=== PATIENT | female | born 1950 | race Two or more races ===

== ENCOUNTER 2024-09-26 09:21 | Inpatient (IN) | payer OTHER, MEDICAID, MEDICARE, SELFPAY ==
[2024-09-26] VITALS (8 sets, daily range): BP systolic 140–211; BP diastolic 60–100; PULSE 63–90; RESP 18–20; TEMP 36.4–36.7; O2SAT 94–97; BMI 47.5
--- NOTE | 2024-09-26 09:58 | XR_ITS ---
Examination: CT chest with intravenous contrast CT abdomen with intravenous contrast CT pelvis with intravenous contrast 2-D coronal and sagittal reconstructions Time of exam: September 26, 2024 1302 hrs. Indications: Right-sided abdominal pain radiating to the back beginning 2 weeks ago, palpable mass right side of the abdomen CTDI: vol (mGy) : 16.9 DLP: (mGycm): 1104 Technique: Multiple axial images of the chest, abdomen and pelvis with intravenous contrast, 3.0 mm slice thickness. Images obtained post intravenous injection Isovue 370 60 cc. 2-D sagittal and coronal reconstructions. Low dose protocols were performed. One or more of the following dose reduction techniques were used; automated exposure control, adjustment of the mA and/or KV according to patient size, use of iterative reconstruction technique. Findings: No thoracic aortic aneurysm dilatation Main pulmonary artery segment 33 mm No paratracheal tracheobronchial or bronchopulmonary adenopathy Pathologic right axillary lymphadenopathy, the largest right axillary mass 5.6 cm Retroareolar right breast mass, axial image 39, measuring 16 mm with possible skin thickening Thickening of the right chest wall, axial image 58, measuring up to 16 mm At least 18 bilateral pulmonary nodules, the largest in the right upper lobe 22 mm and the largest in the left lung 10 mm Liver cysts No gallstones Retrocardiac gastric hernia Solid-appearing splenic lesion 16 mm No pancreatic mass No adrenal mass Peritoneal tumor nodules left upper abdomen, 23 mm, 14 mm, anterior abdomen 20 mm No hydronephrosis Normal appendix 10 mm fat-containing umbilical hernia Colonic diverticulosis Axial image 224 suspicious for 30 x 32 mm sigmoid colon has been Urinary bladder intact Subcutaneous soft tissue metastatic masses left lateral pelvic wall image 239, measuring 34 mm, upper posterior right lateral abdominal wall image 114, measuring 22 mm Prominent osteopenia Osteolytic lesion posterior L5 vertebral body, 14 mm image 263 Osteolytic lesion 12 mm right iliac bone image 291 Impression: Pathologic right axillary lymphadenopathy 16mm retroareolar right breast mass Thickening of the right chest wall measuring up to 16 mm Recommend bilateral breast sonography diagnostic mammography follow-up Numerous metastatic pulmonary nodular masses 16 mm solid splenic lesion Peritoneal soft tissue tumor nodules 30 x 32 mm solid mass in the sigmoid colon, recommend colonoscopy to confirm malignant neoplasm of the sigmoid colon Subcutaneous soft tissue metastatic masses as above Osteolytic lesion L5, right iliac bone Consider whole body PET CT scan follow-up
--- NOTE | 2024-09-26 09:59 | PD.EDRME ---
Rapid Medical Screening Exam RME Arrival date/time: 09/26/24 09:21 74-year-old female presents emergency department complains of right flank pain right-sided back pain and abdominal pain patient also mentioned that she has a ball right flank region Chief Complaint: Back Pain/Injury Time Seen by Provider: 09/26/24 09:37 Vital signs: Vital Signs Temperature 98.0 F 09/26/24 09:46 Pulse Rate 77 09/26/24 09:46 Respiratory Rate 18 09/26/24 09:46 Blood Pressure 189/70 H 09/26/24 09:46 Pulse Oximetry (%) 95 09/26/24 09:46 Oxygen Delivery Method Room Air 09/26/24 09:46
[2024-09-26 10:47] LABS: Collection Type, Urine Clean Catch
[2024-09-26 10:55] LABS: Basophils % (Auto) 0 % (0-2.5); Eosinophils # (Auto) 0.1 Thou/mm3 (0.0-0.5); Eosinophils % (Auto) 2 % (0-10); Hematocrit 41.7 % (36.0-46.0); Hemoglobin 14.3 g/dL (12.0-16.0); Immature Granulocytes % (Auto) 1 % (0-0); Immature Granulocytes Auto 0.04 Thou/mm3 (0.00-0.00); Lymphocytes # (Auto) 1.4 Thou/mm3 (1.0-4.8); Lymphocytes % (Auto) 20 % (10-50); Mean Corpuscular HGB Conc 34.3 g/dl (31.0-37.0); Mean Corpuscular Hemoglobin 29.1 pg (25.0-35.0); Mean Corpuscular Volume 85 fL (80-100); Monocytes # (Auto) 0.7 Thou/mm3 (0.0-0.8); Monocytes % (Auto) 10 % (0-12); Neutrophils # (Auto) 4.7 Thou/mm3 (1.8-7.7); Neutrophils % (Auto) 67 % (37-80); Nucleated Red Blood Cell % 0 /100 WBC (0); Platelet Count 224 Thou/mm3 (140-440); RDW Standard Deviation 39.8 fL (36.4-46.3); Red Blood Count 4.91 Miln/mm3 (4.00-5.20)
[2024-09-26 11:11] LABS: Alanine Aminotransferase 14 U/L (10-49); Albumin, Serum 4.4 gm/dL (3.4-4.8); Albumin/Globulin Ratio 1.6 (1.2-2.2); Alkaline Phosphatase 90 U/L (46-116); Anion Gap 8 (7-16); Aspartate Amino Transferase 12 U/L (0-34); BUN/Creatinine Ratio 23 Ratio (12-20); Bilirubin,Total 0.5 mg/dL (0.3-1.2); Blood Urea Nitrogen 16 mg/dL (9-23); C-Reactive Protein 1.2 mg/dL (0.0-0.9); Calcium 9.2 mg/dL (8.3-10.6); Calcium (Corrected) 9.2 mg/dL (8.5-10.1); Carbon Dioxide 28.1 mMol/L (20.0-31.0); Chloride 105 mMol/L (98-107); Creatinine (Component) 0.7 mg/dL (0.6-1.3); Estimated Creatinine Clearance 76.3 mL/min (>60); Globulin 2.8 gm/dL (2.3-3.5); Glucose 128 mg/dL (74-106); Lipase 31 U/L (12-53); Osmolality,Calculated 284 (275-295); Potassium 4.1 mMol/L (3.4-5.1); Sodium 141 mMol/L (136-145); Total Protein 7.2 gm/dL (5.7-8.2); eGFR > 60 See Note
[2024-09-26 11:13] LABS: Bilirubin,Urine Negative (Negative); Blood,Urine Negative (Negative); Clarity,Urine Clear (Clear/Hazy); Color,Urine Yellow (Lt Yel-Yel); Glucose, Urine Negative (Negative); Ketones,Urine Negative (Negative); Leukocyte Esterase,Urine Positive (Negative); Nitrite,Urine Negative (Negative); Protein,Urine Trace (Neg - Trace); RBC,Urine 4 /hpf (0-3); Specific Gravity,Urine 1.031 (1.001-1.035); Squamous Epithelial Cell,Urine 7 /hpf (0-5); Urobilinogen,Urine Negative mg/dL (0.0-1.0); WBC,Urine 33 /hpf (0-5)
[2024-09-26 11:14] LABS: Culture Indicated,Urine Yes
--- NOTE | 2024-09-26 14:22 | EDNOTE_ITS ---
ED Back Injury Pain RME/HPI General Chief Complaint: Back Pain/Injury Stated Complaint: r side back pain x 2 weeks Time Seen by Provider: 09/26/24 09:37 Arrival date/time: 09/26/24 09:21 74-year-old female presents emergency department complains of right flank pain right-sided back pain and abdominal pain patient also mentioned that she has a ball right flank region Limitations: no limitations RME / HPI RME / HPI Narrative: 09/26/24 09:21 74-year-old female presents emergency department complains of right flank pain right-sided back pain and abdominal pain patient also mentioned that she has a ball right flank region Related Data Allergies Allergy/AdvReac Type Severity Reaction Status Date / Time NKA* Allergy Uncoded 09/26/24 09:21 Review of Systems Review of Systems Systems Reviewed: All systems reviewed, normal except as documented Constitutional Constitutional: Reports system reviewed and no additional complaints, except as documented, Denies fever(s) and Denies headache(s) Eyes Eyes: Reports system reviewed and no additional complaints, except as documented and Denies blurry vision ENT Ears, Nose, Mouth, and Throat: Reports system reviewed and no additional complaints, except as documented, Denies headache(s), Denies nasal congestion and Denies nasal discharge Cardiovascular Cardiovascular: Reports system reviewed and no additional complaints, except as documented, Denies chest pain and Denies dyspnea Respiratory Respiratory: Reports system reviewed and no additional complaints, except as documented, Denies chest congestion, Denies cough and Denies dyspnea Gastrointestinal Gastrointestinal: Reports system reviewed and no additional complaints, except as documented and Reports abdominal pain Musculoskeletal Musculoskeletal: Reports system reviewed and no additional complaints, except as documented and Reports back pain Integumentary/Breasts Skin/Breast: Reports system reviewed and no additional complaints, except as documented and Denies rash Neurologic Neurologic: Reports system reviewed and no additional complaints, except as documented, Reports as per HPI and Denies headache(s) Past Medical History Past Medical History CARDIAC: Negative Cardiac Disorders RESPIRATORY: Negative Asthma GENITOURINARY: Negative Renal Disease ENDOCRINE: Negative Diabetes Mellitus Type 2 HEMATOLOGIC: Negative Sickle Cell Disease Social History SMOKING STATUS: Never smoker ED Exam General Limitations: Present no limitations General appearance: Present alert and in no apparent distress Head Head exam: Present atraumatic, normocephalic and normal inspection Eye Eye exam: Present normal appearance, PERRL and EOMI ENT ENT exam: Present normal exam, normal oropharynx and mucous membranes moist Neck Neck exam: Present normal inspection, full ROM and trachea midline Chest Chest inspection: Present normal inspection and symmetric chest wall rise Respiratory Respiratory exam: Present normal lung sounds bilaterally Cardiovascular Cardiovascular exam: Present regular rate, normal rhythm and normal heart sounds Abdominal Exam Abdominal exam: Present normal bowel sounds and other (Palpable mass right side of abdomen) Extremities Exam Extremities exam: Present normal inspection and full ROM Back Exam Back exam: Present normal inspection and full ROM Neurological Exam Neurological exam: Present alert, oriented X3 and CN II-XII intact Psychiatric Psychiatric exam: Present normal affect and normal mood Skin Skin exam: Present warm, dry, intact and normal color Course Quality Measures none Orders Category Date Time Status COVID-19 Screening Questionnaire NOW Care 09/26/24 14:[address] Screening NOW Care 09/26/24 09:59 Active Decision to Admit X1 Care 09/26/24 14:22 Active Insert IV NOW Care 09/26/24 09:59 Active Consult to Gastroenterology Stat Cons 09/26/24 14:21 Ordered Consult to Oncology Stat Cons 09/26/24 14:[address] chest abdomen pelvis w Stat Exams 09/26/24 09:58 Completed CBC Stat Lab 09/26/24 10:25 Completed CRP [C-Reactive Protein] Stat Lab 09/26/24 10:25 Completed Comprehensive Metabolic Panel Stat Lab 09/26/24 10:25 Completed Lipase Stat Lab 09/26/24 10:25 Completed UA, C/S IF [Urinalysis, C/S if Indicated] Stat Lab 09/26/24 10:38 Completed Urine Culture Stat Lab 09/26/24 10:38 Received Vital Signs Vital signs: Vital Signs Temperature 98.0 F 09/26/24 09:46 Pulse Rate 77 09/26/24 09:46 Respiratory Rate 18 09/26/24 09:46 Blood Pressure 189/70 H 09/26/24 09:46 Pulse Oximetry (%) 95 09/26/24 09:46 Oxygen Delivery Method Room Air 09/26/24 09:46 O2 saturation 95% room air within normal limits Back Pain / Injury MDM Narrative MDM Narrative:: 74-year-old female presents emergency department complains of right flank pain right-sided back pain and abdominal pain patient also mentioned that she has a ball right flank region On exam patient does not appear ill or toxic patient's not appear in acute distress Lab work unremarkable other than patient appears to have leukocytosis no bacteria I reviewed the patient's CAT scan patient has significant findings consistent with metastatic cancer I believe patient will require biopsy and multiple consults for further evaluation Consultation: I spoke with Dr. Tyler who states we should bring the patient to the hospital for colonoscopy and further evaluation Consultation: I spoke with Dr. Meredith who states he will consult At time of admission patient is in no distress Spoke with resident about the patient urinalysis results I did not treat the urine here in the emergency department I gave him the option of treating on an inpatient basis immediately or to wait for culture Patient data External records reviewed:: [facility] previous records Clinical information provided by:: patient Social determinants that could affect healthcare access:: none Patient has the following chronic illnesses:: See history How is presenting disease/condition affected by chronic disease/condition?: uneffected by Evaluation data The following diagnostics were reviewed and interpreted by me:: lab results and radiology exam(s) Lab and/or radiology exams considered but not ordered:: Labs and radiology obtained Interpretation Summary: Reviewed by me Medications / Prescriptions Medications or Prescriptions considered but not ordered:: No meds Medication administrations:: No meds Consultations Consultation(s) initiated? (list below): Yes Consultation #1 (Physician, Specialty, Details): Dr. Tyler GI specialist Consultation #2 (Physician, Specialty, Details): Dr. Meredith oncology Diagnosis Differential diagnosis back pain/injury: lumbar radiculopathy, strain of lumbar region and other (Breast cancer, colon cancer, metastatic cancer) Most likely diagnosis given after review of the tests above:: Metastatic cancer Admission Indicated Admission indicated?: indicated Admission Request Was there a request for admission?: Yes Admission Attestation Admission request attestation: Discussed case with [] from Hospitalist service regarding admission. Discussed patients ED course, exam findings, labs, and radiology results. The Hospitalist [agrees,declines] to accept the patient for admission. Disposition Plan Disposition Plan: Admit Discharge Plan Plan Patient Disposition: Admit Acute Care w/in Hospital Disposition Comment: Stable Prescriptions/Referrals Referrals: Iris Nuno MD [Primary Care Provider] - In 1 week Problem List Clinical Impression: Metastatic cancer, Mass of colon, Osteolytic lesion Patient/Caregiver Discharge Instructions Print Language: Frisian Stand Alone Forms: Jennifer Award Info., Patient Portal Info Letter PA/JOURNEYMAN PIPE FITTER Supervising Physician PA/JOURNEYMAN PIPE FITTER Supervising Physician: Dr Patterson
--- NOTE | 2024-09-26 16:02 | ESHP_ITS ---
<Statement entered by Nathan Conteh MD - 09/26/24 16:13> This patient is a 74-year-old female admitted for sigmoid mass with possible advanced malignancy workup. CT abdomen was significant for multiple findings including sigmoid mass breast mass pulmonary nodules and osteolytic lesions. GI has been consulted as well as oncologist for further evaluation. Initial vitals showed hypertensive urgency. CRP was elevated. UA showed pyuria however patient denied any symptoms. She came to the hospital due to intractable pain in her right flank. Patient denied following up with any PCP as outpatient. Patient has a remote history of using methamphetamine as per patient's own history. Will likely follow-up on colonoscopy as per GI recommendations and started on GoLytely prep. Will consider CT-guided biopsy for breast mass. Ordered tumor markers for further evaluation. All labs and orders were reviewed. I saw and examined the patient, and I agree with current management stated by Dr Razia MD,PGY1. Plan of care was discussed with the attending physician and resident physician. Disclaimer: Despite multiple revisions, due to the dictation software being used, the document bellow may not be free of grammatical errors including phonetic/typographic errors. However, this does not deter from our commitment to providing health care in the patient's best interest in mind. Dr. Puja MD, PGY 2 Documentation for date of: 09/26/24 HPI History of Present Illness History of present illness: CC: abdominal pain Patient is a 74-year-old female with limited past medical history of possible diabetes mellitus (?) denied any medication and has not followed with primary care provider in over 5 years. Patient arrived to the emergency room with a chief complaint of abdominal pain stated that 06/17 and does not radiate. Patient stated the pain has been ongoing for the past 2 week, but decided to come in today to the emergency room because pain was constant. Patient stated diffuse tenderness and has also noted hard distend abdomen near the right lower quadrant. Patient is also stated she has a right sided breast lump ongoing for over 2 weeks. Patient denies any discharge or discoloration from breast lump. Patient denied any recent weight loss. Patient denied any hematemesis or hematochezia. Denied melena. Lumbar pain also present, increased with movement toward same side,does not radiate. Patient denied any sick contacts. Patient denied any dysuria or urinary hesitation. Patient denied history of hypertension. Possible history of diabetes but no medication on board. Admitted on 09/26/2024 for intractable abdominal pain. ER Course: In the emergency room patient blood pressure was elevated 189/70, kidney function within normal limits, within a normal WBC count of 7, glucose within normal limits and C-reactive protein 1.2 (high). AST and ALT numbers within normal limits. UA positive for esterase and WBC count with 33, no bacteria noted. Urine culture obtained. Abdomen chest pelvis CT showed: Pathological right axial lymphadenopathy, a 16mm right atrial alveolar right breast mass, thickening of the right chest wall measuring up to 16 mm, multiple masslike pulmonary nodules, 16mm solid splenic lesion, peritoneal soft tissue tumor nodules, 38 x 32 mm solid mass in the sigmoid colon, subcutaneous soft tissue metastatic masses, osteolytic lesions of 5 right iliac bone. Recommendation to follow-up with whole-body PET CT scan Dr. Tyler and Dr. Meredith oncology were consulted from the emergency room. 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 NO Hoarseness, NO sore throat, NO swollen neck. Cardiac: NO Palpitations, NO dyspnea on exertion, NO orthopnea, NO paroxysmal nocturnal dyspnea, NO edema Respiratory: NO Shortness of Breath, NO Wheezing, NO Cough, NO Sputum, NO hemoptysis GI:NO appetite, Yes nausea, NO vomiting, NO dysphagia, NO changes in bowel frequency, NO stool color, NO diarrhea, NO constipation, NO hemetemesis, NO hemorrhoids, NO melena, NO hematechezia, Yes abdominal pain, NO jaundice Renal: NO frequency, NO hesitancy, NO urgency, NO hematuria, NO nocturia, NO incontinence MSK: NO muscle weakness, NO gout, NO arthritis, NO muscle stiffness, yes Lumbar pain Neuro: NO headaches, NO tremors, NO weakness, NO paralysis, NO seizures, NO loss of consciousness, NO numbness. Hem: NO anemia, NO easy bruising/bleeding, NO petechiae, NO purpura Endo: NO heat/cold intolerance, NO excessive sweating, NO polyuria, NO polydipsia, NO polyphagia, NO thyroid problems, NO diabetes Pysch: NO mood, NO anxiety, NO depression Exam Vital Signs Temp Pulse Resp BP Pulse Ox O2 Del Method 98.0 F 77 18 189/70 H 95 Room Air 09/26/24 09:46 09/26/24 09:46 09/26/24 09:46 09/26/24 09:46 09/26/24 09:46 09/26/24 09:46 Narrative Exam General Appearance: Alert & Oriented X3, well-nourished female who is lying in bed in mild distress, abnormal tissue grwoth noted on right breast exam. HEENT: Skull symmetrical and atraumatic. Conjunctivae pink and moist. Pupils equal, round, reactive to light and accommodation (PERRL). External ear without lesion or discharge. Straight, nares patient, mucosa pink, no discharge. No thyroid nodule appreciated. Cardio: Normal Rate and Rhythm with S1 and S2 heart sounds. No murmurs or extra heart sounds auscultated. No bruits on carotid auscultation. No peripheral edema or cyanosis. Lungs: Symmetric with good expansion. Chest and back non-tender. Breath sounds vesicular without crackles, wheezing or rhonchi Abdomen: diffuse tender, Non-distended, Normal Reactive Bowel Sounds, increased hard abnormal tissue growth subqutaneous noted on physical exam Neuro: Alert, cooperative, oriented to person, place, and time. Speech clear. CN grossly intact. Upper motor strength 5/5 and Lower motor strength 5/5. Sensation intact. Results: Labs 09/26/24 10:25 09/26/24 10:25 Labs: Short CBC 09/26/24 Range/Units 10:25 WBC 7.0 (3.6-11.0) Thou/mm3 Hgb 14.3 (12.0-16.0) g/dL Hct 41.7 (36.0-46.0) % Plt Count 224 (140-440) Thou/mm3 BMP 09/26/24 10:25 Sodium 141 Potassium 4.1 Chloride 105 Carbon Dioxide 28.1 BUN 16 Creatinine 0.7 Glucose 128 H Calcium 9.2 Liver Function 09/26/24 Range/Units 10:25 Total Bilirubin 0.5 (0.3-1.2) mg/dL AST 12 (0-34) U/L ALT 14 (10-49) U/L Alkaline Phosphatase 90 (46-116) U/L Albumin 4.4 (3.4-4.8) gm/dL Urine 09/26/24 Range/Units 10:38 Urine Color Yellow (Lt Yel-Yel) Urine Clarity Clear (Clear/Hazy) Urine pH 6.0 (5.0-7.0) Ur Specific [place] 1.031 (1.001-1.035) Urine Protein Trace (Neg - Trace) Urine Glucose (UA) Negative (Negative) Quality Measures Quality Measures none Advance care planning discussed with:: other Medications Home Medications and Allergies Allergies Allergy/AdvReac Type Severity Reaction Status Date / Time No Known Allergies Allergy Unverified 09/26/24 15:54 Visit Medications Acetaminophen (Acetaminophen 325 Mg Tablet) 650 mg PO Q6H PRN PRN Reason: Mild Pain 1-3 or Fever >100.4 Stop: 10/26/24 15:34 Hydrocodone Bitart/Acetaminophen (Hydrocodone/Apap 5/325 Tablet) 1 tab PO Q4HR PRN PRN Reason: PAIN SCALE 4-10(Mod-Sev Stop: 10/01/24 15:34 Heparin Sodium (Porcine) (Heparin Sod Inj 5000 Unit/Ml Vial) 5,000 unit SC Q12HR ZACARIAS Stop: 10/10/24 20:59 Lisinopril (Lisinopril 2.5 Mg Tablet) 5 mg PO QDAY ZACARIAS Stop: 10/26/24 15:44 Morphine Sulfate (Morphine Sulf Inj 10 Mg/Ml Vial) 1 mg IVP Q4HR PRN PRN Reason: Pain 7-10 Stop: 10/01/24 15:51 Ondansetron HCl (Ondansetron Inj 2 Mg/Ml Inj 2 Ml) 4 mg IV Q6H PRN; Protocol PRN Reason: NAUSEA OR VOMITING Stop: 10/26/24 15:34 Pantoprazole Sodium (Pantoprazole Inj 40 Mg Vial) 40 mg IV QDAY ZACARIAS Stop: 10/26/24 15:59 Discontinued Medications Pantoprazole Sodium (Pantoprazole 40 Mg Tablet) 40 mg PO QDAY ZACARIAS Stop: 10/27/24 08:59 Polyethylene Glycol/Electrolytes (Na Venegas/Nahco3/Laith/Peg (Golytely) 4,000 Ml Btl) 4,000 ml PO X1 ONE Stop: 09/26/24 15:42 Assessment & Plan Plan Patient is a 74-year-old female with limited past medical history of possible diabetes mellitus (?) denied any medication who was admitted on 09/26/2024 for intractable abdominal pain. #Intractable abdominal pain On to have increased abdominal pain with diffuse tenderness and on physical exam noted to have a abnormal tissue growth subcutaneous, not soft not mobile. Noted about 2 weeks ago as well as a breast abnormal subcutaneous tissue growth. On CT chest abdomen several masses were noted. Included but not limited to a 38 x 32 solid mass in the sigmoid colon, metastasis to soft tissue of against abdominal wall, osteolytic llesions of the bone, right axial lymphadenopathy, right alveolar right breast mass, splenic lesions, and masslike pulmonary nodules. Given findings on CT malignancy cannot be ruled out. DDx: Pancreatitis less likely given Lipase 36 vs less likely gastroporesis from diabetes Mellitus as patient has not follow up with a pcp. Plan -CEA, CA 19, AFP -Colonoscopy scheduled for tomorrow -FOBT -Clear liquid diet -GoLytely -Protonix 40 IV daily -Drug screen -Pain Management (Acetaminophe, Noroc, and Morphine) -CBC CMP -Gastroenterology consulted, Dr. Tyler, appreciate recommendations -Radiation oncology consulted, Dr. Meredith, appreciate recommendations #Hypertension urgency #Hypertension Possible history of hypertension, but patient denied any medication on board for that. May be secondary to pain. Plan -Lisinopril 10 mg daily -A1c -Lipid panel -TSH -A1c -Drug screen Health Maintenance: Disp: Pt is currently admitted to floors for further management of abdominal pain , awaiting colonoscopy FEN: Clear Liquid Diet DVT: on subQ heparin GI: protonix 40 mg IV Code: Full Code - The patient's plan was discussed with attending Dr. Sorensen and senior residents Dr. Puja Randle MD PGY1 Internal Medicine Attending Provider Attestation/Addendum I attest that I was physically present for the evaluation, physical examination, lab and imaging review of the patient with the residents. I discussed the case with the residents and agree with the findings and plans of care as documented above. Patient is a 74 years old female without known past medical history presented to the ED with complaint of abdominal pain.? Patient has been having the pain for the last 2 weeks but recently started becoming severe, 10 out of 10 and decided to visit the ED.? In the ED, she was found to be hypertensive with blood pressure of 189/70.? Abdomen/chest/pelvis CT was done which showed multiple masses right breast, chest wall, lungs, spleen, peritoneum, colon and osteolytic bone lesion.? Discussed with GI, recommended inpatient admission, colonoscopy with biopsy.? Oncology has also been consulted by ED.? We will admit the patient for intractable pain needing IV analgesics.? We will start her on antihypertensives as well.? Plan to discuss with oncology and decide on obtaining biopsies. Mina Sorensen MD
[2024-09-26 16:16] LABS: Magnesium 2.1 mg/dL (1.6-2.6); Phosphorous 3.7 mg/dL (2.4-5.1)
[2024-09-26 16:52] LABS: Amphetamine/Methamp Scrn,U Negative (Negative); Barbiturate Screen,Urine Negative (Negative); Benzodiazepines Screen,Urine Negative (Negative); Benzoylecgonine Screen, Ur Negative (Negative); Fentanyl Screen,Urine Negative (Negative); Opiate Screen,Urine Negative (Negative); THC Screen,Urine Negative (Negative)
[2024-09-26] MEDS: Lisinopril 2.5 MG TABLET 10 MG PO (17:00)
[2024-09-26] MEDS: PANTOPRAZOLE INJ 40 MG VIAL IV (17:02)
[2024-09-26] MEDS: hydrALAZINE INJ 20 MG/ML VIAL 10 MG IV (17:55)
--- NOTE | 2024-09-26 18:16 | PC.CC ---
Pt Giuliana Jesus is a 74 yr old female admitted to hospitalist services for intractable abd pain, hypertension urgency. ASW met with pt and her daughter Sierra Jesus [phone] at bedside to complete initial assessment. Pt expressed verbal consent for her daughter to remain at bedside for assessment. At time of encounter pt is noted to be alert and oriented to person, place and situation. Pt expressed understanding admission orders. Pt able to confirm demographic information. Pt is from home [address] [place] [address] [address] Per pt her daughter lives with her in the home. Pt identifies her daughter Sierra as surrogate DM. At baseline pt reports being independent with ambulation and with completing her own ADLs. Per pt she was taking oral diabetic medication, but states she is uncertain if she is diabetic. Pt is not on dialysis. Pt does not require supplemental O2. Pt has a new primary provider Dr. Iris Nuno, whom pt will meet with for the first time on09/30/24 to establish care. [facility] pt [facility] At time of D/c pt will return home with family providing transport. At this time pt expresses no further concerns.
[2024-09-26] MEDS: HYDROcodone/APAP 5/325 TABLET 1 TAB PO ×2 (18:47→22:50)
--- NOTE | 2024-09-26 19:36 | ESCONSULT_ITS ---
HPI Data of Consult Requesting Physician: Mina Sorensen MD Primary Care Provider: Iris Nuno MD Consult Narrative Reason for consult: Pain right flank abnormal CT chest abdomen and pelvis with contrast History of present illness: 74 years old female presented to the hospital with right flank pain I got a call from physician stating Ray Berumen Case discussed CT scan of the abdomen pelvis and chest showed the following findings Pathological right axillary lymphadenopathy 16mm right subareolar breast mass Thickening of the right chest wall Multiple metastatic pulmonary nodules Peritoneal nodules multiple 30 x 32 mm mass sigmoid colon Subcutaneous soft tissue masses Osteolytic L5 lesion I advised admission for further evaluation management and possible oncology consultation Case also discussed with the internal medicine team GoLytely started Tumor markers ordered cc:: cc: Mina Sorensen MD Review of Systems Review of Systems Systems Reviewed: All systems reviewed, normal except as documented Past Medical History Surgical History OTHER SURGICAL HX: Diabetes mellitus type 2 BTL Essential hypertension Meds Home Medications and Allergies Home Medications ?Medication ?Instructions ?Recorded ?Confirmed ?Type No Known Home Medications 09/26/24 09/26/24 History Allergies Allergy/AdvReac Type Severity Reaction Status Date / Time No Known Allergies Allergy Unverified 09/26/24 15:54 Exam Vital Signs Temp Pulse Resp BP Pulse Ox O2 Del Method 97.7 F 76 19 202/92 H 96 Room Air 09/26/24 16:12 09/26/24 17:55 09/26/24 16:12 09/26/24 17:55 09/26/24 16:12 09/26/24 16:12 Constitutional Comments: Chronically ill-appearing Routine Respiratory Exam Comments: Normal to auscultation Routine Abdominal Exam Comments: Positive bowel sounds Results Labs 09/26/24 10:25 09/26/24 10:25 Labs: Short CBC 09/26/24 Range/Units 10:25 WBC 7.0 (3.6-11.0) Thou/mm3 Hgb 14.3 (12.0-16.0) g/dL Hct 41.7 (36.0-46.0) % Plt Count 224 (140-440) Thou/mm3 BMP 09/26/24 10:25 Sodium 141 Potassium 4.1 Chloride 105 Carbon Dioxide 28.1 BUN 16 Creatinine 0.7 Glucose 128 H Calcium 9.2 Liver Function 09/26/24 Range/Units 10:25 Total Bilirubin 0.5 (0.3-1.2) mg/dL AST 12 (0-34) U/L ALT 14 (10-49) U/L Alkaline Phosphatase 90 (46-116) U/L Albumin 4.4 (3.4-4.8) gm/dL Urine 09/26/24 Range/Units 10:38 Urine Color Yellow (Lt Yel-Yel) Urine Clarity Clear (Clear/Hazy) Urine pH 6.0 (5.0-7.0) Ur Specific [place] 1.031 (1.001-1.035) Urine Protein Trace (Neg - Trace) Urine Glucose (UA) Negative (Negative) Assessment and Plan Additional Assessment & Plan Additional Plan: # 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
[2024-09-26] MEDS: NA SU/NAHCO3/KC/PEG (Golytely) 4,000 ML BTL 4000 ML PO (20:31)
[2024-09-26] MEDS: HEPARIN SOD INJ 5000 UNIT/ML VIAL SC (20:33)
[2024-09-27] VITALS (28 sets, daily range): BP systolic 103–206; BP diastolic 40–84; PULSE 70–94; RESP 12–21; TEMP 35.9–36.7; O2SAT 93–99
[2024-09-27 03:12] LABS: AFP Non-Pregnant < 1.30 ng/mL (<8.10); Carcinoembryonic Antigen 1.1 ng/mL (0.0-5.0)
[2024-09-27 05:56] LABS: Basophils % (Auto) 0 % (0-2.5); Eosinophils # (Auto) 0.2 Thou/mm3 (0.0-0.5); Eosinophils % (Auto) 3 % (0-10); Hemoglobin 14.1 g/dL (12.0-16.0); Immature Granulocytes % (Auto) 0 % (0-0); Immature Granulocytes Auto 0.03 Thou/mm3 (0.00-0.00); Lymphocytes # (Auto) 1.5 Thou/mm3 (1.0-4.8); Lymphocytes % (Auto) 22 % (10-50); Mean Corpuscular HGB Conc 33.6 g/dl (31.0-37.0); Mean Corpuscular Volume 86 fL (80-100); Monocytes # (Auto) 0.9 Thou/mm3 (0.0-0.8); Monocytes % (Auto) 12 % (0-12); Neutrophils # (Auto) 4.3 Thou/mm3 (1.8-7.7); Neutrophils % (Auto) 62 % (37-80); Nucleated Red Blood Cell % 0 /100 WBC (0); Platelet Count 222 Thou/mm3 (140-440); RDW Standard Deviation 40.2 fL (36.4-46.3); Red Blood Count 4.86 Miln/mm3 (4.00-5.20)
[2024-09-27 06:24] LABS: Alanine Aminotransferase 13 U/L (10-49); Albumin, Serum 4.4 gm/dL (3.4-4.8); Albumin/Globulin Ratio 1.6 (1.2-2.2); Alkaline Phosphatase 87 U/L (46-116); Anion Gap 10 (7-16); Aspartate Amino Transferase 11 U/L (0-34); BUN/Creatinine Ratio 21 Ratio (12-20); Bilirubin,Total 0.6 mg/dL (0.3-1.2); Blood Urea Nitrogen 15 mg/dL (9-23); Carbon Dioxide 29.2 mMol/L (20.0-31.0); Chloride 101 mMol/L (98-107); Cholesterol 170 mg/dL (132-200); Creatinine (Component) 0.7 mg/dL (0.6-1.3); Estimated Creatinine Clearance 76.3 mL/min (>60); Globulin 2.8 gm/dL (2.3-3.5); Glucose 138 mg/dL (74-106); HDL Cholesterol 42 mg/dL (40-60); LDL Cholesterol,Calculated 105 mg/dL (0-130); Magnesium 2.1 mg/dL (1.6-2.6); Osmolality,Calculated 282 (275-295); Phosphorous 3.3 mg/dL (2.4-5.1); Potassium 4.2 mMol/L (3.4-5.1); Sodium 140 mMol/L (136-145); Thyroid Stimulating Hormone 3.38 uIU/mL (0.55-4.78); Total Protein 7.2 gm/dL (5.7-8.2); Triglycerides 114 mg/dL (30-150); eGFR > 60 See Note
--- NOTE | 2024-09-27 06:28 | ESCONSULT_ITS ---
HPI Data of Consult Consult date: 09/27/24 Requesting Physician: Mina Sorensen MD Primary Care Provider: Iris Nuno MD Consult Narrative Reason for consult: Suspected widespread malignancy History of present illness: 74-year-old lady who rarely saw physicians over the years admitted yesterday with symptoms of pain in her right flank. CT scan chest abdomen pelvis 09/26/2024 revealed pathological right ax lymphadenopathy 16 mm retroareolar right breast mass thickening of the right chest wall measuring up to 16 mm numerous metastatic pulmonary nodules peritoneal soft tissue tumor nodules 30 x 32 mm solid mass in sigmoid colon and numerous soft tissue metastatic masses. Also noted was osteolytic lesion L5 right iliac bone. Dr. Tyler senior java web developer is planning colonoscopy with possible biopsy today. CBC CMP unremarkable except mildly elevated glucose AFP CEA low. CA 15-3 CA 19?9 pending. Patient now referred for oncological consultation. cc:: cc: Mina Sorensen MD Past Medical History Family History OTHER FAMILY HX: Mother of esophageal CA. Social History SOCIAL: Limited mets and cannabis over 30 years ago non-smoker nondrinker retired from working as a care provider Past Medical History Comments PMH COMMENT: Hypertension diabetes mellitus tubal ligation Meds Home Medications and Allergies Home Medications ?Medication ?Instructions ?Recorded ?Confirmed ?Type No Known Home Medications 09/26/24 09/26/24 History Allergies Allergy/AdvReac Type Severity Reaction Status Date / Time No Known Allergies Allergy Unverified 09/26/24 15:54 Exam Vital Signs Temp Pulse Resp BP Pulse Ox O2 Del Method 97.7 F 74 18 175/75 H 95 Room Air 09/27/24 04:00 09/27/24 04:00 09/27/24 04:00 09/27/24 04:00 09/27/24 04:00 09/27/24 04:00 Narrative Exam Right axillary adenopathy and right breast mass palpated. Results Labs 09/27/24 04:42 09/27/24 04:42 Labs: Short CBC 09/26/24 09/27/24 Range/Units 10:25 04:42 WBC 7.0 7.0 (3.6-11.0) Thou/mm3 Hgb 14.3 14.1 (12.0-16.0) g/dL Hct 41.7 42.0 (36.0-46.0) % Plt Count 224 222 (140-440) Thou/mm3 BMP 09/26/24 09/27/24 10:25 04:42 Sodium 141 140 Potassium 4.1 4.2 Chloride 105 101 Carbon Dioxide 28.1 29.2 BUN 16 15 Creatinine 0.7 0.7 Glucose 128 H 138 H Calcium 9.2 9.0 Liver Function 09/26/24 09/27/24 Range/Units 10:25 04:42 Total Bilirubin 0.5 0.6 (0.3-1.2) mg/dL AST 12 11 (0-34) U/L ALT 14 13 (10-49) U/L Alkaline Phosphatase 90 87 (46-116) U/L Albumin 4.4 4.4 (3.4-4.8) gm/dL Urine 09/26/24 Range/Units 10:38 Urine Color Yellow (Lt Yel-Yel) Urine Clarity Clear (Clear/Hazy) Urine pH 6.0 (5.0-7.0) Ur Specific [place] 1.031 (1.001-1.035) Urine Protein Trace (Neg - Trace) Urine Glucose (UA) Negative (Negative) Assessment and Plan Additional Assessment & Plan Additional Plan: 1. Widespread malignancy involving right breast axilla lung bone, someone who rarely saw doctors over the years. 2. Solid mass in sigmoid colon awaiting colonoscopy and possible biopsy with Dr. Tyler. 3. Took the liberty of ordering a biopsy of right axillary node, due to high suspicion of adjacent breast cancer primary. Will follow.
[2024-09-27 06:38] LABS: CA 15-3 7.7 U/mL (<32.4)
[2024-09-27 06:51] LABS: Glucose Estimated Average 134 mg/dL (80-131); Hemoglobin A1C 6.3 % Hgb (4.8-6.0)
[2024-09-27] MEDS: Lisinopril 20 MG TABLET PO ×2 (08:36→15:50)
[2024-09-27] MEDS: PANTOPRAZOLE INJ 40 MG VIAL IV (08:36)
--- NOTE | 2024-09-27 10:36 | PC.SS ---
SS follow up note; Patient is pending Colonoscopy and pending Biopsy. GI is on board.
--- NOTE | 2024-09-27 10:57 | ESPR_ITS ---
<Statement entered by Nathan Conteh MD - 09/27/24 13:45> Patient was seen and examined at the bedside this morning. Patient reports that she is aware that she might have malignancy and oncologist Dr. Meredith spoke to her this morning about biopsy for axilla lymph node. Patient is currently drinking GoLytely prep for pending colonoscopy. Her blood pressure was elevated this morning 175/75. A1c was 6.3. We started her on lisinopril and increase the dose to 20 mg. Urine cultures are pending. Will follow-up with ultrasound- guided biopsy of axilla lymph node and colonoscopy as GI is also following the case. Patient was updated and all her concerns were addressed. Patient denied any bowel movement with blood. Hemoglobin remained stable.All labs and orders were reviewed. I saw and examined the patient, and I agree with current management stated by Dr Razia MD,PGY1. Plan of care was discussed with the attending physician and resident physician. Disclaimer: Despite multiple revisions, due to the dictation software being used, the document bellow may not be free of grammatical errors including phonetic/typographic errors. However, this does not deter from our commitment to providing health care in the patient's best interest in mind. Dr. Yady MD, PGY 2 Documentation for date of: 09/27/24 Subjective Subjective Interval history: No overnight events reported for patient. Patient pending colonoscopy, likely tonight as patient is almost complete with GoLytely and appears clear. Patient shared that 1969 there is possible diagnosis of uterine cancer but could also been cervical?patient is unsure. Patient followed up with a Pap smear which returned to normal. 3 years ago did experience ovarian pain but resolved on its own, no acute intervention taken. Patient has family support with her grandchildren and daughter who visits her. This morning patient shared that she had small bloody stool appearing bright red. SubQ heparin stopped and Compression device added. Dr. Meredith ordered axilllary biopsy. PT/INR ordered. Overall, patient is understanding of possible malignancy but still pending tumor markers and colonoscopy/biopsy. Lisinopril increased to 40 mg Qday given systolic bp of 174 and hydralazine still PRN. Exam Vital Signs Temp Pulse Resp BP Pulse Ox O2 Del Method 96.7 F L 77 20 157/58 H 99 Room Air 09/27/24 08:00 09/27/24 08:36 09/27/24 08:00 09/27/24 08:36 09/27/24 08:00 09/27/24 08:00 Narrative Exam General Appearance: Alert & Oriented X3, well-nourished female who is lying in bed in mild distress, abnormal tissue grwoth noted on right breast exam. HEENT: Skull symmetrical and atraumatic. Conjunctivae pink and moist. Pupils equal, round, reactive to light and accommodation (PERRL). External ear without lesion or discharge. Straight, nares patient, mucosa pink, no discharge. No thyroid nodule appreciated. Cardio: Normal Rate and Rhythm with S1 and S2 heart sounds. No murmurs or extra heart sounds auscultated. No bruits on carotid auscultation. No peripheral edema or cyanosis. Lungs: Symmetric with good expansion. Chest and back non-tender. Breath sounds vesicular without crackles, wheezing or rhonchi Abdomen: diffuse tender, Non-distended, Normal Reactive Bowel Sounds, increased hard abnormal tissue growth subqutaneous noted on physical exam Neuro: Alert, cooperative, oriented to person, place, and time. Speech clear. CN grossly intact. Upper motor strength 5/5 and Lower motor strength 5/5. Sensation intact. Objective Labs 09/27/24 04:42 09/27/24 04:42 Labs: Laboratory Results - last 24 hr 09/26/24 09/26/24 09/26/24 10:25 10:38 16:13 WBC 7.0 RBC 4.91 Hgb 14.3 Hct 41.7 MCV 85 MCH 29.1 MCHC 34.3 RDW Std Deviation 39.8 Plt Count 224 Neut % (Auto) 67 Lymph % (Auto) 20 [place] % (Auto) 10 Eos % (Auto) 2 Baso % (Auto) 0 Neut # (Auto) 4.7 Lymph # (Auto) 1.4 [place] # (Auto) 0.7 Eos # (Auto) 0.1 Baso # (Auto) 0.0 Immature Gran # (Auto) 0.04 H Absolute Nucleated RBC 0.00 Immature Gran % 1 H Nucleated RBC % 0 Sodium 141 Potassium 4.1 Chloride 105 Carbon Dioxide 28.1 Anion Gap 8 BUN 16 Creatinine 0.7 Estim Creat Clear Calc 76.3 eGFR > 60 BUN/Creatinine Ratio 23 H Glucose [address] Glu mg/dL Hemoglobin A1c Calculated Osmolality 284 Calcium 9.2 Corrected Calcium 9.2 Phosphorus 3.7 Magnesium 2.1 Total Bilirubin 0.5 AST 12 ALT 14 Alkaline Phosphatase 90 C-Reactive Prot, Quant 1.2 H Total Protein 7.2 Albumin 4.4 Globulin 2.8 Albumin/Globulin Ratio 1.6 Triglycerides Cholesterol LDL Cholesterol, Calc HDL Cholesterol Cholesterol/HDL Ratio Lipase 31 Tumor Marker AFP < 1.30 Carcinoembryonic Ag 1.1 CA 15-3 Antigen TSH Ur Collection Type Clean Catch Urine Color Yellow Urine Clarity Clear Urine pH 6.0 Ur Specific [place] 1.031 Urine Protein Trace Urine Glucose (UA) Negative Urine Ketones Negative Urine Blood Negative Urine Nitrite Negative Urine Bilirubin Negative Urine Urobilinogen (Auto) Negative Ur Leukocyte Esterase Positive Urine RBC 4 H Urine WBC 33 H Ur Squamous Epith Cells 7 H Urine Bacteria None Ur Culture Indicated? Yes Urine Opiates Screen Negative Urine Fentanyl Screen Negative Ur Barbiturates Screen Negative U Amphetamin/Meth Scrn Negative U Benzodiazepines Scrn Negative U Cocaine Metab Screen Negative U Marijuana (THC) Screen Negative 09/27/24 04:42 WBC 7.0 RBC 4.86 Hgb 14.1 Hct 42.0 MCV 86 MCH 29.0 MCHC 33.6 RDW Std Deviation 40.2 Plt Count 222 Neut % (Auto) 62 Lymph % (Auto) 22 [place] % (Auto) 12 Eos % (Auto) 3 Baso % (Auto) 0 Neut # (Auto) 4.3 Lymph # (Auto) 1.5 [place] # (Auto) 0.9 H Eos # (Auto) 0.2 Baso # (Auto) 0.0 Immature Gran # (Auto) 0.03 H Absolute Nucleated RBC 0.00 Immature Gran % 0 Nucleated RBC % 0 Sodium 140 Potassium 4.2 Chloride 101 Carbon Dioxide 29.2 Anion Gap 10 BUN 15 Creatinine 0.7 Estim Creat Clear Calc 76.3 eGFR > 60 BUN/Creatinine Ratio 21 H Glucose [address] Glu mg/dL 134 H Hemoglobin A1c 6.3 H Calculated Osmolality 282 Calcium 9.0 Corrected Calcium 9.0 Phosphorus 3.3 Magnesium 2.1 Total Bilirubin 0.6 AST 11 ALT 13 Alkaline Phosphatase 87 C-Reactive Prot, Quant Total Protein 7.2 Albumin 4.4 Globulin 2.8 Albumin/Globulin Ratio 1.6 Triglycerides 114 Cholesterol 170 LDL Cholesterol, Calc 105 HDL Cholesterol 42 Cholesterol/HDL Ratio 4.0 Lipase Tumor Marker AFP Carcinoembryonic Ag CA 15-3 Antigen 7.7 TSH 3.38 Ur Collection Type Urine Color Urine Clarity Urine pH Ur Specific [place] Urine Protein Urine Glucose (UA) Urine Ketones Urine Blood Urine Nitrite Urine Bilirubin Urine Urobilinogen (Auto) Ur Leukocyte Esterase Urine RBC Urine WBC Ur Squamous Epith Cells Urine Bacteria Ur Culture Indicated? Urine Opiates Screen Urine Fentanyl Screen Ur Barbiturates Screen U Amphetamin/Meth Scrn U Benzodiazepines Scrn U Cocaine Metab Screen U Marijuana (THC) Screen Quality Measures Quality Measures none Advance care planning discussed with:: other Assessment & Plan Assessment Current Active Medications: Generic Name Dose Route Start Last Admin Trade Name Freq PRN Reason Stop Dose Admin Acetaminophen 650 mg 09/26/24 15:35 Acetaminophen 325 Mg Tablet PO 10/26/24 15:34 Q6H PRN Mild Pain 1-3 or Fever >100.4 Hydrocodone Bitart/Acetaminophen 1 tab 09/26/24 15:35 09/26/24 22:50 Hydrocodone/Apap 5/325 Tablet PO 10/01/24 15:34 1 tab Q4HR PRN Administration PAIN SCALE 4-10(Mod-Sev Heparin Sodium (Porcine) 5,000 unit 09/26/24 21:00 09/27/24 08:28 Heparin Sod Inj 5000 Unit/Ml Vial SC 10/10/24 20:59 Not Given Q12HR ZACARIAS Hydralazine HCl 10 mg 09/26/24 17:28 09/26/24 17:55 Hydralazine Inj 20 Mg/Ml Vial IV 10/26/24 17:27 10 mg Q4HR PRN Administration hypertension Hydroxyzine HCl 10 mg 09/26/24 17:17 Hydroxyzine Hcl 10 Mg Tablet PO 10/26/24 17:16 Q6HR PRN ANXIETY Lisinopril 20 mg 09/27/24 09:00 09/27/24 08:36 Lisinopril 20 Mg Tablet PO 10/27/24 08:59 20 mg QDAY ZACARIAS Administration Melatonin 3 mg 09/26/24 21:00 09/27/24 02:19 Melatonin 3 Mg Tablet PO 10/26/24 20:59 Not Given HS ZACARIAS Morphine Sulfate 1 mg 09/26/24 15:52 Morphine Sulf Inj 10 Mg/Ml Vial IVP 10/01/24 15:51 Q4HR PRN Pain 7-10 Ondansetron HCl 4 mg 09/26/24 15:35 Ondansetron Inj 2 Mg/Ml Inj 2 Ml IV 10/26/24 15:34 Q6H PRN NAUSEA OR VOMITING Protocol Pantoprazole Sodium 40 mg 09/26/24 16:00 09/27/24 08:36 Pantoprazole Inj 40 Mg Vial IV 10/26/24 15:59 40 mg QDAY ZACARIAS Administration Plan Patient is a 74-year-old female with limited past medical history of possible diabetes mellitus (?) denied any medication who was admitted on 09/26/2024 for intractable abdominal pain. #Intractable abdominal pain #Hematochezia On to have increased abdominal pain with diffuse tenderness and on physical exam noted to have a abnormal tissue growth subcutaneous, not soft not mobile. Noted about 2 weeks ago as well as a breast abnormal subcutaneous tissue growth. On CT chest abdomen several masses were noted. Included but not limited to a 38 x 32 solid mass in the sigmoid colon, metastasis to soft tissue of against abdominal wall, osteolytic llesions of the bone, right axial lymphadenopathy, right alveolar right breast mass, splenic lesions, and masslike pulmonary nodules. Given findings on CT malignancy cannot be ruled out. DDx: Pancreatitis less likely given Lipase 36 vs less likely gastroporesis from diabetes Mellitus as patient has not follow up with a pcp. Diagnostics: CA 15, AFP, and CEA within limits. Plan -Colonoscopy scheduled for tomorrow -Axillary Biopsy -PT/PTT/INR for today and 09/28/2024 as well -Pending CA-19 -FOBT-Penidng -Clear liquid diet -GoLytely -Protonix 40 IV daily -Pain Management (Acetaminophe, Noroc, and Morphine) -CBC CMP -Gastroenterology consulted, Dr. Tyler, appreciate recommendations -Radiation oncology consulted, Dr. Meredith, appreciate recommendations #Hypertension #Hypertension urgency, improved. #Hyperlipidemia Possible history of hypertension, but patient denied any medication on board for that. Utox negative. A1c 6.3. ASCVD Risk Scole 32.1% Risk of Cardiovascular event (specially given elevated systolic blood pressure). Moderate to high intensitity statins. Start patient at moderate with 20 mg HS. Plan -Lisinopril 40 mg daily -Atorvastatin 20 mg HS Health Maintenance: Disp: Pt is currently admitted to floors for further management of abdominal pain , awaiting colonoscopy and axillary biopsy. FEN: Clear Liquid Diet, Colonoscopy scheduled for this evening 09/27/2024 DVT: compression device given single episode of hematochezia. GI: protonix 40 mg IV Code: Full Code - The patient's plan was discussed with attending Dr. Sorensen and senior residents Dr. Yady Randle MD PGY1 Internal Medicine Attending Provider Attestation/Addendum I attest that I was physically present for the evaluation, physical examination, lab and imaging review of the patient with the residents. I discussed the case with the residents and agree with the findings and plans of care as documented above. At bedside today, patient appears comfortable. Her pain is controlled with analgesics. She is planned for colonoscopy with GI today. Oncology on board, ordered axillary node biopsy. Mina Sorensen MD
--- NOTE | 2024-09-27 11:21 | PC.NURSE ---
Spoke with MD Eliana MD said that he will do the Biopsy In ultra sound, not in CT. Called Swapnil FOSTER to let him know to change the Modality to ultrasound instead of CT.
--- NOTE | 2024-09-27 11:31 | XR_ITS ---
Examinations: Ultrasound-guided percutaneous right axillary biopsy Right axillary sonography limited Exam date and time: September 27, 2024 1508 hours INDICATIONS: CT chest September 26, 2024 pathologic right axillary lymphadenopathy. Informed consent provided. Technique: A timeout was completed verifying correct patient, procedure, site, positioning, and special equipment if applicable Informed consent provided. The patient was placed in a supine position for the axillary biopsy Sonographic images of the breast were performed for localization of the enlarged axillary lymph node The patient's axilla was prepped and draped in sterile fashion. Maximum sterile barrier technique, hand hygiene, ultrasound sterile technique 1% lidocaine utilized for local anesthesia. Utilizing ultrasonographic guidance, 8 core biopsies were obtained of the suspicious axillary lymph node utilizing an 18-gauge BioPince needle. The specimens appears satisfactory. US guided axillary biopsy marker placement. Estimated blood loss 3 cc. The patient tolerated the procedure well and there were no complications. Impression: Successful ultrasound-guided percutaneous biopsy enlarged right axillary lymph node Ultrasound guided axillary biopsy marker placement.
[2024-09-27 13:22] LABS: Partial Thromboplastin Time 27.6 Seconds (22.0-36.0); Prothrombin Time 11.1 Seconds (9.0-12.2)
--- NOTE | 2024-09-27 16:08 | PC.NURSE ---
this nurse notified by HANDBAG OPERATOR of pt blood pressure 206/76 and heart rate 86, Wasiq notified, this nurse was instructed by MD to give PRN hydralazine, no new orders at this time.
[2024-09-27] MEDS: hydrALAZINE INJ 20 MG/ML VIAL 10 MG IV ×2 (16:12→16:54)
--- NOTE | 2024-09-27 16:45 | PC.NURSE ---
Harinder RN at bedside to take pt for colonoscopy, pt blood pressure is now 189/84 and heart rate 90, Dr. Conteh notified, MD placed new order for X1 hydralazine prior to sending pt to Endo.
--- NOTE | 2024-09-27 18:00 | SUR.PHASEI ---
pt drowsy but arouses to verbal commands, breathing unlabored, report from Deneen FOSTER
--- NOTE | 2024-09-27 19:02 | SUR.PHASEI ---
pt drowsy but arouses to verbal commands, breathing unlabored, report called to Swapnil FOSTER, pt meets discharge criteria for PACU, pt transferred to room at this time.
[2024-09-27] MEDS: ATORVASTATIN CALCIUM 20 MG TABLET PO (20:52)
[2024-09-27] MEDS: amLODIPine BESYLATE 5 MG TABLET PO (20:55)
[2024-09-27] MEDS: HYDROcodone/APAP 5/325 TABLET 1 TAB PO (23:40)
[2024-09-28] VITALS (7 sets, daily range): BP systolic 117–157; BP diastolic 63–85; PULSE 86–97; RESP 16–20; TEMP 36.3–36.7; O2SAT 91–96
[2024-09-28 06:08] LABS: Basophils % (Auto) 0 % (0-2.5); Eosinophils # (Auto) 0.1 Thou/mm3 (0.0-0.5); Eosinophils % (Auto) 1 % (0-10); Hematocrit 37.5 % (36.0-46.0); Hemoglobin 12.7 g/dL (12.0-16.0); Immature Granulocytes % (Auto) 0 % (0-0); Immature Granulocytes Auto 0.03 Thou/mm3 (0.00-0.00); Lymphocytes % (Auto) 14 % (10-50); Mean Corpuscular HGB Conc 33.9 g/dl (31.0-37.0); Mean Corpuscular Hemoglobin 29.3 pg (25.0-35.0); Mean Corpuscular Volume 87 fL (80-100); Monocytes # (Auto) 0.7 Thou/mm3 (0.0-0.8); Monocytes % (Auto) 9 % (0-12); Neutrophils # (Auto) 5.8 Thou/mm3 (1.8-7.7); Neutrophils % (Auto) 76 % (37-80); Nucleated Red Blood Cell % 0 /100 WBC (0); Platelet Count 191 Thou/mm3 (140-440); RDW Standard Deviation 41.5 fL (36.4-46.3); Red Blood Count 4.33 Miln/mm3 (4.00-5.20); White Blood Count 7.7 Thou/mm3 (3.6-11.0)
[2024-09-28 06:28] LABS: Partial Thromboplastin Time 26.1 Seconds (22.0-36.0)
[2024-09-28 06:57] LABS: Sodium 142 mMol/L (136-145)
[2024-09-28 06:58] LABS: Alanine Aminotransferase 11 U/L (10-49); Albumin, Serum 3.8 gm/dL (3.4-4.8); Albumin/Globulin Ratio 1.5 (1.2-2.2); Alkaline Phosphatase 75 U/L (46-116); Anion Gap 10 (7-16); Aspartate Amino Transferase 14 U/L (0-34); BUN/Creatinine Ratio 16 Ratio (12-20); Bilirubin,Total 0.7 mg/dL (0.3-1.2); Blood Urea Nitrogen 11 mg/dL (9-23); Calcium 8.6 mg/dL (8.3-10.6); Calcium (Corrected) 8.8 mg/dL (8.5-10.1); Carbon Dioxide 26.5 mMol/L (20.0-31.0); Chloride 106 mMol/L (98-107); Creatinine (Component) 0.7 mg/dL (0.6-1.3); Estimated Creatinine Clearance 76.3 mL/min (>60); Globulin 2.5 gm/dL (2.3-3.5); Glucose 125 mg/dL (74-106); Osmolality,Calculated 283 (275-295); Phosphorous 3.6 mg/dL (2.4-5.1); Potassium 3.8 mMol/L (3.4-5.1); Total Protein 6.3 gm/dL (5.7-8.2); eGFR > 60 See Note
[2024-09-28] MEDS: amLODIPine BESYLATE 5 MG TABLET PO (08:07)
[2024-09-28] MEDS: Lisinopril 20 MG TABLET 40 MG PO (08:07)
[2024-09-28] MEDS: PANTOPRAZOLE INJ 40 MG VIAL IV (08:07)
--- NOTE | 2024-09-28 10:16 | PC.SS ---
SS update: pending surgery consult.
[2024-09-28] MEDS: POTASSIUM CHLORIDE 20 mEq TABCR PO (10:27)
--- NOTE | 2024-09-28 12:43 | ESPR_ITS ---
<Statement entered by Nathan Conteh MD - 09/28/24 15:17> Patient was seen and examined at the bedside this morning. Patient's colonoscopy showed multiple polyps and large mass in the sigmoid colon for which GI specialist recommended consulting surgery, Dr Cole. He recommended to continue clear liquid diet for now. Although patient's UA showed pyuria and urine culture showed E. coli growth however patient denied any symptoms therefore no antibiotic coverage was given. Patient's daughter was updated regarding the colonoscopy results. Will likely continue with current management and await on ultrasound-guided biopsy results for a great lymph node ordered by oncologist Dr. Meredith. Patient's blood pressure improved with antihypertensives. Labs are unremarkable. All labs and orders were reviewed. I saw and examined the patient, and I agree with current management stated by Dr Razia MD,PGY1. Plan of care was discussed with the attending physician and resident physician. Disclaimer: Despite multiple revisions, due to the dictation software being used, the document bellow may not be free of grammatical errors including phonetic/typographic errors. However, this does not deter from our commitment to providing health care in the patient's best interest in mind. Dr. Yady MD, PGY 2 Documentation for date of: 09/28/24 Subjective Subjective Interval history: No overnight events reported for patient . Colonoscopy overnight with Dr. Tyler reported hemorrhoids, diverticulosis, polyps, and partially obstructing tumor in the sigmoid colon. Consult made for Dr. Cole. Patient updated by doctor Cole and Internal medicine team. Plan for resection for . NPO at midnight Friday for surgery on . Exam Vital Signs Temp Pulse Resp BP Pulse Ox O2 Del Method O2 Flow Rate 97.3 F 86 16 150/74 H 96 Room Air 3 09/28/24 11:43 09/28/24 11:43 09/28/24 11:43 09/28/24 11:43 09/28/24 11:43 09/28/24 11:43 09/27/24 17:50 Narrative Exam General Appearance: Alert & Oriented X3, well-nourished female who is lying in bed in mild distress, abnormal tissue grwoth noted on right breast exam. HEENT: Skull symmetrical and atraumatic. Conjunctivae pink and moist. Pupils equal, round, reactive to light and accommodation (PERRL). External ear without lesion or discharge. Straight, nares patient, mucosa pink, no discharge. No thyroid nodule appreciated. Cardio: Normal Rate and Rhythm with S1 and S2 heart sounds. No murmurs or extra heart sounds auscultated. No bruits on carotid auscultation. No peripheral edema or cyanosis. Lungs: Symmetric with good expansion. Chest and back non-tender. Breath sounds vesicular without crackles, wheezing or rhonchi Abdomen: diffuse tender, Non-distended, Normal Reactive Bowel Sounds, increased hard abnormal tissue growth subqutaneous noted on physical exam Neuro: Alert, cooperative, oriented to person, place, and time. Speech clear. CN grossly intact. Upper motor strength 5/5 and Lower motor strength 5/5. Sensation intact. Objective Labs 09/29/24 04:30 09/29/24 04:30 Labs: Laboratory Results - last 24 hr 09/27/24 09/28/24 04:42 04:55 WBC 7.7 RBC 4.33 Hgb 12.7 Hct 37.5 MCV 87 MCH 29.3 MCHC 33.9 RDW Std Deviation 41.5 Plt Count 191 D Neut % (Auto) 76 Lymph % (Auto) 14 [place] % (Auto) 9 Eos % (Auto) 1 Baso % (Auto) 0 Neut # (Auto) 5.8 Lymph # (Auto) 1.0 [place] # (Auto) 0.7 Eos # (Auto) 0.1 Baso # (Auto) 0.0 Immature Gran # (Auto) 0.03 H Absolute Nucleated RBC 0.00 Immature Gran % 0 Nucleated RBC % 0 PT 11.1 11.0 INR 1.0 1.0 APTT 27.6 26.1 Sodium 142 Potassium 3.8 Chloride 106 Carbon Dioxide 26.5 Anion Gap 10 BUN 11 Creatinine 0.7 Estim Creat Clear Calc 76.3 eGFR > 60 BUN/Creatinine Ratio 16 Glucose 125 H Calculated Osmolality 283 Calcium 8.6 Corrected Calcium 8.8 Phosphorus 3.6 Magnesium 2.0 Total Bilirubin 0.7 AST 14 ALT 11 Alkaline Phosphatase 75 Total Protein 6.3 Albumin 3.8 D Globulin 2.5 Albumin/Globulin Ratio 1.5 Quality Measures Quality Measures none Advance care planning discussed with:: other Assessment & Plan Assessment Current Active Medications: Generic Name Dose Route Start Last Admin Trade Name Freq PRN Reason Stop Dose Admin Acetaminophen 650 mg 09/26/24 15:35 Acetaminophen 325 Mg Tablet PO 10/26/24 15:34 Q6H PRN Mild Pain 1-3 or Fever >100.4 Hydrocodone Bitart/Acetaminophen 1 tab 09/26/24 15:35 09/27/24 23:40 Hydrocodone/Apap 5/325 Tablet PO 10/01/24 15:34 1 tab Q4HR PRN Administration PAIN SCALE 4-10(Mod-Sev Amlodipine Besylate 5 mg 09/27/24 21:00 09/28/24 08:07 Amlodipine Besylate 5 Mg Tablet PO 10/27/24 20:59 5 mg QDAY ZACARIAS Administration Atorvastatin Calcium 20 mg 09/27/24 21:00 09/27/24 20:52 Atorvastatin Calcium 20 Mg Tablet PO 10/27/24 20:59 20 mg HS ZACARIAS Administration Heparin Sodium (Porcine) 5,000 unit 09/26/24 21:00 09/27/24 08:28 Heparin Sod Inj 5000 Unit/Ml Vial SC 10/10/24 20:59 Not Given Q12HR ZACARIAS Hydralazine HCl 10 mg 09/26/24 17:28 09/27/24 16:12 Hydralazine Inj 20 Mg/Ml Vial IV 10/26/24 17:27 10 mg Q4HR PRN Administration hypertension Hydroxyzine HCl 10 mg 09/26/24 17:17 Hydroxyzine Hcl 10 Mg Tablet PO 10/26/24 17:16 Q6HR PRN ANXIETY Lisinopril 40 mg 09/28/24 09:00 09/28/24 08:07 Lisinopril 20 Mg Tablet PO 10/28/24 08:59 40 mg QDAY ZACARIAS Administration Melatonin 3 mg 09/27/24 21:00 Melatonin 3 Mg Tablet PO 10/26/24 20:59 HS PRN Sleep Morphine Sulfate 1 mg 09/26/24 15:52 Morphine Sulf Inj 10 Mg/Ml Vial IVP 10/01/24 15:51 Q4HR PRN Pain 7-10 Ondansetron HCl 4 mg 09/26/24 15:35 Ondansetron Inj 2 Mg/Ml Inj 2 Ml IV 10/26/24 15:34 Q6H PRN NAUSEA OR VOMITING Protocol Pantoprazole Sodium 40 mg 09/26/24 16:00 09/28/24 08:07 Pantoprazole Inj 40 Mg Vial IV 10/26/24 15:59 40 mg QDAY ZACARIAS Administration Plan Patient is a 74-year-old female with limited past medical history new diagnosis of hypertension who was admitted on 09/26/2024 for intractable abdominal pain and found to have pathologic right axillary lymphadenopathy, abdominal wall, numerous mets to pulmonary nodular masses, splenic lesions and obstructing sigmoid colon. #Sigmoid Mass colonoscopy #Post US guided Biopsy of Axillary lymph node biopsy #S/P Polypectomy due to multiple polyps in colon,colonoscopy #?Advanced Malignancy On to have increased abdominal pain with diffuse tenderness and on physical exam noted to have a abnormal tissue growth subcutaneous, not soft not mobile. Noted about 2 weeks ago as well as a breast abnormal subcutaneous tissue growth. On CT chest abdomen several masses were noted. Included but not limited to a 38 x 32 solid mass in the sigmoid colon, metastasis to soft tissue of against abdominal wall, osteolytic llesions of the bone, right axial lymphadenopathy, right alveolar right breast mass, splenic lesions, and mass like pulmonary nodules. Given findings on CT malignancy cannot be ruled out. Possible history of cervical cancer per history from patient. Surgery with Dr. Cole on . DDx: Pancreatitis less likely given Lipase 36 vs less likely gastroporesis from diabetes Mellitus as patient has not follow up with a pcp. Diagnostics: CA 15, AFP, and CEA within limits. CT: Pathologic right axillary lymphadenopathy; 16mm retroareolar right breast mass; Thickening of the right chest wall measuring up to 16 mm; Recommend bilateral breast sonography diagnostic mammography follow-up; Numerous metastatic pulmonary nodular masses; 16 mm solid splenic lesion; Peritoneal soft tissue tumor nodules; 30 x 32 mm solid mass in the sigmoid colon, recommend colonoscopy to confirm malignant neoplasm of the sigmoid colon; Subcutaneous soft tissue metastatic masses as above; Osteolytic lesion L5, right iliac bone; Consider whole body PET CT scan follow-up Plan -Colonoscopy scheduled for tomorrow -Axillary Biopsy -Pending CA-19 -Protonix 40 IV daily -Pain Management (Acetaminophe, Noroc, and Morphine) -CBC CMP -Gastroenterology consulted, Dr. Tyler, appreciate recommendations -Radiation oncology consulted, Dr. Meredith, appreciate recommendations -General Surgery Consulted, Dr. Cole, appreciate recommendations #Hypertension #Hypertension urgency, improved. #Hyperlipidemia Possible history of hypertension, but patient denied any medication on board for that. Utox negative. A1c 6.3. ASCVD Risk Scole 32.1% Risk of Cardiovascular event (specially given elevated systolic blood pressure). Moderate to high intensitity statins. Start patient at moderate with 20 mg HS. Plan -Lisinopril 40 mg daily -Amlodipine 10 mg Qday -Atorvastatin 20 mg HS #Asymptomatic Cystitis No treatment as patient is asymtomatic Plan -Monitor Health Maintenance: Disp: Pt is currently admitted to floors for further management of abdominal pain , awaiting colonoscopy and axillary biopsy. FEN: Clear Liquid Diet, advance to cardiac diet, plan for surgery for . DVT: compression device given single episode of hematochezia. GI: protonix 40 mg IV Code: Full Code - The patient's plan was discussed with attending Dr. Sorensen and senior residents Dr. Yady Randle MD PGY1 Internal Medicine Attending Provider Attestation/Addendum I attest that I was physically present for the evaluation, physical examination, lab and imaging review of the patient with the residents. I discussed the case with the residents and agree with the findings and plans of care as documented above. Mina Sorensen MD
--- NOTE | 2024-09-28 14:49 | ESCONSULT_ITS ---
HPI Consult details Consult date: 09/28/24 Reason for consultation narrative: Obstructing sigmoid mass History of present illness: 74-year-old obese female was admitted with abdominal pain. She was found to have multiple nodules including multiple pulmonary nodule, adrenal nodule, left hip subcutaneous nodule in the sigmoid mass. She denies having colonoscopy in the past. She denies history of blood per rectum, weight loss, changes in bowel habits or family history of colorectal cancer. She underwent colonoscopy that revealed a sigmoid mass suspicious for malignancy, pathology is pending. Review of Systems Constitutional Constitutional: Denies chills, Denies fever(s), Denies headache(s) and Denies weight loss ENT Ears, Nose, Mouth, and Throat: Denies headache(s) Cardiovascular Cardiovascular: Denies chest pain Respiratory Respiratory: Denies cough Gastrointestinal Gastrointestinal: Reports abdominal pain, Denies hematochezia and Denies vom iting Genitourinary Genitourinary: Denies difficulty voiding Neurologic Neurologic: Reports system reviewed and no additional complaints, except as documented, Reports as per HPI and Denies headache(s) Hematologic/Lymphatic Hematologic/Lymphatic: Denies easy bleeding and Denies easy bruising Past Medical History Surgical History OTHER SURGICAL HX: Tubal ligation Social History SMOKING STATUS: Never smoker SUBSTANCE USE: former substance user ALCOHOL: Current (Occasional) Meds Home Medications and Allergies Home Medications ?Medication ?Instructions ?Recorded ?Confirmed ?Type No Known Home Medications 09/26/24 09/26/24 History Allergies Allergy/AdvReac Type Severity Reaction Status Date / Time No Known Allergies Allergy Unverified 09/26/24 15:54 Exam Vital Signs Temp Pulse Resp BP Pulse Ox O2 Del Method O2 Flow Rate 97.3 F 86 16 150/74 H 96 Room Air 3 09/28/24 11:43 09/28/24 11:43 09/28/24 11:43 09/28/24 11:43 09/28/24 11:43 09/28/24 11:43 09/27/24 17:50 Constitutional Constitutional: no acute distress Routine Abdominal Exam Abdominal: Present soft and normoactive bowel sounds; Absent tenderness or distended Results Results: Laboratory Laboratory results: results reviewed Results: Imaging Imaging narrative: CT scan of chest, abdomen pelvis images reviewed, radiologist interpretation noted Assessment & Plan Problem List (1) Malignant neoplasm of sigmoid colon: Status: Acute Plan Had a lengthy discussion with the patient and her family. She likely has 2 distinct primary malignancies with metastasis (she likely has breast cancer with mets and she has colon cancer). Regarding sigmoid tumor, I will schedule her for exploratory laparotomy, possible sigmoid resection, possible colostomy on , if pathology is adenocarcinoma. Patient and family understand the risks benefits and alternatives to procedure and all their questions were answered. They voiced understanding and agreed to proceed.
[2024-09-28] MEDS: HYDROcodone/APAP 5/325 TABLET 1 TAB PO (19:32)
[2024-09-28] MEDS: ATORVASTATIN CALCIUM 20 MG TABLET PO (20:32)
--- NOTE | 2024-09-28 20:39 | PD.IMPROG ---
Documentation for date of: 09/28/24 Subjective Subjective Interval history: Patient is surgical consultation The mass/broad-based polyp in the sigmoid colon the distal end of which was tattooed may just be a large polyp with a broad base or may into be a carcinoma for which the biopsies are pending at the moment Endoscopically it appears to be a carcinoma surgical intervention Exam Vital Signs Temp Pulse Resp BP Pulse Ox O2 Del Method O2 Flow Rate 97.3 F 90 20 135/70 H 95 Room Air 3 09/28/24 20:00 09/28/24 20:00 09/28/24 20:00 09/28/24 20:00 09/28/24 20:00 09/28/24 20:00 09/28/24 16:00 Objective Labs 09/28/24 04:55 09/28/24 04:55 Labs: Laboratory Results - last 24 hr 09/28/24 04:55 WBC 7.7 RBC 4.33 Hgb 12.7 Hct 37.5 MCV 87 MCH 29.3 MCHC 33.9 RDW Std Deviation 41.5 Plt Count 191 D Neut % (Auto) 76 Lymph % (Auto) 14 [place] % (Auto) 9 Eos % (Auto) 1 Baso % (Auto) 0 Neut # (Auto) 5.8 Lymph # (Auto) 1.0 [place] # (Auto) 0.7 Eos # (Auto) 0.1 Baso # (Auto) 0.0 Immature Gran # (Auto) 0.03 H Absolute Nucleated RBC 0.00 Immature Gran % 0 Nucleated RBC % 0 PT 11.0 INR 1.0 APTT 26.1 Sodium 142 Potassium 3.8 Chloride 106 Carbon Dioxide 26.5 Anion Gap 10 BUN 11 Creatinine 0.7 Estim Creat Clear Calc 76.3 eGFR > 60 BUN/Creatinine Ratio 16 Glucose 125 H Calculated Osmolality 283 Calcium 8.6 Corrected Calcium 8.8 Phosphorus 3.6 Magnesium 2.0 Total Bilirubin 0.7 AST 14 ALT 11 Alkaline Phosphatase 75 Total Protein 6.3 Albumin 3.8 D Globulin 2.5 Albumin/Globulin Ratio 1.5 Impressions Impression: # Partially obstructing sigmoid colon mass Surgical intervention Appreciate surgical consultation Assessment & Plan A&P Narrative 1. Widespread malignancy involving right breast axilla lung bone, someone who rarely saw doctors over the years. 2. Solid mass in sigmoid colon awaiting colonoscopy and possible biopsy with Dr. Tyler. 3. Took the liberty of ordering a biopsy of right axillary node, due to high suspicion of adjacent breast cancer primary. Will follow. Time Spent With Patient Time: Total time spent is greater than 50% in coordination of care (as documented) at patient's floor/unit and/or counseling patient:
[2024-09-29] VITALS (8 sets, daily range): BP systolic 126–164; BP diastolic 54–74; PULSE 67–82; RESP 16–18; TEMP 36.1–36.4; O2SAT 95–96
[2024-09-29 06:10] LABS: Basophils % (Auto) 1 % (0-2.5); Eosinophils # (Auto) 0.2 Thou/mm3 (0.0-0.5); Eosinophils % (Auto) 3 % (0-10); Hematocrit 36.9 % (36.0-46.0); Hemoglobin 12.2 g/dL (12.0-16.0); Immature Granulocytes % (Auto) 0 % (0-0); Immature Granulocytes Auto 0.01 Thou/mm3 (0.00-0.00); Lymphocytes # (Auto) 1.5 Thou/mm3 (1.0-4.8); Lymphocytes % (Auto) 26 % (10-50); Mean Corpuscular HGB Conc 33.1 g/dl (31.0-37.0); Mean Corpuscular Hemoglobin 28.9 pg (25.0-35.0); Mean Corpuscular Volume 87 fL (80-100); Monocytes # (Auto) 0.7 Thou/mm3 (0.0-0.8); Monocytes % (Auto) 13 % (0-12); Neutrophils # (Auto) 3.2 Thou/mm3 (1.8-7.7); Neutrophils % (Auto) 57 % (37-80); Nucleated Red Blood Cell % 0 /100 WBC (0); Platelet Count 185 Thou/mm3 (140-440); RDW Standard Deviation 42.4 fL (36.4-46.3); Red Blood Count 4.22 Miln/mm3 (4.00-5.20); White Blood Count 5.6 Thou/mm3 (3.6-11.0)
[2024-09-29 06:51] LABS: Alanine Aminotransferase 13 U/L (10-49); Albumin, Serum 3.9 gm/dL (3.4-4.8); Albumin/Globulin Ratio 1.6 (1.2-2.2); Alkaline Phosphatase 72 U/L (46-116); Anion Gap 9 (7-16); Aspartate Amino Transferase 13 U/L (0-34); BUN/Creatinine Ratio 16 Ratio (12-20); Bilirubin,Total 0.7 mg/dL (0.3-1.2); Blood Urea Nitrogen 11 mg/dL (9-23); Calcium (Corrected) 9.1 mg/dL (8.5-10.1); Carbon Dioxide 25.4 mMol/L (20.0-31.0); Chloride 106 mMol/L (98-107); Creatinine (Component) 0.7 mg/dL (0.6-1.3); Estimated Creatinine Clearance 76.3 mL/min (>60); Globulin 2.5 gm/dL (2.3-3.5); Glucose 107 mg/dL (74-106); Magnesium 2.1 mg/dL (1.6-2.6); Osmolality,Calculated 278 (275-295); Potassium 3.6 mMol/L (3.4-5.1); Sodium 140 mMol/L (136-145); Total Protein 6.4 gm/dL (5.7-8.2); eGFR > 60 See Note
[2024-09-29] MEDS: amLODIPine BESYLATE 5 MG TABLET PO (09:05)
[2024-09-29] MEDS: Lisinopril 20 MG TABLET 40 MG PO (09:06)
[2024-09-29] MEDS: PANTOPRAZOLE INJ 40 MG VIAL IV (09:07)
--- NOTE | 2024-09-29 09:24 | PC.NURSE ---
Pt tearful and expressing fear over upcoming surgery. Allowed to express self, emotional support provided.
--- NOTE | 2024-09-29 10:13 | ESPR_ITS ---
Documentation for date of: 09/29/24 Subjective Subjective Interval history: Spoke with Dr. 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 Exam Vital Signs Temp Pulse Resp BP Pulse Ox O2 Del Method O2 Flow Rate 97 F 72 18 147/63 H 95 Room Air 3 09/29/24 07:55 09/29/24 09:06 09/29/24 07:55 09/29/24 09:06 09/29/24 07:55 09/29/24 07:55 09/28/24 16:00 Objective Labs 09/29/24 04:30 09/29/24 04:30 Labs: Laboratory Results - last 24 hr 09/29/24 04:30 WBC 5.6 RBC 4.22 Hgb 12.2 Hct 36.9 MCV 87 MCH 28.9 MCHC 33.1 RDW Std Deviation 42.4 Plt Count 185 Neut % (Auto) 57 Lymph % (Auto) 26 [place] % (Auto) 13 H Eos % (Auto) 3 Baso % (Auto) 1 Neut # (Auto) 3.2 Lymph # (Auto) 1.5 [place] # (Auto) 0.7 Eos # (Auto) 0.2 Baso # (Auto) 0.0 Immature Gran # (Auto) 0.01 H Absolute Nucleated RBC 0.00 Immature Gran % 0 Nucleated RBC % 0 Sodium 140 Potassium 3.6 Chloride 106 Carbon Dioxide 25.4 Anion Gap 9 BUN 11 Creatinine 0.7 Estim Creat Clear Calc 76.3 eGFR > 60 BUN/Creatinine Ratio 16 Glucose 107 H Calculated Osmolality 278 Calcium 9.0 Corrected Calcium 9.1 Phosphorus 4.0 Magnesium 2.1 Total Bilirubin 0.7 AST 13 ALT 13 Alkaline Phosphatase 72 Total Protein 6.4 Albumin 3.9 Globulin 2.5 Albumin/Globulin Ratio 1.6 Assessment & Plan A&P Narrative 1. Widespread malignancy involving right breast axilla lung bone, colon someone who rarely saw doctors over the years. 2. 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 3. Inform other physicians involved. Port placement for anticipated chemo will be needed. Time Spent With Patient Time: Total time spent is greater than 50% in coordination of care (as documented) at patient's floor/unit and/or counseling patient:
--- NOTE | 2024-09-29 11:22 | PC.NURSE ---
Dr. Cole in to see patient. Plan of care discussed.
--- NOTE | 2024-09-29 12:55 | PD.SURPROG ---
Documentation for date of: 09/29/24 Subjective Subjective Narrative: Patient is seen and examined. She is resting comfortably. Exam Vital Signs Temp Pulse Resp BP Pulse Ox O2 Del Method O2 Flow Rate 97 F 72 18 147/63 H 95 Room Air 3 09/29/24 07:55 09/29/24 09:06 09/29/24 07:55 09/29/24 09:06 09/29/24 07:55 09/29/24 07:55 09/28/24 16:00 Constitutional Constitutional: no acute distress Routine Abdominal Exam Abdominal: Present soft and normoactive bowel sounds; Absent tenderness or distended Assessment & Plan Assessment Additional comments: Biopsy results revealed B-cell lymphoma Plan Based on pathologic findings patient will not require sigmoid colectomy. Will schedule her for placement of a Port-A-Cath for administration of systemic chemotherapy. Risks include but not limited to infection, bleeding, pneumothorax, malfunctioning of the catheter discussed with the patient. Benefits alternatives explained to her, all her questions answered, she agreed and consented to proceed with the operation.
--- NOTE | 2024-09-29 14:18 | PC.SS ---
Rounding note: patient is pending placement of a Port-A-Cath for administration of chemotherapy. Dr. Viri petersen.
--- NOTE | 2024-09-29 14:48 | ESPR_ITS ---
<Statement entered by Nathan Conteh MD - 09/29/24 14:55> I saw and examined the patient, and I agree with current management stated by Dr Razia MD,PGY1. Plan of care was discussed with the attending physician and resident physician. Disclaimer: Despite multiple revisions, due to the dictation software being used, the document bellow may not be free of grammatical errors including phonetic/typographic errors. However, this does not deter from our commitment to providing health care in the patient's best interest in mind. Dr. Yady MD, PGY 2 Documentation for date of: 09/29/24 Subjective Subjective Interval history: No overnight events reported for patient. Patient was updated by IM team about right breast biopsy showing diffuse large B-cell lymphoma as noted by Dr. Meredith. Patient is scheduled for port a cath placement for systemic chemotherapy. N.p.o. tonight and INR/PT/PTT to be obtained. Patient has had family support at bedside. Exam Vital Signs Temp Pulse Resp BP Pulse Ox O2 Del Method O2 Flow Rate 97.0 F 76 17 143/64 H 95 Room Air 3 09/29/24 12:00 09/29/24 12:00 09/29/24 12:00 09/29/24 12:00 09/29/24 12:09/29/24 12:09/29/24 12:00 Narrative Exam General Appearance: Alert & Oriented X3, well-nourished female who is lying in bed in mild distress, abnormal tissue grwoth noted on right breast exam. HEENT: Skull symmetrical and atraumatic. Conjunctivae pink and moist. Pupils equal, round, reactive to light and accommodation (PERRL). External ear without lesion or discharge. Straight, nares patient, mucosa pink, no discharge. No thyroid nodule appreciated. Cardio: Normal Rate and Rhythm with S1 and S2 heart sounds. No murmurs or extra heart sounds auscultated. No bruits on carotid auscultation. No peripheral edema or cyanosis. Lungs: Symmetric with good expansion. Chest and back non-tender. Breath sounds vesicular without crackles, wheezing or rhonchi Abdomen: diffuse tender, Non-distended, Normal Reactive Bowel Sounds, increased hard abnormal tissue growth subqutaneous noted on physical exam Neuro: Alert, cooperative, oriented to person, place, and time. Speech clear. CN grossly intact. Upper motor strength 5/5 and Lower motor strength 5/5. Sensation intact. Objective Labs 09/30/24 04:34 09/30/24 04:34 Labs: Laboratory Results - last 24 hr 09/29/24 04:30 WBC 5.6 RBC 4.22 Hgb 12.2 Hct 36.9 MCV 87 MCH 28.9 MCHC 33.1 RDW Std Deviation 42.4 Plt Count 185 Neut % (Auto) 57 Lymph % (Auto) 26 [place] % (Auto) 13 H Eos % (Auto) 3 Baso % (Auto) 1 Neut # (Auto) 3.2 Lymph # (Auto) 1.5 [place] # (Auto) 0.7 Eos # (Auto) 0.2 Baso # (Auto) 0.0 Immature Gran # (Auto) 0.01 H Absolute Nucleated RBC 0.00 Immature Gran % 0 Nucleated RBC % 0 Sodium 140 Potassium 3.6 Chloride 106 Carbon Dioxide 25.4 Anion Gap 9 BUN 11 Creatinine 0.7 Estim Creat Clear Calc 76.3 eGFR > 60 BUN/Creatinine Ratio 16 Glucose 107 H Calculated Osmolality 278 Calcium 9.0 Corrected Calcium 9.1 Phosphorus 4.0 Magnesium 2.1 Total Bilirubin 0.7 AST 13 ALT 13 Alkaline Phosphatase 72 Total Protein 6.4 Albumin 3.9 Globulin 2.5 Albumin/Globulin Ratio 1.6 Quality Measures Quality Measures none Advance care planning discussed with:: other Assessment & Plan Assessment Current Active Medications: Generic Name Dose Route Start Last Admin Trade Name Freq PRN Reason Stop Dose Admin Acetaminophen 650 mg 09/26/24 15:35 Acetaminophen 325 Mg Tablet PO 10/26/24 15:34 Q6H PRN Mild Pain 1-3 or Fever >100.4 Hydrocodone Bitart/Acetaminophen 1 tab 09/26/24 15:35 09/28/24 19:32 Hydrocodone/Apap 5/325 Tablet PO 10/01/24 15:34 1 tab Q4HR PRN Administration PAIN SCALE 4-10(Mod-Sev Amlodipine Besylate 5 mg 09/27/24 21:00 09/29/24 09:05 Amlodipine Besylate 5 Mg Tablet PO 10/27/24 20:59 5 mg QDAY ZACARIAS Administration Atorvastatin Calcium 20 mg 09/27/24 21:00 09/28/24 20:32 Atorvastatin Calcium 20 Mg Tablet PO 10/27/24 20:59 20 mg HS ZACARIAS Administration Heparin Sodium (Porcine) 5,000 unit 09/26/24 21:00 09/27/24 08:28 Heparin Sod Inj 5000 Unit/Ml Vial SC 10/10/24 20:59 Not Given Q12HR ZACARIAS Hydralazine HCl 10 mg 09/26/24 17:28 09/27/24 16:12 Hydralazine Inj 20 Mg/Ml Vial IV 10/26/24 17:27 10 mg Q4HR PRN Administration hypertension Hydroxyzine HCl 10 mg 09/26/24 17:17 Hydroxyzine Hcl 10 Mg Tablet PO 10/26/24 17:16 Q6HR PRN ANXIETY Lisinopril 40 mg 09/28/24 09:00 09/29/24 09:06 Lisinopril 20 Mg Tablet PO 10/28/24 08:59 40 mg QDAY ZACARIAS Administration Melatonin 3 mg 09/27/24 21:00 Melatonin 3 Mg Tablet PO 10/26/24 20:59 HS PRN Sleep Morphine Sulfate 1 mg 09/26/24 15:52 Morphine Sulf Inj 10 Mg/Ml Vial IVP 10/01/24 15:51 Q4HR PRN Pain 7-10 Ondansetron HCl 4 mg 09/26/24 15:35 Ondansetron Inj 2 Mg/Ml Inj 2 Ml IV 10/26/24 15:34 Q6H PRN NAUSEA OR VOMITING Protocol Pantoprazole Sodium 40 mg 09/26/24 16:00 09/29/24 09:07 Pantoprazole Inj 40 Mg Vial IV 10/26/24 15:59 40 mg QDAY ZACARIAS Administration Plan Patient is a 74-year-old female with limited past medical history new diagnosis of hypertension who was admitted on 09/26/2024 for intractable abdominal pain and found to have pathologic right axillary lymphadenopathy, abdominal wall, numerous mets to pulmonary nodular masses, splenic lesions and obstructing sigmoid colon. #Diffuse Large B-Cell Lymphoma #Widespread Malignancy with Mets to R. Breast, Lung, Bones, and colon #Sigmoid Mass colonoscopy #Post US guided Biopsy of Axillary lymph node biopsy #S/P Polypectomy due to multiple polyps in colon,colonoscopy On to have increased abdominal pain with diffuse tenderness and on physical exam noted to have a abnormal tissue growth subcutaneous, not soft not mobile. Noted about 2 weeks ago as well as a breast abnormal subcutaneous tissue growth. On CT chest abdomen several masses were noted. Included but not limited to a 38 x 32 solid mass in the sigmoid colon, metastasis to soft tissue of against abdominal wall, osteolytic llesions of the bone, right axial lymphadenopathy, right alveolar right breast mass, splenic lesions, and mass like pulmonary nodules. Given findings on CT malignancy cannot be ruled out. Possible history of cervical cancer per history from patient. Port Cath insertion for systemic chem. Colon and right breast biopsy noted for B-Cell Lymphoma DDx: Pancreatitis less likely given Lipase 36 vs less likely gastroporesis from diabetes Mellitus as patient has not follow up with a pcp. Diagnostics: CA 15, AFP, and CEA within limits. CT: Pathologic right axillary lymphadenopathy; 16mm retroareolar right breast mass; Thickening of the right chest wall measuring up to 16 mm; Recommend bilateral breast sonography diagnostic mammography follow-up; Numerous metastatic pulmonary nodular masses; 16 mm solid splenic lesion; Peritoneal soft tissue tumor nodules; 30 x 32 mm solid mass in the sigmoid colon, recommend colonoscopy to confirm malignant neoplasm of the sigmoid colon; Subcutaneous soft tissue metastatic masses as above; Osteolytic lesion L5, right iliac bone; Consider whole body PET CT scan follow-up Plan -Port-A-Cath insertion for tomorrow -NPO after midnight -Pending CA-19 -Urine Acid, INR, PTT, LDH, CMP CBC -Protonix 40 IV daily -Pain Management (Acetaminophe, Noroc, and Morphine) -Gastroenterology consulted, Dr. Tyler, appreciate recommendations -Radiation oncology consulted, Dr. Meredith, appreciate recommendations -General Surgery Consulted, Dr. Cole, appreciate recommendations #Hypertension #Hypertension urgency, improved. #Hyperlipidemia Possible history of hypertension, but patient denied any medication on board for that. Utox negative. A1c 6.3. ASCVD Risk Scole 32.1% Risk of Cardiovascular event (specially given elevated systolic blood pressure). Moderate to high intensitity statins. Start patient at moderate with 20 mg HS. Plan -Lisinopril 40 mg daily -Amlodipine 10 mg Qday -Atorvastatin 20 mg HS -Hydralazine PRN #Asymptomatic Cystitis No treatment as patient is asymtomatic Plan -Monitor Health Maintenance: Disp: Pt is currently admitted to floors for further management of abdominal pain , awaiting Port-Cath FEN: NPO after midnight DVT: compression device & Port-A-Cath w/ Dr. Cole GI: protonix 40 mg IV Code: Full Code - The patient's plan was discussed with attending Dr. Stearns and senior residents Dr. Yady Randle MD PGY1 Internal Medicine Attending Provider Attestation/Addendum I have examined the patient, reviewed labs and imaging findings, discussed the case with the resident(s), and reviewed entered orders. I agree with the plan of care as outlined in this note, with these additional summaries/recommendations: Patient seen at bedside. No acute overnight events. Discussed biopsy findings with patient and family. Biopsy revealed diffuse B-cell lymphoma. General surgery following and patient will go for Port-A-Cath tomorrow morning and likely discharge in the next [address] Stearns
[2024-09-29] MEDS: HYDROcodone/APAP 5/325 TABLET 1 TAB PO (14:49)
--- NOTE | 2024-09-29 21:02 | ESPR_ITS ---
Documentation for date of: 09/29/24 Subjective Subjective Interval history: Biopsy from the left colonic mass is a lymphoma which is a large cell lymphoma Call Dr. Cole in the surgery for tomorrow canceled Recommend oncology consultation Exam Vital Signs Temp Pulse Resp BP Pulse Ox O2 Del Method O2 Flow Rate 97.5 F 72 17 161/72 H 95 Room Air 3 09/29/24 16:00 09/29/24 16:00 09/29/24 16:00 09/29/24 16:00 09/29/24 16:00 09/29/24 16:00 09/29/24 12:00 Objective Labs 09/29/24 04:30 09/29/24 04:30 Labs: Laboratory Results - last 24 hr 09/29/24 04:30 WBC 5.6 RBC 4.22 Hgb 12.2 Hct 36.9 MCV 87 MCH 28.9 MCHC 33.1 RDW Std Deviation 42.4 Plt Count 185 Neut % (Auto) 57 Lymph % (Auto) 26 [place] % (Auto) 13 H Eos % (Auto) 3 Baso % (Auto) 1 Neut # (Auto) 3.2 Lymph # (Auto) 1.5 [place] # (Auto) 0.7 Eos # (Auto) 0.2 Baso # (Auto) 0.0 Immature Gran # (Auto) 0.01 H Absolute Nucleated RBC 0.00 Immature Gran % 0 Nucleated RBC % 0 Sodium 140 Potassium 3.6 Chloride 106 Carbon Dioxide 25.4 Anion Gap 9 BUN 11 Creatinine 0.7 Estim Creat Clear Calc 76.3 eGFR > 60 BUN/Creatinine Ratio 16 Glucose 107 H Calculated Osmolality 278 Calcium 9.0 Corrected Calcium 9.1 Phosphorus 4.0 Magnesium 2.1 Total Bilirubin 0.7 AST 13 ALT 13 Alkaline Phosphatase 72 Total Protein 6.4 Albumin 3.9 Globulin 2.5 Albumin/Globulin Ratio 1.6 Impressions Impression: # Lymphoma large cell left colon Cancer surgical intervention Oncology consultation Assessment & Plan A&P Narrative 1. Widespread malignancy involving right breast axilla lung bone, colon someone who rarely saw doctors over the years. 2. 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 3. Inform other physicians involved. Port placement for anticipated chemo will be needed. Time Spent With Patient Time: Total time spent is greater than 50% in coordination of care (as documented) at patient's floor/unit and/or counseling patient:
[2024-09-29] MEDS: ATORVASTATIN CALCIUM 20 MG TABLET PO (21:28)
--- NOTE | 2024-09-29 23:53 | PC.NURSE ---
called Dr. Yates regarding patient's BP of 160/69, HR 72. last two sets of vitals has the SBP in the 160s. Patient is asymptomatic, no c/o pain at this time, patient has PRN hydralazine but current BP does not meet parameters. No new orders received at this time.
[2024-09-30] VITALS (14 sets, daily range): BP systolic 117–160; BP diastolic 61–86; PULSE 63–85; RESP 16–20; TEMP 35.6–37; O2SAT 93–96
[2024-09-30 06:20] LABS: Basophils % (Auto) 0 % (0-2.5); Eosinophils # (Auto) 0.3 Thou/mm3 (0.0-0.5); Eosinophils % (Auto) 4 % (0-10); Hematocrit 36.8 % (36.0-46.0); Hemoglobin 12.1 g/dL (12.0-16.0); Immature Granulocytes % (Auto) 0 % (0-0); Immature Granulocytes Auto 0.03 Thou/mm3 (0.00-0.00); Lymphocytes # (Auto) 1.2 Thou/mm3 (1.0-4.8); Lymphocytes % (Auto) 17 % (10-50); Mean Corpuscular HGB Conc 32.9 g/dl (31.0-37.0); Mean Corpuscular Hemoglobin 28.9 pg (25.0-35.0); Mean Corpuscular Volume 88 fL (80-100); Monocytes # (Auto) 0.9 Thou/mm3 (0.0-0.8); Monocytes % (Auto) 13 % (0-12); Neutrophils # (Auto) 4.4 Thou/mm3 (1.8-7.7); Neutrophils % (Auto) 65 % (37-80); Nucleated Red Blood Cell % 0 /100 WBC (0); Platelet Count 210 Thou/mm3 (140-440); RDW Standard Deviation 41.9 fL (36.4-46.3); Red Blood Count 4.18 Miln/mm3 (4.00-5.20); White Blood Count 6.7 Thou/mm3 (3.6-11.0)
[2024-09-30 06:26] LABS: Partial Thromboplastin Time 26.3 Seconds (22.0-36.0); Prothrombin Time 10.5 Seconds (9.0-12.2)
[2024-09-30 06:38] LABS: Alanine Aminotransferase 17 U/L (10-49); Albumin/Globulin Ratio 1.7 (1.2-2.2); Alkaline Phosphatase 79 U/L (46-116); Anion Gap 10 (7-16); Aspartate Amino Transferase 18 U/L (0-34); BUN/Creatinine Ratio 26 Ratio (12-20); Bilirubin,Total 0.4 mg/dL (0.3-1.2); Blood Urea Nitrogen 18 mg/dL (9-23); Calcium 8.9 mg/dL (8.3-10.6); Calcium (Corrected) 8.9 mg/dL (8.5-10.1); Carbon Dioxide 26.5 mMol/L (20.0-31.0); Chloride 104 mMol/L (98-107); Creatinine (Component) 0.7 mg/dL (0.6-1.3); Estimated Creatinine Clearance 76.3 mL/min (>60); Globulin 2.3 gm/dL (2.3-3.5); Glucose 133 mg/dL (74-106); LDH (Lactate Dehydrogenase) 280 U/L (120-246); Magnesium 2.1 mg/dL (1.6-2.6); Osmolality,Calculated 283 (275-295); Phosphorous 3.4 mg/dL (2.4-5.1); Potassium 4.1 mMol/L (3.4-5.1); Sodium 140 mMol/L (136-145); Total Protein 6.3 gm/dL (5.7-8.2); Uric Acid 6.2 mg/dL (3.1-7.8); eGFR > 60 See Note
[2024-09-30 06:44] LABS: CA 19-9 Antigen* 3 U/mL (<34)
--- NOTE | 2024-09-30 07:59 | ESPR_ITS ---
Documentation for date of: 09/30/24 Subjective Subjective Interval history: Patient with diffuse large B-cell lymphoma with high Ki-67 of 70 to 80%. Involving right breast sigmoid colon by biopsy and involving chest and bony sites. Port scheduled for chemotherapy. Labs shows elevated LDH but uric acid normal along with potassium and phosphorus. Exam Vital Signs Temp Pulse Resp BP Pulse Ox O2 Del Method O2 Flow Rate 98.6 F 79 17 149/61 H 95 Room Air 3 09/30/24 04:00 09/30/24 04:00 09/30/24 04:00 09/30/24 04:00 09/30/24 04:00 09/30/24 04:00 09/29/24 12:00 Narrative Exam Patient appears well and comfortable this a.m. Objective Labs 09/30/24 04:34 09/30/24 04:34 Labs: Laboratory Results - last 24 hr 09/26/24 09/30/24 10:25 04:34 WBC 6.7 RBC 4.18 Hgb 12.1 Hct 36.8 MCV 88 MCH 28.9 MCHC 32.9 RDW Std Deviation 41.9 Plt Count 210 Neut % (Auto) 65 Lymph % (Auto) 17 [place] % (Auto) 13 H Eos % (Auto) 4 Baso % (Auto) 0 Neut # (Auto) 4.4 Lymph # (Auto) 1.2 [place] # (Auto) 0.9 H Eos # (Auto) 0.3 Baso # (Auto) 0.0 Immature Gran # (Auto) 0.03 H Absolute Nucleated RBC 0.00 Immature Gran % 0 Nucleated RBC % 0 PT 10.5 INR 1.0 APTT 26.3 Sodium 140 Potassium 4.1 D Chloride 104 Carbon Dioxide 26.5 Anion Gap 10 BUN 18 Creatinine 0.7 Estim Creat Clear Calc 76.3 eGFR > 60 BUN/Creatinine Ratio 26 H Glucose 133 H Calculated Osmolality 283 Uric Acid 6.2 Calcium 8.9 Corrected Calcium 8.9 Phosphorus 3.4 Magnesium 2.1 Total Bilirubin 0.4 AST 18 ALT 17 Alkaline Phosphatase 79 Lactate Dehydrogenase 280 H Total Protein 6.3 Albumin 4.0 Globulin 2.3 Albumin/Globulin Ratio 1.7 CA 19-9 Antigen 3 Assessment & Plan A&P Narrative 1. Widespread malignancy involving right breast axilla lung bone, colon this appears aggressive with Ki-67 moderately high with biopsy from right breast and colon site revealing diffuse large B-cell lymphoma. 2. This appears aggressive with Ki-67 moderately high, and FISH panel for high- grade lymphoma pending. 3. Patient's renal function potassium phosphorus and uric acid are unremarkable so uric acid lowering agents to prevent tumor lysis syndrome can be delayed until chemo started. 4. Shall see patient upon discharge, order PET for staging, introduce patient to Dr. Mclean medical oncologist for chemotherapy. Time Spent With Patient Time: Total time spent is greater than 50% in coordination of care (as documented) at patient's floor/unit and/or counseling patient:
[2024-09-30] MEDS: Lisinopril 20 MG TABLET 40 MG PO (08:36)
[2024-09-30] MEDS: amLODIPine BESYLATE 5 MG TABLET PO (08:37)
[2024-09-30] MEDS: PANTOPRAZOLE INJ 40 MG VIAL IV (08:38)
--- NOTE | 2024-09-30 12:00 | XR_ITS ---
Examination: AP chest 4 views Technique and dates AP portable supine chest single view, September 30, 2024 1214 hours AP chest portable supine single view, September 30, 2024 1226 hours AP chest portable supine September 30, 2024 12:27 PM AP portable chest supine September 30, 2024 12:26 PM INDICATIONS: Port-A-Cath insertion today FINDINGS: Initial Port-A-Cath line projects in the right ventricle Final Port-A-Cath film shows satisfactory position Port-A-Cath tip superior vena cava No pneumothorax IMPRESSION: Satisfactory position Port-A-Cath line
--- NOTE | 2024-09-30 12:52 | SUR.PHASEI ---
1252 Patient arrived to recovery resting comfortably in [facility], on oxygen 10L via oxy mask with an oral airway in place, breathing unlabored, vital signs stable, dressing intact to upper right chest x2; dermabond, gauze, tegaderm, no bleeding noted, lung sounds clear upon auscultation, bilateral radial pulses present when palpated, report received from Viridiana FOSTER and Dr. Ackerman
--- NOTE | 2024-09-30 13:04 | PD.SUROPNT ---
Date of Procedure 09/30/24 Pre Op Diagnosis Compression of vein B-cell lymphoma Post Op Diagnosis Compression of vein B-cell lymphoma Procedure Port-A-Cath placement in the right internal jugular vein Findings No evidence of pneumothorax, and tip of the catheter in superior vena cava Procedure Description The patient was brought into the operating room in supine position. After administration of general endotracheal anesthesia care, the right upper chest and neck prepped and draped in standard surgical manner. The infraclavicular region and right neck anesthetized with 0.5% Marcaine. Right internal jugular vein was cannulated in first attempt and guidewire was placed. The needle was removed. The placement of guidewire was confirmed on an x-ray. Inferior to the right clavicle, an approximate 3 cm incision was made. Over the inferior aspects of incision, a pocket was created to accommodate the port aspects of the Port-A-Cath. Once this was done, dilator and introducer sheath placed over the guidewire. The guidewire and dilator were removed. Using a tunneling device the catheter was tunneled between the right neck insertion site of the guidewire and right upper chest incision. The catheter was placed through the introducer sheath and introducer sheath was then removed. The catheter was cut to an appropriate length and was connected to the port. Connector was tightened. Blood was being aspirated through the port easily, was flushed with heparinized saline. Once again the appropriate placement of the catheter was confirmed with an x-ray. Hemostasis was adequate and satisfactory. Subcutaneous tissue was closed with interrupted suture using 3-0 Vicryl. The skin was closed with 4-0 Monocryl in subcuticular fashion. The port was then accessed through the skin. Blood was being aspirated through the port easily, was flushed with heparinized saline. The patient tolerated the procedure well.she was extubated, was breathing spontaneously and without difficulty, was transferred to the postanesthesia care in stable condition. Anesthesia GETA and local Pathology / specimen None Estimated Blood Loss 5 Condition Stable Disposition PACU Surgeon Marin Cole MD Surgical Staff Operation Date: 09/30/24 14:15 Case Staff Anesthesiologist: Branden Ackerman
--- NOTE | 2024-09-30 13:40 | SUR.PHASEI ---
1336 Report given to Moriah FOSTER, patient meets discharge criteria from recovery, awake and alert, breathing unlabored, on oxygen 2L via nasal cannula, breathing unlabored, vital signs stable, denies pain to incision site, dressing intact; no bleeding noted, patient eating ice chips, tolerating well 1340 Patient transported via gurney to room 367 without incident.
[2024-09-30] MEDS: ACETAMINOPHEN IVPB 1,000 MG/100 ML VIAL 250 MG IV ×2 (13:58→17:24)
--- NOTE | 2024-09-30 15:28 | ESPR_ITS ---
Documentation for date of: 09/30/24 Subjective Subjective Interval history: Patient is a 74-year-old female with a limited past medical history of hypertension nonadherent to medication and diagnosed with diffuse large B-cell lymphoma as confirmed by breast biopsy and colon biopsy taken from a polyp on the sigmoid region. No overnight events reported for patient. Patient was n.p.o. for Port-A-Cath procedure with Dr Cole. After procedure patient continued to have pain and was unable to fill prescription medication at the pharmacy in time. Patient will be staying 1 more night for pain management. Pain 10 out of 10 prior to IV Tylenol. Patient understands she needs to follow out patient with Dr. Meredith, [facility] oncologist[facility] for [facility] treatment. Exam Vital Signs Temp Pulse Resp BP Pulse Ox O2 Del Method O2 Flow Rate 96.0 F L 74 18 151/69 H 95 Room Air 2 09/30/24 14:00 09/30/24 14:00 09/30/24 14:00 09/30/24 14:00 09/30/24 14:00 09/30/24 14:00 09/30/24 13:22 Narrative Exam General Appearance: Alert & Oriented X3, well-nourished female who is lying in bed in mild discomfort after Port-A-Cath procedure. HEENT: Skull symmetrical and atraumatic. Conjunctivae pink and moist. Pupils equal, round, reactive to light and accommodation (PERRL). External ear without lesion or discharge. Straight, nares patient, mucosa pink, no discharge. Cardio: Normal Rate and Rhythm with S1 and S2 heart sounds. No murmurs or extra heart sounds auscultated. No bruits on carotid auscultation. No peripheral edema or cyanosis. Lungs: Symmetric with good expansion. Chest and back non-tender. Breath sounds vesicular without crackles, wheezing or rhonchi Abdomen: Non-tender, Non-distended, Normal Reactive Bowel Sounds Neuro: Alert, cooperative, oriented to person, place, and time. Speech clear. CN grossly intact. Upper motor strength 5/5 and Lower motor strength 5/5. Sensation intact. Objective Labs 10/01/24 05:14 10/01/24 05:14 Labs: Laboratory Results - last 24 hr 09/26/24 09/30/24 10:25 04:34 WBC 6.7 RBC 4.18 Hgb 12.1 Hct 36.8 MCV 88 MCH 28.9 MCHC 32.9 RDW Std Deviation 41.9 Plt Count 210 Neut % (Auto) 65 Lymph % (Auto) 17 [place] % (Auto) 13 H Eos % (Auto) 4 Baso % (Auto) 0 Neut # (Auto) 4.4 Lymph # (Auto) 1.2 [place] # (Auto) 0.9 H Eos # (Auto) 0.3 Baso # (Auto) 0.0 Immature Gran # (Auto) 0.03 H Absolute Nucleated RBC 0.00 Immature Gran % 0 Nucleated RBC % 0 PT 10.5 INR 1.0 APTT 26.3 Sodium 140 Potassium 4.1 D Chloride 104 Carbon Dioxide 26.5 Anion Gap 10 BUN 18 Creatinine 0.7 Estim Creat Clear Calc 76.3 eGFR > 60 BUN/Creatinine Ratio 26 H Glucose 133 H Calculated Osmolality 283 Uric Acid 6.2 Calcium 8.9 Corrected Calcium 8.9 Phosphorus 3.4 Magnesium 2.1 Total Bilirubin 0.4 AST 18 ALT 17 Alkaline Phosphatase 79 Lactate Dehydrogenase 280 H Total Protein 6.3 Albumin 4.0 Globulin 2.3 Albumin/Globulin Ratio 1.7 CA 19-9 Antigen 3 Quality Measures Quality Measures none Advance care planning discussed with:: patient Assessment & Plan Assessment Current Active Medications: Generic Name Dose Route Start Last Admin Trade Name Freq PRN Reason Stop Dose Admin Acetaminophen 650 mg 09/26/24 15:35 Acetaminophen 325 Mg Tablet PO 10/26/24 15:34 Q6H PRN Mild Pain 1-3 or Fever >100.4 Hydrocodone Bitart/Acetaminophen 1 tab 09/26/24 15:35 09/29/24 14:49 Hydrocodone/Apap 5/325 Tablet PO 10/01/24 15:34 1 tab Q4HR PRN Administration PAIN SCALE 4-10(Mod-Sev Amlodipine Besylate 5 mg 09/27/24 21:00 09/30/24 08:37 Amlodipine Besylate 5 Mg Tablet PO 10/27/24 20:59 5 mg QDAY ZACARIAS Administration Atorvastatin Calcium 20 mg 09/27/24 21:00 09/29/24 21:28 Atorvastatin Calcium 20 Mg Tablet PO 10/27/24 20:59 20 mg HS ZACARIAS Administration Hydralazine HCl 10 mg 09/26/24 17:28 09/27/24 16:12 Hydralazine Inj 20 Mg/Ml Vial IV 10/26/24 17:27 10 mg Q4HR PRN Administration hypertension Hydroxyzine HCl 10 mg 09/26/24 17:17 Hydroxyzine Hcl 10 Mg Tablet PO 10/26/24 17:16 Q6HR PRN ANXIETY Acetaminophen 1,000 mg in 100 mls @ 250 mls/hr 09/30/24 12:22 09/30/24 13:58 Ofirmev Inj IV 10/01/24 06:23 250 mls/hr Q6HR ZACARIAS Administration Lisinopril 40 mg 09/28/24 09:00 09/30/24 08:36 Lisinopril 20 Mg Tablet PO 10/28/24 08:59 40 mg QDAY ZACARIAS Administration Melatonin 3 mg 09/27/24 21:00 Melatonin 3 Mg Tablet PO 10/26/24 20:59 HS PRN Sleep Morphine Sulfate 1 mg 09/26/24 15:52 Morphine Sulf Inj 10 Mg/Ml Vial IVP 10/01/24 15:51 Q4HR PRN Pain 7-10 Ondansetron HCl 4 mg 09/26/24 15:35 Ondansetron Inj 2 Mg/Ml Inj 2 Ml IV 10/26/24 15:34 Q6H PRN NAUSEA OR VOMITING Protocol Pantoprazole Sodium 40 mg 09/26/24 16:00 09/30/24 08:38 Pantoprazole Inj 40 Mg Vial IV 10/26/24 15:59 40 mg QDAY ZACARIAS Administration Plan Patient is a 74-year-old female with limited past medical history new diagnosis of hypertension who was admitted on 09/26/2024 for intractable abdominal pain and found to have pathologic right axillary lymphadenopathy, abdominal wall, numerous mets to pulmonary nodular masses, splenic lesions and obstructing sigmoid colon. #Diffuse Large B-Cell Lymphoma #Widespread Malignancy with Mets to R. Breast, Lung, Bones, and colon #S/P [id number] #Sigmoid Mass colonoscopy #Post US guided Biopsy of Axillary lymph node biopsy #S/P Polypectomy due to multiple polyps in colon,colonoscopy Given colonoscopy biopsy (09/27/2024) and breast tissue biopsy both showing Diffuse B Cell lymphoma, patient will be treated with chemotherapy as outpatient. S/p Port-A-Cath for chemotherapy as outpatient at the cancer center, procedure done by Dr. Cole. Patient will follow up with Dr. Meredith. See pathology report. Likely D/C tomorrow, will stay one more night for pain management. Diagnostics: CA 15, AFP, and CEA within limits. Lactate Dehydrogenase 280 (H) CA 19-9 (winthin normal range as well) CT: Pathologic right axillary lymphadenopathy; 16mm retroareolar right breast mass; Thickening of the right chest wall measuring up to 16 mm; Recommend bilateral breast sonography diagnostic mammography follow-up; Numerous metastatic pulmonary nodular masses; 16 mm solid splenic lesion; Peritoneal soft tissue tumor nodules; 30 x 32 mm solid mass in the sigmoid colon, recommend colonoscopy to confirm malignant neoplasm of the sigmoid colon; Subcutaneous soft tissue metastatic masses as above; Osteolytic lesion L5, right iliac bone; Consider whole body PET CT scan follow-up Plan -Pain Management (Acetaminophe, Noroc, and Morphine) -Protonix 40 IV daily -Gastroenterology consulted, Dr. Tyler, appreciate recommendations -Radiation oncology consulted, Dr. Meredith, appreciate recommendations -General Surgery Consulted, Dr. Cole, appreciate recommendations #Hypertension #Hypertension urgency, resolved. #Hyperlipidemia Possible history of hypertension, but patient denied any medication on board for that. Utox negative. A1c 6.3. ASCVD Risk Scole 32.1% Risk of Cardiovascular event (specially given elevated systolic blood pressure). Moderate to high intensitity statins. Start patient at moderate with 20 mg HS. Plan -Lisinopril 40 mg daily -Amlodipine 10 mg Qday -Atorvastatin 20 mg HS -Hydralazine PRN #Asymptomatic Cystitis No treatment as patient is asymtomatic Plan -Monitor Health Maintenance: Disp: Pt is currently admitted to floors for further management of abdominal pain , likely DC tomorrow for further management. FEN: cardiac diet DVT: compression device GI: protonix 40 mg IV Code: Full Code - The patient's plan was discussed with attending Dr. Stearns and senior residents Dr. Zuleyma Randle MD PGY1 Internal Medicine Senior Resident Attestation: I discussed with and supervised the business development intern physician involved in the care of this patient. I personally saw and examined the patient and discussed the assessment and plan with the entire medicine team, including my attending. I agree with the assessment and plan as documented above. - Patient's care was discussed with my attending physician. Evan Amor MD Internal Medicine PGY-3 Attending Provider Attestation/Addendum I have examined the patient, reviewed labs and imaging findings, discussed the case with the resident(s), and reviewed entered orders. I agree with the plan of care as outlined in this note. Dr. Stearns
--- NOTE | 2024-09-30 16:29 | PC.SS ---
SS update: Patient will be staying 1 more night for pain management.
--- NOTE | 2024-09-30 20:46 | PD.IMPROG ---
Documentation for date of: 09/30/24 Subjective Subjective Interval history: Patient status post placement of a Port-A-Cath patient is very much aware of her diagnosis Exam Vital Signs Temp Pulse Resp BP Pulse Ox O2 Del Method O2 Flow Rate 97.9 F 85 17 139/66 H 95 Room Air 2 09/30/24 16:00 09/30/24 16:00 09/30/24 16:00 09/30/24 16:00 09/30/24 16:00 09/30/24 16:00 09/30/24 13:22 Objective Labs 09/30/24 04:34 09/30/24 04:34 Labs: Laboratory Results - last 24 hr 09/26/24 09/30/24 10:25 04:34 WBC 6.7 RBC 4.18 Hgb 12.1 Hct 36.8 MCV 88 MCH 28.9 MCHC 32.9 RDW Std Deviation 41.9 Plt Count 210 Neut % (Auto) 65 Lymph % (Auto) 17 [place] % (Auto) 13 H Eos % (Auto) 4 Baso % (Auto) 0 Neut # (Auto) 4.4 Lymph # (Auto) 1.2 [place] # (Auto) 0.9 H Eos # (Auto) 0.3 Baso # (Auto) 0.0 Immature Gran # (Auto) 0.03 H Absolute Nucleated RBC 0.00 Immature Gran % 0 Nucleated RBC % 0 PT 10.5 INR 1.0 APTT 26.3 Sodium 140 Potassium 4.1 D Chloride 104 Carbon Dioxide 26.5 Anion Gap 10 BUN 18 Creatinine 0.7 Estim Creat Clear Calc 76.3 eGFR > 60 BUN/Creatinine Ratio 26 H Glucose 133 H Calculated Osmolality 283 Uric Acid 6.2 Calcium 8.9 Corrected Calcium 8.9 Phosphorus 3.4 Magnesium 2.1 Total Bilirubin 0.4 AST 18 ALT 17 Alkaline Phosphatase 79 Lactate Dehydrogenase 280 H Total Protein 6.3 Albumin 4.0 Globulin 2.3 Albumin/Globulin Ratio 1.7 CA 19-9 Antigen 3 Impressions Impression: # Large cell lymphoma status postplacement of Oncology follow-up Assessment & Plan A&P Narrative 1. Widespread malignancy involving right breast axilla lung bone, colon this appears aggressive with Ki-67 moderately high with biopsy from right breast and colon site revealing diffuse large B-cell lymphoma. 2. This appears aggressive with Ki-67 moderately high, and FISH panel for high-grade lymphoma pending. 3. Patient's renal function potassium phosphorus and uric acid are unremarkable so uric acid lowering agents to prevent tumor lysis syndrome can be delayed until chemo started. 4. Shall see patient upon discharge, order PET for staging, introduce patient to Dr. Mclean medical oncologist for chemotherapy. Time Spent With Patient Time: Total time spent is greater than 50% in coordination of care (as documented) at patient's floor/unit and/or counseling patient:
[2024-09-30] MEDS: ATORVASTATIN CALCIUM 20 MG TABLET PO (21:30)
[2024-10-01] VITALS: BP 136/61; PULSE 79; RESP 18; TEMP 36.4; O2SAT 95
[2024-10-01] MEDS: ACETAMINOPHEN IVPB 1,000 MG/100 ML VIAL 250 MG IV ×2 (00:19→06:23)
[2024-10-01 04:00] VITALS: BP 147/70; PULSE 73; RESP 18; TEMP 36.3; O2SAT 94
[2024-10-01 05:58] LABS: Basophils % (Auto) 0 % (0-2.5); Eosinophils % (Auto) 0 % (0-10); Hematocrit 36.2 % (36.0-46.0); Hemoglobin 12.2 g/dL (12.0-16.0); Immature Granulocytes % (Auto) 1 % (0-0); Immature Granulocytes Auto 0.06 Thou/mm3 (0.00-0.00); Lymphocytes % (Auto) 12 % (10-50); Mean Corpuscular HGB Conc 33.7 g/dl (31.0-37.0); Mean Corpuscular Volume 86 fL (80-100); Monocytes # (Auto) 0.8 Thou/mm3 (0.0-0.8); Monocytes % (Auto) 10 % (0-12); Neutrophils # (Auto) 6.1 Thou/mm3 (1.8-7.7); Neutrophils % (Auto) 77 % (37-80); Nucleated Red Blood Cell % 0 /100 WBC (0); Platelet Count 217 Thou/mm3 (140-440); RDW Standard Deviation 39.8 fL (36.4-46.3); Red Blood Count 4.21 Miln/mm3 (4.00-5.20); White Blood Count 7.9 Thou/mm3 (3.6-11.0)
[2024-10-01 06:35] LABS: Alanine Aminotransferase 15 U/L (10-49); Albumin, Serum 4.2 gm/dL (3.4-4.8); Albumin/Globulin Ratio 1.8 (1.2-2.2); Alkaline Phosphatase 72 U/L (46-116); Anion Gap 8 (7-16); Aspartate Amino Transferase 15 U/L (0-34); BUN/Creatinine Ratio 24 Ratio (12-20); Bilirubin,Total 0.4 mg/dL (0.3-1.2); Blood Urea Nitrogen 22 mg/dL (9-23); Calcium 8.9 mg/dL (8.3-10.6); Calcium (Corrected) 8.9 mg/dL (8.5-10.1); Carbon Dioxide 27.2 mMol/L (20.0-31.0); Chloride 104 mMol/L (98-107); Creatinine (Component) 0.9 mg/dL (0.6-1.3); Estimated Creatinine Clearance 59.4 mL/min (>60); Globulin 2.4 gm/dL (2.3-3.5); Glucose 174 mg/dL (74-106); Osmolality,Calculated 284 (275-295); Potassium 4.4 mMol/L (3.4-5.1); Sodium 139 mMol/L (136-145); Total Protein 6.6 gm/dL (5.7-8.2); eGFR > 60 See Note
[2024-10-01 08:00] VITALS: BP 161/73; PULSE 79; RESP 18; TEMP 36.5; O2SAT 94
[2024-10-01 09:19] VITALS: BP 161/73; PULSE 79
[2024-10-01] MEDS: amLODIPine BESYLATE 5 MG TABLET PO (09:19)
[2024-10-01 09:20] VITALS: BP 161/73; PULSE 79
[2024-10-01] MEDS: PANTOPRAZOLE INJ 40 MG VIAL IV (09:20)
[2024-10-01] MEDS: Lisinopril 20 MG TABLET 40 MG PO (09:20)
[2024-10-01 09:51] LABS: Magnesium 2.3 mg/dL (1.6-2.6)
--- NOTE | 2024-10-01 11:36 | PC.SS ---
Addendum entered by JOSE LUIS Carr 10/01/24 11:50: Faxed referral to [facility] as patient was interested in referral. Copy to be placed in patient's chart. Original Note: SS follow up: met with patient and family at bed side. Patient is requesting home health for nursing. Patient has no preferred HH agency. Notified Dr. Conteh of need for HH referral. Patient to d/c home today. Family at bed side to assist with transportation home.
--- NOTE | 2024-10-01 13:04 | PD.RESDS ---
Planned Discharge Date 09/30/24 DS: Providers Provider Date of admission: 09/26/24 15:35 Primary care physician: Iris Nuno MD Admitting Provider: Mina Sorensen MD Attending Provider on Admission: Yakov Stearns MD Consults: 09/26/24 14:21 Consult to Gastroenterology Stat Comment: Consulting Provider: Nancy Tyler Consult to Oncology Stat Comment: Consulting Provider: Jose Antonio Meredith 09/27/24 21:33 Consult to General Surgery Routine Comment: Consulting Provider: Marin Cole Attending Provider on DC: Gila Randle MD Discharging Provider: Gila Randle MD DS: Diagnosis Problem List Completed Was Problem List Reviewed/Reconciled?: Yes Hospital Course Hospital Course Hospital course: Summary: Patient is a 74-year-old female with limited past medical history new diagnosis of hypertension who was admitted on 09/26/2024 for intractable abdominal pain and found to have pathologic right axillary lymphadenopathy, abdominal wall, numerous mets to pulmonary nodular masses, splenic lesions and obstructing sigmoid colon found to have Diffuse Large B-cell lymphoma after biopsy from sigmoid colon and from right breast mass. ER Course: In the emergency room patient blood pressure was elevated 189/70, kidney function within normal limits, within a normal WBC count of 7, glucose within normal limits and C-reactive protein 1.2 (high). AST and ALT numbers within normal limits. UA positive for esterase and WBC count with 33, no bacteria noted. Abdomen chest pelvis CT showed: Pathological right axial lymphadenopathy, a 16mm right atrial alveolar right breast mass, thickening of the right chest wall measuring up to 16 mm, multiple mass like pulmonary nodules, 16mm solid splenic lesion, peritoneal soft tissue tumor nodules, 38 x 32 mm solid mass in the sigmoid colon, subcutaneous soft tissue metastatic masses, osteolytic lesions of 5 right iliac bone. Recommendation to follow-up with whole-body PET CT scan Dr. Tyler and Dr. Meredith oncology were consulted from the emergency room. Hospital: In the hospital, patient was prepped for colonoscopy with Go[facility] and procedure performed by Dr. Tyler on 09/27/2024 and found to have hemorrhoids, moderate diverticulosis in the sigmoid colon and descending colon, and a polypoid partially obstructing large mass found in the sigmoid colon. Biopsies obtained from site. Patient subsequently had biopsy of the enlarged right axillary lymph node. Both samples sent to pathology and showed diffuse large B-cell lymphoma. Dr. Meredith updated patient's family and will follow-up outpatient at the cancer center. Dr Cole, general surgery placed a Port-A-Cath to start chemotherapy as outpatient bases. Patient was started on antihypertensive medication, as in the hospital, patient continued to present with hypertension and started on Lisinopril 40 mg Q Day and Amlodipine 5 mg oral at night. Patient was started on Atorvastatin 20 mg at night ASCVD risk score of 32.1%. Positive UA but asymptomatic as patient denied any dysuria, hesitancy or increase urge. Instructions: -Please continue amlodipine 5 mg once a day for high blood pressure -Please continue Lisinopril 40 mg once a day for high blood pressure -Please continue Atorvastatin 20 mg once day once a day for high cholesterol -Please take hydrocodone-acetaminophen 5-325 mg twice a day as needed for pain -Please follow up with your primary care provider within one week of discharge -Please follow up with Dr. Meredith and the cancer center for new diagnosis for B Cell lymphoma -If your symptoms worsen,please seek immediate medical attention and return to your nearest emergency room -Port-A-Cath instructions: you may start taking a shower again 48 hours after your procedure, avoid lifting and physical activity for 2 days after your procedure, no tub bath or swimming for 7-10 days or until your site heals. -If you do not have a primary care provider, you may follow up at the [facility] at [address] [place] [address] [address], [place] [address], Disposition: Home #Diffuse Large B-Cell Lymphoma #Widespread Malignancy with Mets to R. Breast, Lung, Bones, and colon #Sigmoid Mass colonoscopy #Post US guided Biopsy of Axillary lymph node biopsy #S/P Polypectomy due to multiple polyps in colon,colonoscopy #Hypertension #Hypertension urgency, improved. #Hyperlipidemia #Asymptomatic Cystitis - The patient's plan was discussed with attending Dr. Stearns and senior residents Dr. Nandini Randle MD PGY1 Internal Medicine Time Spent with Patient Time attestation: Total time spent providing and/or coordinating discharge services: at least 35 minutes of care and coordination Exam Vital Signs Temp Pulse Resp BP Pulse Ox O2 Del Method O2 Flow Rate 96.0 F L 74 18 151/69 H 95 Room Air 2 09/30/24 14:00 09/30/24 14:00 09/30/24 14:00 09/30/24 14:00 09/30/24 14:00 09/30/24 14:00 09/30/24 13:22 Narrative Exam General Appearance: Alert & Oriented X3, well-nourished female who is lying in bed in no acute distress HEENT: Skull symmetrical and atraumatic. Conjunctivae pin and moist. Pupils equal, round, reactive to light and accommodation (PERRL). External ear without lesion or discharge. Straight, nares patient, mucosa pink, no discharge. Cardio: Normal Rate and Rhythm with S1 and S2 heart sounds. No murmurs or extra heart sounds auscultated. No bruits on carotid auscultation. No peripheral edema or cyanosis. Lungs: Symmetric with good expansion. Chest and back non-tender. Breath sounds vesicular without crackles, wheezing or rhonchi Abdomen: Non-tender, Non-distended, Normal Reactive Bowel Sounds Neuro: Alert, cooperative, oriented to person, place, and time. Speech clear. CN grossly intact. Upper motor strength 5/5 and Lower motor strength 5/5. Sensation intact. Discharge Plan Plan Patient Disposition: HOME (Self Care) Disposition Comment: Stable Care Plan Goals: Instructions: -Please continue amlodipine 5 mg once a day for high blood pressure -Please continue Lisinopril 40 mg once a day for high blood pressure -Please continue Atorvastatin 20 mg once day once a day for high cholesterol -Please take hydrocodone-acetaminophen 5-325 mg twice a day as needed for pain -Please follow up with your primary care provider within one week of discharge -Please follow up with Dr. Meredith and the cancer center for new diagnosis for B Cell lymphoma -Port-A-Cath instructions: you may start taking a shower again 48 hours after your procedure, avoid lifting and physical activity for 2 days after your procedure, no tub bath or swimming for 7-10 days or until your site heals. -If your symptoms worsen,please seek immediate medical attention and return to your nearest emergency room -If you do not have a primary care provider, you may follow up at the [facility] at [address], [place] [address], Disposition: Home with home health Prescriptions/Referrals Prescriptions/Med Rec: New atorvastatin 20 mg Tablet 20 mg PO HS Qty: 30 0RF amlodipine 5 mg Tablet 5 mg PO QDAY Qty: 30 0RF lisinopril 40 mg tablet 40 mg PO QDAY Qty: 30 0RF melatonin 3 mg Tablet 3 mg PO HS PRN (Reason: Sleep) Qty: 30 0RF pantoprazole [Protonix] 40 mg tablet,delayed release (DR/EC) 40 mg PO QDAY Qty: 14 0RF (DME) blood pressure monitor [Blood Pressure Kit] Kit See Rx Instructions .Route Qty: 1 0RF Rx Instructions: As directed Referrals: Iris Nuno MD [Primary Care Provider] - Marin Cole MD [Physician] - Jose Antonio Meredith MD [Physician] - Nancy Tyler MD [Physician] - Patient/Caregiver Discharge Instructions Education Materials: Vascular Access Port Implantation, Needle Breast Biopsy, Blood Pressure Check Steps Print Language: Persian Activity Restrictions/Additional Instructions: Keep dressing intact for 3 days, them may remove and shower. May use portacath. Follow up with Dr. Cole in 2 weeks, Please call [phone] for an appointment. Stand Alone Forms: Jennifer Award Info., Patient Portal Info Letter Discharge Order Discharge Orders: Discharge (Routine); Ordered 10/01/24 Ordered By: Nathan Conteh Quality Discharge Quality Measures VTE prophylaxis MD Attestestation MD Attestation I have examined the patient, reviewed labs and imaging findings, discussed the case with the resident(s), and reviewed entered orders. I agree with the plan of care as outlined in this note. Dr. Stearns
== END 2024-10-01 12:13 | disposition home or self-care (01) | DRG 824 ==
LOC: SERX 14:27 → SERHOLD 16:28 → S3SX 09-27 06:29
PROVIDERS: Nurse Practitioner Primary Care; Specialist; Student in an Organized Health Care Education/Training Program; Surgery; Admitting Provider Student in an Organized Health Care Education/Training Program; Emergency Provider Emergency Medicine; PCP Internal Medicine; Visit Provider Student in an Organized Health Care Education/Training Program
PROC: 0DJD8ZZ Inspection of Lower Intestinal Tract, Via Natural or Artificial Opening Endoscopic (ICD-10-PCS; CPT 45378; principal; 2024-09-27 14:00)
PROC: 0JH63WZ Insertion of Totally Implantable Vascular Access Device into Chest Subcutaneous Tissue and Fascia, Percutaneous Approach (ICD-10-PCS; principal; 2024-09-30 14:00)
DX: C83.34 Diffuse large B-cell lymphoma, lymph nodes of axilla and upper limb (principal); C18.7 Malignant neoplasm of sigmoid colon; I87.1 Compression of vein; I16.0 Hypertensive urgency; R59.0 Localized enlarged lymph nodes; D73.89 Other diseases of spleen; M89.9 Disorder of bone, unspecified; I10 Essential (primary) hypertension; E11.65 Type 2 diabetes mellitus with hyperglycemia; E78.5 Hyperlipidemia, unspecified; K64.9 Unspecified hemorrhoids; K57.30 Diverticulosis of large intestine without perforation or abscess without bleeding; B96.20 Unspecified Escherichia coli [E. coli] as the cause of diseases classified elsewhere; N30.90 Cystitis, unspecified without hematuria
CPT/HCPCS: 36415; 71046; 71260; 74177; 80053; 80061; 80307; 81001; 82105; 82378; 83036; 83615; 83690; 83735; 84100; 84443; 84550; 85025; 85610; 85730; 86140; 86300; 86301; 87077; 87086; 87186; 96374; 99285; A4217; A4648; A4649; C1788; J0131; J0360; J0690; J1100; J1200; J1643; J1644; J2250; J2405; J2470; J2704; J3010; J3490; J7050; Q9967; A9270

== ENCOUNTER 2024-11-02 13:14 | Outpatient (RCR) | payer OTHER, MEDICAID, SELFPAY ==
[2024-10-21 10:44] LABS: Basophils % (Auto) 0 % (0-2.5); Eosinophils # (Auto) 0.1 Thou/mm3 (0.0-0.5); Eosinophils % (Auto) 1 % (0-10); Hematocrit 34.6 % (36.0-46.0); Hemoglobin 12.1 g/dL (12.0-16.0); Immature Granulocytes % (Auto) 0 % (0-0); Immature Granulocytes Auto 0.04 Thou/mm3 (0.00-0.00); Lymphocytes # (Auto) 0.4 Thou/mm3 (1.0-4.8); Lymphocytes % (Auto) 4 % (10-50); Mean Corpuscular Hemoglobin 29.1 pg (25.0-35.0); Mean Corpuscular Volume 83 fL (80-100); Monocytes % (Auto) 0 % (0-12); Neutrophils # (Auto) 9.2 Thou/mm3 (1.8-7.7); Neutrophils % (Auto) 95 % (37-80); Nucleated Red Blood Cell % 0 /100 WBC (0); Platelet Count 182 Thou/mm3 (140-440); RDW Standard Deviation 38.5 fL (36.4-46.3); Red Blood Count 4.16 Miln/mm3 (4.00-5.20); White Blood Count 9.8 Thou/mm3 (3.6-11.0)
[2024-10-21 10:55] LABS: Uric Acid 2.6 mg/dL (3.1-7.8)
[2024-10-21 10:58] LABS: Alanine Aminotransferase 19 U/L (10-49); Albumin, Serum 3.6 gm/dL (3.4-4.8); Alkaline Phosphatase 59 U/L (46-116); Anion Gap 6 (7-16); Aspartate Amino Transferase 14 U/L (0-34); BUN/Creatinine Ratio 25 Ratio (12-20); Bilirubin,Total 0.5 mg/dL (0.3-1.2); Blood Urea Nitrogen 15 mg/dL (9-23); Calcium 8.2 mg/dL (8.3-10.6); Calcium (Corrected) 8.5 mg/dL (8.5-10.1); Chloride 107 mMol/L (98-107); Creatinine (Component) 0.6 mg/dL (0.6-1.3); Globulin 1.8 gm/dL (2.3-3.5); Glucose 137 mg/dL (74-106); LDH (Lactate Dehydrogenase) 208 U/L (120-246); Osmolality,Calculated 284 (275-295); Sodium 141 mMol/L (136-145); Total Protein 5.4 gm/dL (5.7-8.2); eGFR > 60 See Note
[2024-10-22 10:25] LABS: Basophils % (Auto) 0 % (0-2.5); Eosinophils # (Auto) 0.2 Thou/mm3 (0.0-0.5); Eosinophils % (Auto) 1 % (0-10); Hematocrit 35.5 % (36.0-46.0); Hemoglobin 13.1 g/dL (12.0-16.0); Immature Granulocytes % (Auto) 10 % (0-0); Immature Granulocytes Auto 1.88 Thou/mm3 (0.00-0.00); Lymphocytes # (Auto) 0.6 Thou/mm3 (1.0-4.8); Lymphocytes % (Auto) 4 % (10-50); Mean Corpuscular HGB Conc 36.9 g/dl (31.0-37.0); Mean Corpuscular Volume 84 fL (80-100); Monocytes % (Auto) 0 % (0-12); Neutrophils # (Auto) 15.3 Thou/mm3 (1.8-7.7); Neutrophils % (Auto) 85 % (37-80); Nucleated Red Blood Cell % 0 /100 WBC (0); Platelet Count 180 Thou/mm3 (140-440); RDW Standard Deviation 39.8 fL (36.4-46.3); Red Blood Count 4.22 Miln/mm3 (4.00-5.20); White Blood Count 18.1 Thou/mm3 (3.6-11.0)
[2024-10-22 10:41] LABS: Alanine Aminotransferase 20 U/L (10-49); Albumin, Serum 3.6 gm/dL (3.4-4.8); Albumin/Globulin Ratio 1.9 (1.2-2.2); Alkaline Phosphatase 71 U/L (46-116); Anion Gap 6 (7-16); Aspartate Amino Transferase 16 U/L (0-34); BUN/Creatinine Ratio 14 Ratio (12-20); Bilirubin,Total 0.6 mg/dL (0.3-1.2); Blood Urea Nitrogen 10 mg/dL (9-23); Calcium 8.4 mg/dL (8.3-10.6); Calcium (Corrected) 8.7 mg/dL (8.5-10.1); Carbon Dioxide 27.9 mMol/L (20.0-31.0); Chloride 107 mMol/L (98-107); Creatinine (Component) 0.7 mg/dL (0.6-1.3); Globulin 1.9 gm/dL (2.3-3.5); Glucose 153 mg/dL (74-106); Osmolality,Calculated 283 (275-295); Potassium 3.4 mMol/L (3.4-5.1); Sodium 141 mMol/L (136-145); Total Protein 5.5 gm/dL (5.7-8.2); eGFR > 60 See Note
--- NOTE | 2024-10-26 00:05 | CTCCONSULT_ITS ---
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 etoposide (Vepesid) 100 mg, vinCRlStine (Oncovin) 0.8 mg in sodium chloride 0.9 A 500 mL chemo infusion. . Intravenous. Once. Last Rate: 23 mUhr at 10/16/24 0727sodium chloride 0.9 ?.?o. , Last Rate: 75 mL/hr at 10/16/24 0128. New Bag at 10/16/24 0128 DOXOrubicin (Adriamycin) 20.2 mg. etoposide (Vepesid) 100 mg. vinCRlStine (Oncovin) 0.8 mg in sodium chloride 0.9 % 500 mL chemo infusion. . Care?Plan Start?Date Cycle Day Intent HISTORY OF PRESENT ILLNESS: 74-year-old female with medical history of hypertension, hyperlipidemia and morbid obesity, was diagnosed when they completed imaging found to have a breast mass and an axillary mass, biopsy confirmed diffuse large B-cell lymphoma. - presented initially with right sided upper abdominal/ rib pain - CT C/A/P from outside facility showed right axillary lymphadenopathy, 16 mm retro-areolar breast mass with thickening of the right chest wall, numerous pulmonary nodules, 16 mm splenic leSIon, - Unden/vent colonoscopy which showed large, partially obstructing mass in sigmoid colon .biopsy or right breast mass/ axilla. 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 MYC-IGH, BCLZ. BCL6 rearrangements present by FISH. Ki-67 moderately h gh, 70-80%. 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 acyclovir - 200 mg As directed 2. allopurinol - 300 mg Daily 3. Claritin - 10 mg Daily 4. fluconazole - 200 mg Daily 5. hydralazine - 500 mg Daily 6. hydrocodone-acetaminophen - 5-325 mg 1 tab Daily 7. levofloxacin - 50 mg Three times a day 8. sulfamethoxazole - 160 mg As directed Medications Last Reconciled by Diane Sebastian LVN on 10/21/2024 ALLERGIES: REVIEW OF SYSTEMS: A complete 14-point review of systems was performed and is negative except as noted in interval history. PHYSICAL EXAMINATION: VITAL SIGNS: Temperature?99.9, B/P?175/70, Height?59.5?inches Weight?236?lbs PAIN: 8 - Very severe pain ECOG Performance Status: 1 - Symptomatic; ambulatory; restricted in strenuous activity GENERAL APPEARANCE: Appears well, in no apparent distress, appropriately interactive. HEENT: Normocephalic, no temporal wasting, normal conjunctiva, no scleral icterus, normal hearing, lips without lesions, neck normal range of motion. CARDIOVASCULAR: Not assessed. PULMONARY: Normal respiratory effort, no respiratory distress or use of accessory muscles, speaking in full sentences, no tachypnea. EXTREMITIES: No pedal edema or cyanosis. SKIN: Normal skin appearance. NEUROLOGIC: Alert and oriented x4. PSHYCHIATRIC: Appropriate affect, mood normal, behavior normal, intact thought and speech. 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 Bass will like us to RETURN TO CLINIC: BILLING AND COMPLIANCE: I reviewed external records from providers outside my specialty as summarized above. I spent a total of 50 minutes on this patient?s care on the day of their visit excluding time spent related to any billed procedures. This time includes time spent with the patient as well as time spent documenting in the medical record, reviewing patients records and tests, obtaining history, placing orders, communicating with other healthcare professionals, counseling the patient, family or caregiver, and/or care coordination for the diagnoses above. Electronically Signed by: Yvon Mclean MD T: 12:03 AM CC: PCP: Gunjan Cooper Referring: Gunjan Cooper This document was completed utilizing speech recognition software. Grammatical errors, random word insertions, pronoun errors, and incomplete sentences are an occasional consequence of this system due to software limitations, ambient noise, and hardware issues. Any formal questions or concerns about the content, text or information contained within the body of this dictation should be directly addressed to the provider for clarification.
[2024-10-26 09:20] LABS: Basophils % (Auto) 1 % (0-2.5); Eosinophils # (Auto) 0.1 Thou/mm3 (0.0-0.5); Eosinophils % (Auto) 8 % (0-10); Hematocrit 39.7 % (36.0-46.0); Hemoglobin 13.4 g/dL (12.0-16.0); Immature Granulocytes % (Auto) 0 % (0-0); Lymphocytes # (Auto) 0.8 Thou/mm3 (1.0-4.8); Lymphocytes % (Auto) 62 % (10-50); Mean Corpuscular HGB Conc 33.8 g/dl (31.0-37.0); Mean Corpuscular Hemoglobin 28.8 pg (25.0-35.0); Mean Corpuscular Volume 85 fL (80-100); Monocytes # (Auto) 0.3 Thou/mm3 (0.0-0.8); Monocytes % (Auto) 20 % (0-12); Neutrophils # (Auto) 0.1 Thou/mm3 (1.8-7.7); Neutrophils % (Auto) 10 % (37-80); Nucleated Red Blood Cell % 0 /100 WBC (0); Platelet Count 109 Thou/mm3 (140-440); RDW Standard Deviation 41.2 fL (36.4-46.3); Red Blood Count 4.65 Miln/mm3 (4.00-5.20)
[2024-10-26 09:29] LABS: Alanine Aminotransferase 26 U/L (10-49); Albumin, Serum 4.4 gm/dL (3.4-4.8); Albumin/Globulin Ratio 1.8 (1.2-2.2); Alkaline Phosphatase 83 U/L (46-116); Anion Gap 10 (7-16); Aspartate Amino Transferase 11 U/L (0-34); BUN/Creatinine Ratio 16 Ratio (12-20); Bilirubin,Total 0.7 mg/dL (0.3-1.2); Blood Urea Nitrogen 14 mg/dL (9-23); Carbon Dioxide 24.2 mMol/L (20.0-31.0); Chloride 105 mMol/L (98-107); Creatinine (Component) 0.9 mg/dL (0.6-1.3); Globulin 2.5 gm/dL (2.3-3.5); Glucose 181 mg/dL (74-106); Osmolality,Calculated 283 (275-295); Potassium 3.9 mMol/L (3.4-5.1); Sodium 139 mMol/L (136-145); Total Protein 6.9 gm/dL (5.7-8.2); eGFR > 60 See Note
[2024-10-26 10:46] LABS: White Blood Count 1.3 Thou/mm3 (3.6-11.0)
[2024-10-28 09:43] LABS: Basophils % (Auto) 0 % (0-2.5); Eosinophils # (Auto) 0.1 Thou/mm3 (0.0-0.5); Eosinophils % (Auto) 1 % (0-10); Hematocrit 35.6 % (36.0-46.0); Hemoglobin 11.8 g/dL (12.0-16.0); Immature Granulocytes % (Auto) 24 % (0-0); Immature Granulocytes Auto 3.78 Thou/mm3 (0.00-0.00); Lymphocytes % (Auto) 7 % (10-50); Mean Corpuscular HGB Conc 33.1 g/dl (31.0-37.0); Mean Corpuscular Hemoglobin 28.6 pg (25.0-35.0); Mean Corpuscular Volume 86 fL (80-100); Monocytes % (Auto) 19 % (0-12); Neutrophils # (Auto) 7.9 Thou/mm3 (1.8-7.7); Neutrophils % (Auto) 50 % (37-80); Nucleated Red Blood Cell # 0.04 Thou/mm3 (0.00-0.00); Nucleated Red Blood Cell % 0 /100 WBC (0); Platelet Count 97 Thou/mm3 (140-440); RDW Standard Deviation 41.7 fL (36.4-46.3); Red Blood Count 4.13 Miln/mm3 (4.00-5.20); White Blood Count 15.8 Thou/mm3 (3.6-11.0)
[2024-10-28 18:10] LABS: Path Review Blood Smear Sent to Pathologist
[2024-11-02 13:59] LABS: Basophils # (Auto) 0.1 Thou/mm3 (0.0-0.2); Basophils % (Auto) 1 % (0-2.5); Eosinophils % (Auto) 0 % (0-10); Hematocrit 36.4 % (36.0-46.0); Immature Granulocytes % (Auto) 16 % (0-0); Immature Granulocytes Auto 2.14 Thou/mm3 (0.00-0.00); Lymphocytes # (Auto) 1.4 Thou/mm3 (1.0-4.8); Lymphocytes % (Auto) 10 % (10-50); Mean Corpuscular Hemoglobin 29.1 pg (25.0-35.0); Mean Corpuscular Volume 88 fL (80-100); Monocytes # (Auto) 1.8 Thou/mm3 (0.0-0.8); Monocytes % (Auto) 14 % (0-12); Neutrophils # (Auto) 7.8 Thou/mm3 (1.8-7.7); Neutrophils % (Auto) 59 % (37-80); Nucleated Red Blood Cell % 0 /100 WBC (0); Platelet Count 205 Thou/mm3 (140-440); Red Blood Count 4.12 Miln/mm3 (4.00-5.20); White Blood Count 13.2 Thou/mm3 (3.6-11.0)
[2024-11-02 14:18] LABS: Alanine Aminotransferase 16 U/L (10-49); Albumin, Serum 4.1 gm/dL (3.4-4.8); Albumin/Globulin Ratio 1.9 (1.2-2.2); Anion Gap 9 (7-16); Aspartate Amino Transferase 10 U/L (0-34); BUN/Creatinine Ratio 19 Ratio (12-20); Bilirubin,Total 0.3 mg/dL (0.3-1.2); Blood Urea Nitrogen 15 mg/dL (9-23); Calcium 8.9 mg/dL (8.3-10.6); Calcium (Corrected) 8.9 mg/dL (8.5-10.1); Carbon Dioxide 25.7 mMol/L (20.0-31.0); Chloride 105 mMol/L (98-107); Creatinine (Component) 0.8 mg/dL (0.6-1.3); Globulin 2.2 gm/dL (2.3-3.5); Glucose 120 mg/dL (74-106); Osmolality,Calculated 281 (275-295); Potassium 3.4 mMol/L (3.4-5.1); Sodium 140 mMol/L (136-145); Total Protein 6.3 gm/dL (5.7-8.2); eGFR > 60 See Note
[2024-11-02 14:54] LABS: Alkaline Phosphatase 112 U/L (46-116)
[2024-11-02 15:07] LABS: Band Neutrophils (Manual) 8 % (0-6); Eosinophils (Manual) 1 % (0-4); Lymphocytes (Manual) 7 % (20-44); Metamyelocytes (Manual) 1 % (0-0); Monocytes (Manual) 13 % (2-9); Myelocytes (Manual) 2 % (0-0); Neutrophils (Manual) 68 % (50-70)
== END 2024-11-05 23:59 | disposition home or self-care (01) ==
LOC: SCTC 13:14
PROVIDERS: PCP Physician Assistant; Referring Provider Physician Assistant; Visit Provider Internal Medicine Hematology & Oncology
DX: C83.398 Diffuse large B-cell lymphoma of other extranodal and solid organ sites (principal)
CPT/HCPCS: 36591; 80053; 83615; 84550; 85025; 96360; 99213; A4216; J1642; J7030; G0463

== ENCOUNTER 2024-12-06 14:38 | Outpatient (RCR) | payer OTHER, MEDICAID, SELFPAY ==
[2024-11-15 13:52] LABS: Basophils % (Auto) 1 % (0-2.5); Eosinophils # (Auto) 0.4 Thou/mm3 (0.0-0.5); Eosinophils % (Auto) 15 % (0-10); Hematocrit 31.5 % (36.0-46.0); Hemoglobin 10.4 g/dL (12.0-16.0); Immature Granulocytes % (Auto) 1 % (0-0); Immature Granulocytes Auto 0.02 Thou/mm3 (0.00-0.00); Lymphocytes # (Auto) 0.6 Thou/mm3 (1.0-4.8); Lymphocytes % (Auto) 21 % (10-50); Mean Corpuscular Hemoglobin 28.7 pg (25.0-35.0); Mean Corpuscular Volume 87 fL (80-100); Monocytes # (Auto) 0.3 Thou/mm3 (0.0-0.8); Monocytes % (Auto) 11 % (0-12); Neutrophils # (Auto) 1.4 Thou/mm3 (1.8-7.7); Neutrophils % (Auto) 51 % (37-80); Nucleated Red Blood Cell % 0 /100 WBC (0); Platelet Count 214 Thou/mm3 (140-440); RDW Standard Deviation 45.9 fL (36.4-46.3); Red Blood Count 3.63 Miln/mm3 (4.00-5.20)
[2024-11-15 14:03] LABS: White Blood Count 2.7 Thou/mm3 (3.6-11.0)
[2024-11-15 14:18] LABS: Alanine Aminotransferase 16 U/L (10-49); Albumin, Serum 3.9 gm/dL (3.4-4.8); Alkaline Phosphatase 98 U/L (46-116); Anion Gap 8 (7-16); Aspartate Amino Transferase 11 U/L (0-34); BUN/Creatinine Ratio 16 Ratio (12-20); Bilirubin,Total 0.4 mg/dL (0.3-1.2); Blood Urea Nitrogen 11 mg/dL (9-23); Calcium 9.1 mg/dL (8.3-10.6); Calcium (Corrected) 9.2 mg/dL (8.5-10.1); Carbon Dioxide 29.5 mMol/L (20.0-31.0); Chloride 103 mMol/L (98-107); Creatinine (Component) 0.7 mg/dL (0.6-1.3); Glucose 117 mg/dL (74-106); Osmolality,Calculated 279 (275-295); Potassium 3.6 mMol/L (3.4-5.1); Sodium 140 mMol/L (136-145); Total Protein 5.9 gm/dL (5.7-8.2); eGFR > 60 See Note
[2024-11-15 15:07] LABS: Band Neutrophils (Manual) 7 % (0-6); Eosinophils (Manual) 11 % (0-4); Lymphocytes (Manual) 16 % (20-44); Metamyelocytes (Manual) 1 % (0-0); Monocytes (Manual) 10 % (2-9); Myelocytes (Manual) 2 % (0-0); Neutrophils (Manual) 53 % (50-70)
[2024-11-15 15:09] LABS: Dohle Bodies 2+
[2024-11-23 14:19] LABS: Basophils # (Auto) 0.1 Thou/mm3 (0.0-0.2); Basophils % (Auto) 1 % (0-2.5); Eosinophils % (Auto) 0 % (0-10); Hematocrit 31.4 % (36.0-46.0); Hemoglobin 10.1 g/dL (12.0-16.0); Immature Granulocytes % (Auto) 13 % (0-0); Immature Granulocytes Auto 2.95 Thou/mm3 (0.00-0.00); Lymphocytes # (Auto) 1.1 Thou/mm3 (1.0-4.8); Lymphocytes % (Auto) 5 % (10-50); Mean Corpuscular HGB Conc 32.2 g/dl (31.0-37.0); Mean Corpuscular Volume 90 fL (80-100); Monocytes # (Auto) 2.1 Thou/mm3 (0.0-0.8); Monocytes % (Auto) 9 % (0-12); Neutrophils # (Auto) 15.7 Thou/mm3 (1.8-7.7); Neutrophils % (Auto) 72 % (37-80); Nucleated Red Blood Cell % 0 /100 WBC (0); Platelet Count 103 Thou/mm3 (140-440); RDW Standard Deviation 54.4 fL (36.4-46.3); Red Blood Count 3.48 Miln/mm3 (4.00-5.20); White Blood Count 21.9 Thou/mm3 (3.6-11.0)
[2024-11-23 14:20] LABS: Immature Reticulocyte Fraction 22.2 % (3.0-15.9); Reticulocyte % (Auto) 4.8 % (0.5-1.5); Reticulocyte Absolute Auto 166.5 Biln/L (25.0-75.0); Reticulocyte Hgb Content 34.2 pg (28.0-35.0)
[2024-11-23 14:41] LABS: Folate 16.36 ng/mL (>5.38); Vitamin B12 > 2000 pg/mL (211-911)
[2024-11-23 14:42] LABS: Alanine Aminotransferase 14 U/L (10-49); Alkaline Phosphatase 114 U/L (46-116); Anion Gap 10 (7-16); Aspartate Amino Transferase < 8 U/L (0-34); BUN/Creatinine Ratio 16 Ratio (12-20); Bilirubin,Total 0.5 mg/dL (0.3-1.2); Blood Urea Nitrogen 19 mg/dL (9-23); Calcium 8.5 mg/dL (8.3-10.6); Calcium (Corrected) 8.5 mg/dL (8.5-10.1); Carbon Dioxide 24.2 mMol/L (20.0-31.0); Chloride 104 mMol/L (98-107); Creatinine (Component) 1.2 mg/dL (0.6-1.3); Ferritin 475 ng/mL (7.3-270.7); Glucose 143 mg/dL (74-106); Iron 31 mcg/dL (50-170); LDH (Lactate Dehydrogenase) 243 U/L (120-246); Osmolality,Calculated 279 (275-295); Percent Iron Saturation 13 % (20-55); Sodium 138 mMol/L (136-145); Total Iron Binding Capacity 231 mcg/dL (250-425); Unsaturated Iron Binding 200 (225-295); eGFR 48 See Note
[2024-11-30 07:45] LABS: Haptoglobin* 331 mg/dL (43-212)
[2024-12-06 15:28] LABS: Basophils % (Auto) 0 % (0-2.5); Eosinophils # (Auto) 0.1 Thou/mm3 (0.0-0.5); Eosinophils % (Auto) 11 % (0-10); Hematocrit 28.6 % (36.0-46.0); Hemoglobin 9.4 g/dL (12.0-16.0); Immature Granulocytes % (Auto) 2 % (0-0); Immature Granulocytes Auto 0.01 Thou/mm3 (0.00-0.00); Lymphocytes # (Auto) 0.3 Thou/mm3 (1.0-4.8); Lymphocytes % (Auto) 62 % (10-50); Mean Corpuscular HGB Conc 32.9 g/dl (31.0-37.0); Mean Corpuscular Hemoglobin 28.9 pg (25.0-35.0); Mean Corpuscular Volume 88 fL (80-100); Monocytes % (Auto) 4 % (0-12); Neutrophils # (Auto) 0.1 Thou/mm3 (1.8-7.7); Neutrophils % (Auto) 22 % (37-80); Nucleated Red Blood Cell % 0 /100 WBC (0); Platelet Count 100 Thou/mm3 (140-440); RDW Standard Deviation 51.2 fL (36.4-46.3); Red Blood Count 3.25 Miln/mm3 (4.00-5.20)
[2024-12-06 15:44] LABS: White Blood Count 0.6 Thou/mm3 (3.6-11.0)
[2024-12-06 15:58] LABS: Alanine Aminotransferase 8 U/L (10-49); Albumin, Serum 3.5 gm/dL (3.4-4.8); Albumin/Globulin Ratio 2.1 (1.2-2.2); Alkaline Phosphatase 69 U/L (46-116); Anion Gap 10 (7-16); Aspartate Amino Transferase < 8 U/L (0-34); BUN/Creatinine Ratio 25 Ratio (12-20); Bilirubin,Total 0.6 mg/dL (0.3-1.2); Blood Urea Nitrogen 15 mg/dL (9-23); Calcium (Corrected) 8.4 mg/dL (8.5-10.1); Carbon Dioxide 25.4 mMol/L (20.0-31.0); Chloride 107 mMol/L (98-107); Creatinine (Component) 0.6 mg/dL (0.6-1.3); Globulin 1.7 gm/dL (2.3-3.5); Glucose 122 mg/dL (74-106); Osmolality,Calculated 284 (275-295); Potassium 3.5 mMol/L (3.4-5.1); Sodium 142 mMol/L (136-145); Total Protein 5.2 gm/dL (5.7-8.2); eGFR > 60 See Note
--- NOTE | 2024-12-12 19:08 | CTCFLWUP_ITS ---
Patient: BASHIR RDZ : 1950 Page 2 of 4 FOLLOW UP NOTE DATE OF SERVICE: 11/18/2024 NAME: BASHIR RDZ ACCOUNT: [id number] : 1950 AGE: 74 INTERVAL HISTORY: Patient is here to follow up. Getting chemo at [facility] . 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 - presented initially with right sided upper abdominal/ rib pain - CT C/A/P from outside facility showed right axillary lymphadenopathy, 16 mm retro-areolar breast mass with thickening of the right chest wall, numerous pulmonary nodules, 16 mm splenic leSIon, - Unden/vent colonoscopy which showed large, partially obstructing mass in sigmoid colon .biopsy or right breast mass/ axilla. 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 MYC-IGH, BCLZ. BCL6 rearrangements present by FISH. Ki-67 moderately h gh, 70-80%. 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 acyclovir - 200 mg As directed 2. allopurinol - 300 mg Daily 3. Claritin - 10 mg Daily 4. fluconazole - 200 mg Daily 5. hydralazine - 500 mg Daily 6. hydrocodone-acetaminophen - 5-325 mg 1 tab Daily 7. levofloxacin - 50 mg Three times a day 8. potassium chloride - 20 mEq 60 meq Daily 9. Protonix - 40 mg 1 tab Daily 10. sulfamethoxazole - 160 mg As directed Medications Last Reconciled by Ana Clement MA on 11/18/2024 ALLERGIES: REVIEW OF SYSTEMS: A complete 14-point review of systems was performed and is negative except as noted in interval history. PHYSICAL EXAMINATION: VITAL SIGNS: Temperature?97.6, B/P?120/66, Oxygen?Saturation?95% Weight?215?lbs (Change?since?11/17/24:?-1.4?lbs) PAIN: 0 - No pain ECOG Performance Status: 2 - Symptomatic; ambulatory; capable of self-care; >50% of waking hrs. not in bed GENERAL APPEARANCE: Appears well, in no apparent distress, appropriately interactive. HEENT: Normocephalic, no temporal wasting, normal conjunctiva, no scleral icterus, normal hearing, lips without lesions, neck normal range of motion. CARDIOVASCULAR: Not assessed. PULMONARY: Normal respiratory effort, no respiratory distress or use of accessory muscles, speaking in full sentences, no tachypnea. EXTREMITIES: No pedal edema or cyanosis. SKIN: Normal skin appearance. NEUROLOGIC: Alert and oriented x4. PSHYCHIATRIC: Appropriate affect, mood normal, behavior normal, intact thought and speech. LABORATORY DATA: I have personally reviewed and interpreted each of the patient?s relevant lab tests, abnormal findings are below: Date 11/23/24 12/06/24 12/10/24 ??WHITE?BLOOD?COUNT?(Thou/mm3) 21.9?H 0.6?LL 15.6?H ??RED?BLOOD?COUNT?(Miln/mm3) 3.48?L 3.25?L 3.09?L ??HEMOGLOBIN?(gm/dl) 10.1?L 9.4?L 8.9?L ??HEMATOCRIT?(%) 31.4?L 28.6?L 27.4?L ??PLATELET?COUNT?(Thou/mm3) 103?L 100?L 132?L ??NEUTROPHILS?%,?AUTO?(%) 72 22?L 52 ??LYMPH?%,?AUTO?(%) 5?L 62?H 5?L ??NEUTROPHILS,?AUTO?(Thou/mm3) 15.7?H 0.1?L 8.0?H ??GLUCOSE,RANDOM?(mg/dL) ? 122?H ? ??BLOOD?UREA?NITROGEN?(mg/dL) ? 15 ? ??CREATININE?(mg/dL) ? 0.60 ? ??SODIUM?(mmol/L) ? 142 ? ??POTASSIUM?(mmol/L) ? 3.5 ? ??CHLORIDE?(mmol/L) ? 107 ? ??CrCl?(CandG)?(ml/min) ? 125.11 ? ??AST/SGOT?(Unit/L) ? <?8 ? ??ALT/SGPT?(Unit/L) ? 8?L ? ??ALKALINE?PHOSPHATASE?(Unit/L) ? 69 ? ??BILIRUBIN,?TOTAL?(mg/dL) ? 0.6 ? ??PROTEIN?TOTAL?(gm/dl) ? 5.2?L ? ??ALBUMIN,?SERUM?(gm/dl) ? 3.5 ? ??GLOBULIN?(gm/dl) ? 1.7?L ? ??ALBUMIN/GLOBULIN?RATIO ? 2.1 ? ??CALCIUM,?SERUM?(mg/dL) ? 8.0?L ? ??CALCIUM?SERUM?(CORRECTED)?(mg/dL) ? 8.4?L ? ASSESSMENT/PLAN: Diffuse large B-cell lymphoma triple hit Patient is on treatment with dosages adjusted R-EPOCH and intrathecal chemotherapy for BAND SINGER prophylaxis Completed cycle 2 Patient needs as on cardiotoxc chemotherapy Will also do studies to evaluate anemia ORDERS: Order # Description [id number] Comprehensive Metabolic Panel - 12 + CBC with Auto Diff [id number] Ferritin + Iron Panel + Vitamin B-12 + Folic Acid; Serum + Reticulocyte Count + Assay Of Haptoglobin Quant + Lactate Dehydrogenase (LDH) RETURN TO CLINIC: 2 weeks BILLING AND COMPLIANCE: I reviewed external records from providers outside my specialty as summarized above. I spent a total of 50 minutes on this patient?s care on the day of their visit excluding time spent related to any billed procedures. This time includes time spent with the patient as well as time spent documenting in the medical record, reviewing patients records and tests, obtaining history, placing orders, communicating with other healthcare professionals, counseling the patient, family or caregiver, and/or care coordination for the diagnoses above. Electronically Signed by: Yvon Mclean MD T: 7:06 PM CC: PCP: Yvon Mclean Referring: Preston Ny This document was completed utilizing speech recognition software. Grammatical errors, random word insertions, pronoun errors, and incomplete sentences are an occasional consequence of this system due to software limitations, ambient noise, and hardware issues. Any formal questions or concerns about the content, text or information contained within the body of this dictation should be directly addressed to the provider for clarification.
== END 2024-12-06 23:59 | disposition home or self-care (01) ==
LOC: SCTC 14:38
PROVIDERS: PCP Physician Assistant; Referring Provider Physician Assistant; Visit Provider Internal Medicine Hematology & Oncology
DX: C83.38 Diffuse large B-cell lymphoma, lymph nodes of multiple sites (principal); R53.0 Neoplastic (malignant) related fatigue
CPT/HCPCS: 36591; 80053; 82607; 82728; 82746; 83010; 83540; 83550; 83615; 85025; 85046; 96360; 99212; A4216; J1642; J7030; G0463

== ENCOUNTER 2025-01-05 08:34 | Outpatient (RCR) | payer OTHER, MEDICAID, SELFPAY ==
[2024-12-10 09:20] LABS: Basophils # (Auto) 0.1 Thou/mm3 (0.0-0.2); Basophils % (Auto) 1 % (0-2.5); Eosinophils # (Auto) 0.1 Thou/mm3 (0.0-0.5); Eosinophils % (Auto) 0 % (0-10); Hematocrit 27.4 % (36.0-46.0); Hemoglobin 8.9 g/dL (12.0-16.0); Immature Granulocytes % (Auto) 27 % (0-0); Immature Granulocytes Auto 4.24 Thou/mm3 (0.00-0.00); Lymphocytes # (Auto) 0.8 Thou/mm3 (1.0-4.8); Lymphocytes % (Auto) 5 % (10-50); Mean Corpuscular HGB Conc 32.5 g/dl (31.0-37.0); Mean Corpuscular Hemoglobin 28.8 pg (25.0-35.0); Mean Corpuscular Volume 89 fL (80-100); Monocytes # (Auto) 2.3 Thou/mm3 (0.0-0.8); Monocytes % (Auto) 15 % (0-12); Neutrophils % (Auto) 52 % (37-80); Nucleated Red Blood Cell # 0.06 Thou/mm3 (0.00-0.00); Nucleated Red Blood Cell % 0 /100 WBC (0); Platelet Count 132 Thou/mm3 (140-440); RDW Standard Deviation 53.5 fL (36.4-46.3); Red Blood Count 3.09 Miln/mm3 (4.00-5.20); White Blood Count 15.6 Thou/mm3 (3.6-11.0)
[2024-12-10 15:23] LABS: Band Neutrophils (Manual) 9 % (0-6); Basophils (Manual) 2 % (0-2); Lymphocytes (Manual) 3 % (20-44); Metamyelocytes (Manual) 4 % (0-0); Monocytes (Manual) 2 % (2-9); Myelocytes (Manual) 6 % (0-0); Neutrophils (Manual) 74 % (50-70)
[2024-12-15 12:00] LABS: Basophils # (Auto) 0.1 Thou/mm3 (0.0-0.2); Basophils % (Auto) 1 % (0-2.5); Eosinophils % (Auto) 0 % (0-10); Hematocrit 28.5 % (36.0-46.0); Hemoglobin 9.1 g/dL (12.0-16.0); Immature Granulocytes % (Auto) 10 % (0-0); Immature Granulocytes Auto 1.06 Thou/mm3 (0.00-0.00); Lymphocytes # (Auto) 0.7 Thou/mm3 (1.0-4.8); Lymphocytes % (Auto) 7 % (10-50); Mean Corpuscular HGB Conc 31.9 g/dl (31.0-37.0); Mean Corpuscular Hemoglobin 28.7 pg (25.0-35.0); Mean Corpuscular Volume 90 fL (80-100); Monocytes # (Auto) 1.2 Thou/mm3 (0.0-0.8); Monocytes % (Auto) 11 % (0-12); Neutrophils # (Auto) 7.5 Thou/mm3 (1.8-7.7); Neutrophils % (Auto) 71 % (37-80); Nucleated Red Blood Cell % 0 /100 WBC (0); Platelet Count 236 Thou/mm3 (140-440); RDW Standard Deviation 57.1 fL (36.4-46.3); Red Blood Count 3.17 Miln/mm3 (4.00-5.20); White Blood Count 10.6 Thou/mm3 (3.6-11.0)
[2024-12-15 12:21] LABS: Alanine Aminotransferase 10 U/L (10-49); Albumin, Serum 3.9 gm/dL (3.4-4.8); Albumin/Globulin Ratio 2.2 (1.2-2.2); Alkaline Phosphatase 104 U/L (46-116); Anion Gap 10 (7-16); Aspartate Amino Transferase 12 U/L (0-34); BUN/Creatinine Ratio 19 Ratio (12-20); Bilirubin,Total 0.4 mg/dL (0.3-1.2); Blood Urea Nitrogen 13 mg/dL (9-23); Calcium 8.9 mg/dL (8.3-10.6); Carbon Dioxide 26.2 mMol/L (20.0-31.0); Chloride 108 mMol/L (98-107); Creatinine (Component) 0.7 mg/dL (0.6-1.3); Globulin 1.8 gm/dL (2.3-3.5); Glucose 110 mg/dL (74-106); Osmolality,Calculated 287 (275-295); Potassium 3.4 mMol/L (3.4-5.1); Sodium 144 mMol/L (136-145); Total Protein 5.7 gm/dL (5.7-8.2); eGFR > 60 See Note
[2024-12-15 15:14] LABS: Band Neutrophils (Manual) 3 % (0-6); Lymphocytes (Manual) 3 % (20-44); Monocytes (Manual) 3 % (2-9); Neutrophils (Manual) 91 % (50-70)
[2024-12-24 11:43] LABS: Basophils # (Auto) 0.2 Thou/mm3 (0.0-0.2); Basophils % (Auto) 0 % (0-2.5); Eosinophils # (Auto) 0.2 Thou/mm3 (0.0-0.5); Eosinophils % (Auto) 1 % (0-10); Hematocrit 27.2 % (36.0-46.0); Immature Granulocytes % (Auto) 9 % (0-0); Lymphocytes # (Auto) 0.4 Thou/mm3 (1.0-4.8); Lymphocytes % (Auto) 1 % (10-50); Mean Corpuscular HGB Conc 33.1 g/dl (31.0-37.0); Mean Corpuscular Hemoglobin 29.4 pg (25.0-35.0); Mean Corpuscular Volume 89 fL (80-100); Monocytes % (Auto) 0 % (0-12); Neutrophils # (Auto) 38.1 Thou/mm3 (1.8-7.7); Neutrophils % (Auto) 90 % (37-80); Nucleated Red Blood Cell % 0 /100 WBC (0); Platelet Count 325 Thou/mm3 (140-440); RDW Standard Deviation 54.2 fL (36.4-46.3); Red Blood Count 3.06 Miln/mm3 (4.00-5.20)
[2024-12-24 11:53] LABS: White Blood Count 42.6 Thou/mm3 (3.6-11.0)
[2024-12-24 12:07] LABS: Alanine Aminotransferase 20 U/L (10-49); Albumin, Serum 3.5 gm/dL (3.4-4.8); Albumin/Globulin Ratio 2.3 (1.2-2.2); Alkaline Phosphatase 81 U/L (46-116); Anion Gap 10 (7-16); Aspartate Amino Transferase 12 U/L (0-34); BUN/Creatinine Ratio 38 Ratio (12-20); Bilirubin,Total 0.5 mg/dL (0.3-1.2); Blood Urea Nitrogen 23 mg/dL (9-23); Calcium 8.8 mg/dL (8.3-10.6); Calcium (Corrected) 9.2 mg/dL (8.5-10.1); Carbon Dioxide 28.2 mMol/L (20.0-31.0); Chloride 106 mMol/L (98-107); Creatinine (Component) 0.6 mg/dL (0.6-1.3); Globulin 1.5 gm/dL (2.3-3.5); Glucose 142 mg/dL (74-106); Osmolality,Calculated 292 (275-295); Potassium 3.4 mMol/L (3.4-5.1); Sodium 144 mMol/L (136-145); eGFR > 60 See Note
[2024-12-24 14:21] LABS: Path Review Blood Smear Sent to Pathologist
[2024-12-29 15:06] LABS: Basophils # (Auto) 0.1 Thou/mm3 (0.0-0.2); Basophils % (Auto) 1 % (0-2.5); Eosinophils % (Auto) 1 % (0-10); Hematocrit 23.6 % (36.0-46.0); Immature Granulocytes % (Auto) 14 % (0-0); Immature Granulocytes Auto 0.52 Thou/mm3 (0.00-0.00); Lymphocytes # (Auto) 0.5 Thou/mm3 (1.0-4.8); Lymphocytes % (Auto) 13 % (10-50); Mean Corpuscular HGB Conc 32.6 g/dl (31.0-37.0); Mean Corpuscular Hemoglobin 29.1 pg (25.0-35.0); Mean Corpuscular Volume 89 fL (80-100); Monocytes # (Auto) 0.8 Thou/mm3 (0.0-0.8); Monocytes % (Auto) 21 % (0-12); Neutrophils # (Auto) 1.9 Thou/mm3 (1.8-7.7); Neutrophils % (Auto) 51 % (37-80); Nucleated Red Blood Cell # 0.28 Thou/mm3 (0.00-0.00); Nucleated Red Blood Cell % 7 /100 WBC (0); RDW Standard Deviation 55.6 fL (36.4-46.3); Red Blood Count 2.65 Miln/mm3 (4.00-5.20); White Blood Count 3.8 Thou/mm3 (3.6-11.0)
[2024-12-29 15:14] LABS: Alanine Aminotransferase 13 U/L (10-49); Albumin, Serum 3.7 gm/dL (3.4-4.8); Albumin/Globulin Ratio 2.2 (1.2-2.2); Alkaline Phosphatase 79 U/L (46-116); Anion Gap 12 (7-16); Aspartate Amino Transferase 16 U/L (0-34); BUN/Creatinine Ratio 11 Ratio (12-20); Bilirubin,Total 0.5 mg/dL (0.3-1.2); Blood Urea Nitrogen 8 mg/dL (9-23); Calcium 8.7 mg/dL (8.3-10.6); Calcium (Corrected) 8.9 mg/dL (8.5-10.1); Carbon Dioxide 24.8 mMol/L (20.0-31.0); Chloride 108 mMol/L (98-107); Creatinine (Component) 0.7 mg/dL (0.6-1.3); Globulin 1.7 gm/dL (2.3-3.5); Glucose 122 mg/dL (74-106); Hemoglobin 7.7 g/dL (12.0-16.0); Osmolality,Calculated 288 (275-295); Platelet Count 59 Thou/mm3 (140-440); Potassium 3.2 mMol/L (3.4-5.1); Sodium 145 mMol/L (136-145); Total Protein 5.4 gm/dL (5.7-8.2); eGFR > 60 See Note
[2024-12-29 16:09] LABS: Slide Review Platelets confirmed
[2025-01-03 10:15] LABS: Basophils # (Auto) 0.1 Thou/mm3 (0.0-0.2); Basophils % (Auto) 1 % (0-2.5); Eosinophils % (Auto) 0 % (0-10); Hematocrit 28.9 % (36.0-46.0); Hemoglobin 9.2 g/dL (12.0-16.0); Immature Granulocytes % (Auto) 22 % (0-0); Immature Granulocytes Auto 2.64 Thou/mm3 (0.00-0.00); Lymphocytes # (Auto) 0.7 Thou/mm3 (1.0-4.8); Lymphocytes % (Auto) 6 % (10-50); Mean Corpuscular HGB Conc 31.8 g/dl (31.0-37.0); Mean Corpuscular Hemoglobin 29.7 pg (25.0-35.0); Mean Corpuscular Volume 93 fL (80-100); Monocytes # (Auto) 1.7 Thou/mm3 (0.0-0.8); Monocytes % (Auto) 15 % (0-12); Neutrophils # (Auto) 6.8 Thou/mm3 (1.8-7.7); Neutrophils % (Auto) 57 % (37-80); Nucleated Red Blood Cell # 0.07 Thou/mm3 (0.00-0.00); Nucleated Red Blood Cell % 1 /100 WBC (0); Platelet Count 140 Thou/mm3 (140-440); RDW Standard Deviation 60.9 fL (36.4-46.3)
[2025-01-03 10:21] LABS: Alanine Aminotransferase 11 U/L (10-49); Albumin, Serum 3.8 gm/dL (3.4-4.8); Albumin/Globulin Ratio 2.4 (1.2-2.2); Alkaline Phosphatase 101 U/L (46-116); Anion Gap 11 (7-16); Aspartate Amino Transferase 15 U/L (0-34); BUN/Creatinine Ratio 10 Ratio (12-20); Bilirubin,Total 0.5 mg/dL (0.3-1.2); Blood Urea Nitrogen 10 mg/dL (9-23); Calcium (Corrected) 8.2 mg/dL (8.5-10.1); Carbon Dioxide 27.5 mMol/L (20.0-31.0); Chloride 110 mMol/L (98-107); Globulin 1.6 gm/dL (2.3-3.5); Glucose 108 mg/dL (74-106); Osmolality,Calculated 294 (275-295); Potassium 2.9 mMol/L (3.4-5.1); Sodium 148 mMol/L (136-145); Total Protein 5.4 gm/dL (5.7-8.2); eGFR 59 See Note
[2025-01-05 09:52] LABS: Basophils # (Auto) 0.1 Thou/mm3 (0.0-0.2); Basophils % (Auto) 1 % (0-2.5); Eosinophils % (Auto) 0 % (0-10); Hematocrit 28.6 % (36.0-46.0); Hemoglobin 9.2 g/dL (12.0-16.0); Immature Granulocytes % (Auto) 9 % (0-0); Immature Granulocytes Auto 0.98 Thou/mm3 (0.00-0.00); Lymphocytes # (Auto) 0.6 Thou/mm3 (1.0-4.8); Lymphocytes % (Auto) 5 % (10-50); Mean Corpuscular HGB Conc 32.2 g/dl (31.0-37.0); Mean Corpuscular Hemoglobin 30.2 pg (25.0-35.0); Mean Corpuscular Volume 94 fL (80-100); Monocytes # (Auto) 1.3 Thou/mm3 (0.0-0.8); Monocytes % (Auto) 12 % (0-12); Neutrophils # (Auto) 8.1 Thou/mm3 (1.8-7.7); Neutrophils % (Auto) 73 % (37-80); Nucleated Red Blood Cell # 0.03 Thou/mm3 (0.00-0.00); Nucleated Red Blood Cell % 0 /100 WBC (0); Platelet Count 200 Thou/mm3 (140-440); RDW Standard Deviation 62.5 fL (36.4-46.3); Red Blood Count 3.05 Miln/mm3 (4.00-5.20)
[2025-01-05 10:20] LABS: Alanine Aminotransferase 11 U/L (10-49); Albumin, Serum 3.8 gm/dL (3.4-4.8); Albumin/Globulin Ratio 2.2 (1.2-2.2); Alkaline Phosphatase 104 U/L (46-116); Anion Gap 11 (7-16); Aspartate Amino Transferase 13 U/L (0-34); BUN/Creatinine Ratio 14 Ratio (12-20); Bilirubin,Total 0.4 mg/dL (0.3-1.2); Blood Urea Nitrogen 10 mg/dL (9-23); Calcium (Corrected) 8.2 mg/dL (8.5-10.1); Carbon Dioxide 26.3 mMol/L (20.0-31.0); Chloride 111 mMol/L (98-107); Creatinine (Component) 0.7 mg/dL (0.6-1.3); Globulin 1.7 gm/dL (2.3-3.5); Glucose 126 mg/dL (74-106); Osmolality,Calculated 295 (275-295); Potassium 3.3 mMol/L (3.4-5.1); Sodium 148 mMol/L (136-145); Total Protein 5.5 gm/dL (5.7-8.2); eGFR > 60 See Note
== END 2025-01-05 23:59 | disposition home or self-care (01) ==
LOC: SCTC 08:34
PROVIDERS: PCP Internal Medicine Hematology; Referring Provider Internal Medicine Hematology; Visit Provider Internal Medicine Hematology & Oncology
DX: C83.38 Diffuse large B-cell lymphoma, lymph nodes of multiple sites (principal); D64.9 Anemia, unspecified
CPT/HCPCS: 36430; 36591; 80053; 85025; 86850; 86900; 86901; 86923; 96360; 96361; A4216; J1642; J7030; J7040; P9016

== ENCOUNTER 2025-01-22 11:48 | Emergency (ER) | payer OTHER, MEDICAID, SELFPAY ==
[2025-01-22 12:54] VITALS: BP 123/75; PULSE 99; RESP 20; TEMP 36.8; O2SAT 99; BMI 40.1
--- NOTE | 2025-01-22 13:08 | XR_ITS ---
Examination: Abdomen AP single view Technique: AP portable supine abdomen, single view Exam date and time: January 22, 2025 1332 hrs. Indications: Constipation beginning one week ago. Findings: Large amounts of stool throughout the colon No obstruction No free air Impression: Large amounts of stool throughout the colon
--- NOTE | 2025-01-22 13:09 | PD.EDRME ---
Rapid Medical Screening Exam RME Arrival date/time: 01/22/25 11:48 This is a 74-year-old female that comes in with complaints of constipation and abdominal discomfort. Patient states she had her chemotherapy done approximately 5 days ago. Patient states that every time after her chemotherapy she typically has low energy, does not want to eat and drink very much, and sometimes gets constipated. Patient's states she is very bloated. Patient reports that her cancer is leukemia she thinks. Patient also has a history of high blood pressure, hyperlipidemia. Patient states that she feels like she cannot urinate sometimes. Patient denies dysuria. I have greeted and performed a focused initial assessment of this patient. Initial appropriate labs ordered at this time. A comprehensive ED assessment and evaluation of the patient and analysis of all test and completion of medical decision making process will be conducted by additional ED provider. Chief Complaint: Abdominal Pain Time Seen by Provider: 01/22/25 12:22 Vital signs: Vital Signs Temperature 98.2 F 01/22/25 12:54 Pulse Rate 99 01/22/25 12:54 Respiratory Rate 20 01/22/25 12:54 Blood Pressure 123/75 01/22/25 12:54 Pulse Oximetry (%) 99 01/22/25 12:54 Oxygen Delivery Method Room Air 01/22/25 12:54
[2025-01-22 13:58] LABS: Basophils % (Auto) 1 % (0-2.5); Eosinophils # (Auto) 0.1 Thou/mm3 (0.0-0.5); Eosinophils % (Auto) 7 % (0-10); Hematocrit 27.6 % (36.0-46.0); Hemoglobin 9.3 g/dL (12.0-16.0); Immature Granulocytes % (Auto) 6 % (0-0); Immature Granulocytes Auto 0.04 Thou/mm3 (0.00-0.00); Lymphocytes # (Auto) 0.3 Thou/mm3 (1.0-4.8); Lymphocytes % (Auto) 48 % (10-50); Mean Corpuscular HGB Conc 33.7 g/dl (31.0-37.0); Mean Corpuscular Hemoglobin 30.9 pg (25.0-35.0); Mean Corpuscular Volume 92 fL (80-100); Monocytes # (Auto) 0.1 Thou/mm3 (0.0-0.8); Monocytes % (Auto) 16 % (0-12); Neutrophils # (Auto) 0.2 Thou/mm3 (1.8-7.7); Neutrophils % (Auto) 22 % (37-80); Nucleated Red Blood Cell % 0 /100 WBC (0); RDW Standard Deviation 54.5 fL (36.4-46.3); Red Blood Count 3.01 Miln/mm3 (4.00-5.20)
[2025-01-22 14:09] LABS: Alanine Aminotransferase 12 U/L (10-49); Albumin, Serum 4.2 gm/dL (3.4-4.8); Albumin/Globulin Ratio 2.3 (1.2-2.2); Alkaline Phosphatase 85 U/L (46-116); Anion Gap 10 (7-16); Aspartate Amino Transferase < 10 U/L (0-34); BUN/Creatinine Ratio 11 Ratio (12-20); Bilirubin,Total 0.9 mg/dL (0.3-1.2); Blood Urea Nitrogen 8 mg/dL (9-23); Calcium 8.8 mg/dL (8.3-10.6); Calcium (Corrected) 8.8 mg/dL (8.5-10.1); Carbon Dioxide 27.3 mMol/L (20.0-31.0); Chloride 106 mMol/L (98-107); Creatinine (Component) 0.7 mg/dL (0.6-1.3); Globulin 1.8 gm/dL (2.3-3.5); Glucose 171 mg/dL (74-106); Lipase 23 U/L (12-53); Osmolality,Calculated 287 (275-295); Potassium 4.1 mMol/L (3.4-5.1); Sodium 143 mMol/L (136-145); eGFR > 60 See Note
[2025-01-22 14:10] LABS: Platelet Count 59 Thou/mm3 (140-440); White Blood Count 0.7 Thou/mm3 (3.6-11.0)
[2025-01-22 14:32] LABS: Slide Review Platelets confirmed
--- NOTE | 2025-01-22 15:43 | PD.EDADULT ---
ED General RME/HPI General Chief complaint: Abdominal Pain Stated complaint: CONSTIPATED X 1 WEEK Time Seen by Provider: 01/22/25 12:22 Arrival date/time: 01/22/25 11:48 RME / HPI RME / HPI narrative: 01/22/25 11:48 This is a 74-year-old female that comes in with complaints of constipation and abdominal discomfort. Patient states she had her chemotherapy done approximately 5 days ago. Patient states that every time after her chemotherapy she typically has low energy, does not want to eat and drink very much, and sometimes gets constipated. Patient's states she is very bloated. Patient reports that her cancer is leukemia she thinks. Patient also has a history of high blood pressure, hyperlipidemia. Patient states that she feels like she cannot urinate sometimes. Patient denies dysuria. I have greeted and performed a focused initial assessment of this patient. Initial appropriate labs ordered at this time. A comprehensive ED assessment and evaluation of the patient and analysis of all test and completion of medical decision making process will be conducted by additional ED provider. DR. BECERRA MAIN ED EVALUATION: 74 y/o female with Hx of Diffuse Large B-Cell Lymphoma presents to ED c/o constipation and is requesting fecal disimpaction s/p chemotherapy x 10 days ago. Patient receives systemic chemotherapy and spinal chemotherapy. Patient was given both a powder and liquid laxative. Laxatives taken this morning without production of stool, but is passing gas. Denies any fever. No other other concerns or complaints expressed at this time. Related Data Previous Rx's ?Medication ?Instructions ?Recorded amlodipine 5 mg tablet 5 mg PO QDAY #30 tabs 09/30/24 atorvastatin 20 mg tablet 20 mg PO HS #30 tabs 09/30/24 lisinopril 40 mg tablet 40 mg PO QDAY #30 tabs 09/30/24 melatonin 3 mg tablet 3 mg PO HS PRN Sleep #30 tabs 09/30/24 pantoprazole 40 mg tablet,delayed 40 mg PO QDAY #14 tabs 09/30/24 release (Protonix) blood pressure monitor (Blood #1 ea 10/01/24 Pressure Kit) mineral oil (Uiwov-Ck-Tyn Enema 118 ml RI QDAY PRN constipation 01/22/25 (mineral oil)) #133 mL Allergies Allergy/AdvReac Type Severity Reaction Status Date / Time No Known Allergies Allergy Verified 01/22/25 11:51 Review of Systems Review of Systems Systems Reviewed: All systems reviewed, normal except as documented Narrative Review of Systems: Gen: No fever, no chills, no weight loss EYES: No discharge, no visual changes, no pain HEENT: No ear pain, no congestion, no sore throat PULM: No shortness of breath, no cough, no congestion CV: No chest pain, no dyspnea on exertion, no palpitations GI: Positive constipation, no nausea, no vomiting, no diarrhea, no pain : No frequency, no urgency, no dysuria Musc/skel: No joint pain, no back pain Skin: No rash Psyc: No hallucinations, no depression Heme/Lymph: No easy bleeding or bruising tendencies Neuro: No weakness, no headache Past Medical History Family History FAMILY HISTORY: Positive Family Cancer (pt's mom throat cancer) Social History SUBSTANCE USE: former substance user ED Exam Narrative Physical exam: GENERAL APPEARANCE: AxOx4, generally well-appearing, no acute distress. HEENT: NC, AT. MMM. EOMI, clear conjunctiva, oropharynx clear. NECK: Supple without lymphadenopathy. No stiffness or restricted ROM. HEART: Normal rate and regular rhythm, normal S1/S1, no m/r/g LUNGS: CTAB, moving air well. No crackles or wheezes are heard. ABDOMEN: Soft, nontender, nondistended with good bowel sounds heard. RECTAL: With 1 finger placed into the rectum I was able to identify a fist-sized fecal impaction. BACK: No midline C/T/L spine pain or deformity, No CVAT, no obvious deformity. EXTREMITIES: Without cyanosis, clubbing or edema. MUSCULOSKELETAL: FROM of all major joints, no chest tenderness NEUROLOGICAL: Grossly nonfocal. Alert and oriented, moving all 4 extremities. CN not formally tested but appear grossly intact. Observed to ambulate with normal gait. Skin: Warm and dry without any rash. Course Quality Measures none Orders Category Date Time Status KUB [XR abdomen 1V] Stat Exams 01/22/25 13:08 Completed CBC Stat Lab 01/22/25 13:30 Completed Comprehensive Metabolic Panel Stat Lab 01/22/25 13:30 Completed Lipase Stat Lab 01/22/25 13:30 Completed Vital Signs Vital signs: Vital Signs Temperature 98.2 F 01/22/25 12:54 Pulse Rate 99 01/22/25 12:54 Respiratory Rate 20 01/22/25 12:54 Blood Pressure 123/75 01/22/25 12:54 Pulse Oximetry (%) 99 01/22/25 12:54 Oxygen Delivery Method Room Air 01/22/25 12:54 Discharge Plan Plan Patient Disposition: HOME (Self Care) Prescriptions/Referrals Prescriptions/Med Rec: New mineral oil [Hwojq-Xt-Quy Enema (min oil)] Enema 118 ml RI QDAY PRN (Reason: constipation) Qty: 133 2RF Rx Instructions: discard any unused portion No Action atorvastatin 20 mg Tablet 20 mg PO HS Qty: 30 0RF amlodipine 5 mg Tablet 5 mg PO QDAY Qty: 30 0RF lisinopril 40 mg tablet 40 mg PO QDAY Qty: 30 0RF melatonin 3 mg Tablet 3 mg PO HS PRN (Reason: Sleep) Qty: 30 0RF pantoprazole [Protonix] 40 mg tablet,delayed release (DR/EC) 40 mg PO QDAY Qty: 14 0RF (DME) blood pressure monitor [Blood Pressure Kit] Kit See Rx Instructions .Route Qty: 1 0RF Rx Instructions: As directed Referrals: Barbara Parekh FNP-C [Primary Care Provider] - In 1 week Problem List Clinical Impression: Fecal impaction in rectum, Neutropenia Patient/Caregiver Discharge Instructions Education Materials: Neutropenia, ED Constipation (Adult) Additional Instructions: You have an impaction of stool in your rectum that will not be able to removed today due to your low blood counts. I recommend a home alternative with enemas. Mineral oil enema prescription has been sent to the pharmacy, but you can also use [id number] fleets enema. Please do it first thing on arrival home today. You can continues as needed for the next 2 to 3 days, and if still not improving you can return to the emergency department. Follow-up with your oncologist, contact her Friday concerning your low blood counts. Print Language: Micronesian Stand Alone Forms: Jennifer Award Info., Patient Portal Info Letter MDM Narrative MDM hospital course (for use when minimal MDM required): Ms. Cardoso presents with physical exam consistent with fecal impaction. I did a very gentle rectal exam, where she already had slight rectal dilatation due to an obvious fecal bolus. I was able to get a slight assessment of the size of the fecal bolus with my finger without causing any rectal trauma. It is quite large and will require several digits to break up and manipulate and is to be concerning for possible rectal trauma that would result. There appears to be a subacute development in this issue, where progressively more constipated since starting chemotherapy. Unfortunately she is very neutropenic here today and have advised her that we are unable to do a fecal disimpaction due to risks of trauma to the rectal area and possible bacterial introduction as result. She has not tried enema administration of given her regimen of enemas to try at home, if not improved in 2 to 3 days she can return to the emergency department for reassessment to see whether or not she would be candidate for fecal disimpaction at that time. Scribe Attestation: I, Ana Medina, am scribing for and in the presence of Dr. Becerra. Provider Notation: Although this document has been carefully reviewed, there may still be some phonetic and other typographical errors.? These errors are purely grammatical due to imperfections in the software program and should not be construed in any way to? compromise the substance of the patient's medical care during this visit. By placing one gloved finger into the rectum, I identified a fist-sized fecal impaction. Rectal disimpaction cannot be performed without causing any trauma due to large size of fecal impaction. Patient will be advised to F/U with Dr. Mclean for further evaluation and treatment. Clinical Information Provided by: patient Medical Records reviewed [facility] ( Reviewed prior ED records from 09/26/24. Patient was seen for Mass of colon.) Meds/Rx considered, not ordered None Labs/Rad/Tests considered, not ordered None Chronic Illness/Social Conditions which may negatively complicate care or outcome(s)-explain: Cancer EKG EKG not done Labs Labs: interpreted by me and see narrative above Lab(s) Interpretation(s): RADIOLOGY Patient: BASHIR RDZ. Record#: [id number] Birthdate: 1950 Age/Sex: 74 / F Location: [facility] Attending Dr: Ordering Physician: Laura Monsivais NP Date of Service: 01/22/25 Procedure(s): XR abdomen 1V Accession Number(s): [id number] cc: Barbara Parekh; Adiel Monroy MD; Laura Monsivais NP~ Examination: Abdomen AP single view Technique: AP portable supine abdomen, single view Exam date and time: January 22, 2025 1332 hrs. Indications: Constipation beginning one week ago. Findings: Large amounts of stool throughout the colon No obstruction No free air Impression: Large amounts of stool throughout the colon Dictated By: Adiel Monroy MD Signed By: <Electronically signed by Adiel Monroy MD in OV> 01/22/25 1435 Imaging Imaging interpretation: interpreted by me and see narrative above Medication Administration(s) none Diagnosis Differential Diagnosis ED Complaint MDM: small vs large bowel obstruction, constipation, dehydration, mass of colon
== END 2025-01-22 16:11 | disposition home or self-care (01) ==
PROVIDERS: Nurse Practitioner Family; Emergency Provider Emergency Medicine; PCP Nurse Practitioner Family
DX: K59.00 Constipation, unspecified (principal); E78.5 Hyperlipidemia, unspecified
CPT/HCPCS: 36415; 74018; 80053; 81001; 83690; 85025; 99283

== ENCOUNTER 2025-02-03 14:56 | Outpatient (RCR) | payer OTHER, MEDICAID, SELFPAY ==
[2025-01-25 16:19] LABS: Basophils % (Auto) 0 % (0-2.5); Eosinophils # (Auto) 0.1 Thou/mm3 (0.0-0.5); Eosinophils % (Auto) 0 % (0-10); Hematocrit 28.8 % (36.0-46.0); Hemoglobin 9.1 g/dL (12.0-16.0); Immature Granulocytes % (Auto) 13 % (0-0); Immature Granulocytes Auto 2.94 Thou/mm3 (0.00-0.00); Lymphocytes # (Auto) 1.2 Thou/mm3 (1.0-4.8); Lymphocytes % (Auto) 5 % (10-50); Mean Corpuscular HGB Conc 31.6 g/dl (31.0-37.0); Mean Corpuscular Volume 98 fL (80-100); Monocytes # (Auto) 5.6 Thou/mm3 (0.0-0.8); Monocytes % (Auto) 25 % (0-12); Neutrophils % (Auto) 57 % (37-80); Nucleated Red Blood Cell # 0.29 Thou/mm3 (0.00-0.00); Nucleated Red Blood Cell % 1 /100 WBC (0); Platelet Count 101 Thou/mm3 (140-440); RDW Standard Deviation 61.8 fL (36.4-46.3); Red Blood Count 2.94 Miln/mm3 (4.00-5.20); White Blood Count 22.7 Thou/mm3 (3.6-11.0)
[2025-01-25 16:33] LABS: Alanine Aminotransferase 15 U/L (10-49); Albumin, Serum 4.1 gm/dL (3.4-4.8); Albumin/Globulin Ratio 2.4 (1.2-2.2); Alkaline Phosphatase 142 U/L (46-116); Anion Gap 11 (7-16); Aspartate Amino Transferase 21 U/L (0-34); BUN/Creatinine Ratio 17 Ratio (12-20); Bilirubin,Total 0.3 mg/dL (0.3-1.2); Blood Urea Nitrogen 17 mg/dL (9-23); Calcium 8.4 mg/dL (8.3-10.6); Calcium (Corrected) 8.4 mg/dL (8.5-10.1); Carbon Dioxide 25.5 mMol/L (20.0-31.0); Chloride 109 mMol/L (98-107); Globulin 1.7 gm/dL (2.3-3.5); Glucose 149 mg/dL (74-106); Osmolality,Calculated 293 (275-295); Potassium 3.5 mMol/L (3.4-5.1); Sodium 145 mMol/L (136-145); Total Protein 5.8 gm/dL (5.7-8.2); eGFR 59 See Note
[2025-01-27 11:05] LABS: Basophils # (Auto) 0.1 Thou/mm3 (0.0-0.2); Basophils % (Auto) 1 % (0-2.5); Eosinophils # (Auto) 0.1 Thou/mm3 (0.0-0.5); Eosinophils % (Auto) 0 % (0-10); Immature Granulocytes % (Auto) 20 % (0-0); Immature Granulocytes Auto 3.54 Thou/mm3 (0.00-0.00); Lymphocytes # (Auto) 0.8 Thou/mm3 (1.0-4.8); Lymphocytes % (Auto) 4 % (10-50); Mean Corpuscular HGB Conc 32.8 g/dl (31.0-37.0); Mean Corpuscular Hemoglobin 31.2 pg (25.0-35.0); Mean Corpuscular Volume 95 fL (80-100); Monocytes # (Auto) 2.2 Thou/mm3 (0.0-0.8); Monocytes % (Auto) 12 % (0-12); Neutrophils # (Auto) 11.4 Thou/mm3 (1.8-7.7); Neutrophils % (Auto) 63 % (37-80); Nucleated Red Blood Cell # 0.16 Thou/mm3 (0.00-0.00); Nucleated Red Blood Cell % 1 /100 WBC (0); Platelet Count 116 Thou/mm3 (140-440); Red Blood Count 2.63 Miln/mm3 (4.00-5.20)
[2025-01-27 11:07] LABS: Hemoglobin 8.2 g/dL (12.0-16.0)
[2025-01-27 11:16] LABS: Alanine Aminotransferase 12 U/L (10-49); Albumin, Serum 3.7 gm/dL (3.4-4.8); Albumin/Globulin Ratio 2.2 (1.2-2.2); Alkaline Phosphatase 142 U/L (46-116); Anion Gap 9 (7-16); Aspartate Amino Transferase 13 U/L (0-34); BUN/Creatinine Ratio 19 Ratio (12-20); Bilirubin,Total 0.3 mg/dL (0.3-1.2); Blood Urea Nitrogen 15 mg/dL (9-23); Calcium (Corrected) 8.2 mg/dL (8.5-10.1); Chloride 112 mMol/L (98-107); Creatinine (Component) 0.8 mg/dL (0.6-1.3); Globulin 1.7 gm/dL (2.3-3.5); Glucose 132 mg/dL (74-106); Osmolality,Calculated 293 (275-295); Potassium 3.5 mMol/L (3.4-5.1); Sodium 146 mMol/L (136-145); Total Protein 5.4 gm/dL (5.7-8.2); eGFR > 60 See Note
[2025-02-01 16:18] LABS: Basophils % (Auto) 0 % (0-2.5); Eosinophils % (Auto) 0 % (0-10); Hematocrit 25.2 % (36.0-46.0); Immature Granulocytes % (Auto) 4 % (0-0); Immature Granulocytes Auto 0.34 Thou/mm3 (0.00-0.00); Lymphocytes # (Auto) 0.6 Thou/mm3 (1.0-4.8); Lymphocytes % (Auto) 7 % (10-50); Mean Corpuscular HGB Conc 32.1 g/dl (31.0-37.0); Mean Corpuscular Hemoglobin 31.2 pg (25.0-35.0); Mean Corpuscular Volume 97 fL (80-100); Monocytes % (Auto) 13 % (0-12); Neutrophils # (Auto) 5.8 Thou/mm3 (1.8-7.7); Neutrophils % (Auto) 75 % (37-80); Nucleated Red Blood Cell # 0.03 Thou/mm3 (0.00-0.00); Nucleated Red Blood Cell % 0 /100 WBC (0); Platelet Count 315 Thou/mm3 (140-440); RDW Standard Deviation 62.4 fL (36.4-46.3); White Blood Count 7.7 Thou/mm3 (3.6-11.0)
[2025-02-01 16:41] LABS: Hemoglobin 8.1 g/dL (12.0-16.0)
[2025-02-01 16:47] LABS: Alanine Aminotransferase 11 U/L (10-49); Albumin, Serum 3.8 gm/dL (3.4-4.8); Albumin/Globulin Ratio 2.5 (1.2-2.2); Alkaline Phosphatase 108 U/L (46-116); Anion Gap 9 (7-16); Aspartate Amino Transferase 13 U/L (0-34); BUN/Creatinine Ratio 17 Ratio (12-20); Bilirubin,Total 0.3 mg/dL (0.3-1.2); Blood Urea Nitrogen 12 mg/dL (9-23); Calcium 8.3 mg/dL (8.3-10.6); Calcium (Corrected) 8.5 mg/dL (8.5-10.1); Chloride 111 mMol/L (98-107); Creatinine (Component) 0.7 mg/dL (0.6-1.3); Globulin 1.5 gm/dL (2.3-3.5); Glucose 134 mg/dL (74-106); Osmolality,Calculated 295 (275-295); Potassium 3.6 mMol/L (3.4-5.1); Sodium 148 mMol/L (136-145); Total Protein 5.3 gm/dL (5.7-8.2); eGFR > 60 See Note
[2025-02-03 15:45] LABS: Basophils % (Auto) 0 % (0-2.5); Eosinophils % (Auto) 0 % (0-10); Hematocrit 27.5 % (36.0-46.0); Immature Granulocytes % (Auto) 2 % (0-0); Immature Granulocytes Auto 0.12 Thou/mm3 (0.00-0.00); Lymphocytes # (Auto) 0.5 Thou/mm3 (1.0-4.8); Lymphocytes % (Auto) 8 % (10-50); Mean Corpuscular HGB Conc 31.6 g/dl (31.0-37.0); Mean Corpuscular Hemoglobin 31.6 pg (25.0-35.0); Mean Corpuscular Volume 100 fL (80-100); Monocytes # (Auto) 0.9 Thou/mm3 (0.0-0.8); Monocytes % (Auto) 14 % (0-12); Neutrophils # (Auto) 4.9 Thou/mm3 (1.8-7.7); Neutrophils % (Auto) 76 % (37-80); Nucleated Red Blood Cell # 0.03 Thou/mm3 (0.00-0.00); Nucleated Red Blood Cell % 1 /100 WBC (0); Platelet Count 350 Thou/mm3 (140-440); RDW Standard Deviation 65.2 fL (36.4-46.3); Red Blood Count 2.75 Miln/mm3 (4.00-5.20); White Blood Count 6.5 Thou/mm3 (3.6-11.0)
[2025-02-03 16:14] LABS: Alanine Aminotransferase 11 U/L (10-49); Albumin, Serum 3.9 gm/dL (3.4-4.8); Albumin/Globulin Ratio 2.6 (1.2-2.2); Alkaline Phosphatase 90 U/L (46-116); Anion Gap 8 (7-16); Aspartate Amino Transferase 14 U/L (0-34); BUN/Creatinine Ratio 11 Ratio (12-20); Bilirubin,Total 0.3 mg/dL (0.3-1.2); Blood Urea Nitrogen 8 mg/dL (9-23); Calcium 8.7 mg/dL (8.3-10.6); Calcium (Corrected) 8.8 mg/dL (8.5-10.1); Carbon Dioxide 27.3 mMol/L (20.0-31.0); Chloride 111 mMol/L (98-107); Creatinine (Component) 0.7 mg/dL (0.6-1.3); Globulin 1.5 gm/dL (2.3-3.5); Glucose 144 mg/dL (74-106); Osmolality,Calculated 291 (275-295); Potassium 3.8 mMol/L (3.4-5.1); Sodium 146 mMol/L (136-145); Total Protein 5.4 gm/dL (5.7-8.2); eGFR > 60 See Note
[2025-02-03 16:38] LABS: Hemoglobin 8.7 g/dL (12.0-16.0)
== END 2025-02-05 23:59 | disposition home or self-care (01) ==
LOC: SCTC 14:56
PROVIDERS: PCP Internal Medicine Hematology; Referring Provider Internal Medicine Hematology; Visit Provider Internal Medicine Hematology & Oncology
DX: C83.38 Diffuse large B-cell lymphoma, lymph nodes of multiple sites (principal)
CPT/HCPCS: 36591; 80053; 85025; 96360; A4216; J1642; J7030; J7040

== ENCOUNTER 2025-03-07 14:30 | Outpatient (RCR) | payer OTHER, MEDICAID, SELFPAY ==
[2025-02-07 16:30] LABS: Basophils % (Auto) 1 % (0-2.5); Eosinophils % (Auto) 0 % (0-10); Hematocrit 27.7 % (36.0-46.0); Hemoglobin 9.1 g/dL (12.0-16.0); Immature Granulocytes % (Auto) 1 % (0-0); Immature Granulocytes Auto 0.03 Thou/mm3 (0.00-0.00); Lymphocytes # (Auto) 0.5 Thou/mm3 (1.0-4.8); Lymphocytes % (Auto) 10 % (10-50); Mean Corpuscular HGB Conc 32.9 g/dl (31.0-37.0); Mean Corpuscular Hemoglobin 31.9 pg (25.0-35.0); Mean Corpuscular Volume 97 fL (80-100); Monocytes # (Auto) 0.7 Thou/mm3 (0.0-0.8); Monocytes % (Auto) 15 % (0-12); Neutrophils # (Auto) 3.4 Thou/mm3 (1.8-7.7); Neutrophils % (Auto) 73 % (37-80); Nucleated Red Blood Cell % 0 /100 WBC (0); Platelet Count 297 Thou/mm3 (140-440); RDW Standard Deviation 63.2 fL (36.4-46.3); Red Blood Count 2.85 Miln/mm3 (4.00-5.20); White Blood Count 4.7 Thou/mm3 (3.6-11.0)
[2025-02-07 16:45] LABS: Alanine Aminotransferase 12 U/L (10-49); Albumin, Serum 4.1 gm/dL (3.4-4.8); Albumin/Globulin Ratio 2.9 (1.2-2.2); Alkaline Phosphatase 97 U/L (46-116); Anion Gap 11 (7-16); Aspartate Amino Transferase 14 U/L (0-34); BUN/Creatinine Ratio 21 Ratio (12-20); Bilirubin,Total 0.3 mg/dL (0.3-1.2); Blood Urea Nitrogen 15 mg/dL (9-23); Calcium 8.4 mg/dL (8.3-10.6); Calcium (Corrected) 8.4 mg/dL (8.5-10.1); Chloride 110 mMol/L (98-107); Creatinine (Component) 0.7 mg/dL (0.6-1.3); Globulin 1.4 gm/dL (2.3-3.5); Glucose 118 mg/dL (74-106); Osmolality,Calculated 297 (275-295); Potassium 3.6 mMol/L (3.4-5.1); Sodium 149 mMol/L (136-145); Total Protein 5.5 gm/dL (5.7-8.2); eGFR > 60 See Note
[2025-02-10 15:38] LABS: Basophils # (Auto) 0.1 Thou/mm3 (0.0-0.2); Basophils % (Auto) 1 % (0-2.5); Eosinophils # (Auto) 0.1 Thou/mm3 (0.0-0.5); Eosinophils % (Auto) 2 % (0-10); Hematocrit 28.6 % (36.0-46.0); Hemoglobin 9.5 g/dL (12.0-16.0); Immature Granulocytes % (Auto) 1 % (0-0); Immature Granulocytes Auto 0.03 Thou/mm3 (0.00-0.00); Lymphocytes # (Auto) 0.6 Thou/mm3 (1.0-4.8); Lymphocytes % (Auto) 13 % (10-50); Mean Corpuscular HGB Conc 33.2 g/dl (31.0-37.0); Mean Corpuscular Hemoglobin 31.8 pg (25.0-35.0); Mean Corpuscular Volume 96 fL (80-100); Monocytes # (Auto) 0.7 Thou/mm3 (0.0-0.8); Monocytes % (Auto) 16 % (0-12); Neutrophils % (Auto) 67 % (37-80); Nucleated Red Blood Cell % 0 /100 WBC (0); Platelet Count 222 Thou/mm3 (140-440); RDW Standard Deviation 60.2 fL (36.4-46.3); Red Blood Count 2.99 Miln/mm3 (4.00-5.20); White Blood Count 4.5 Thou/mm3 (3.6-11.0)
[2025-02-10 15:57] LABS: Alanine Aminotransferase 13 U/L (10-49); Albumin, Serum 4.1 gm/dL (3.4-4.8); Albumin/Globulin Ratio 3.2 (1.2-2.2); Alkaline Phosphatase 95 U/L (46-116); Anion Gap 10 (7-16); Aspartate Amino Transferase 12 U/L (0-34); BUN/Creatinine Ratio 19 Ratio (12-20); Bilirubin,Total 0.4 mg/dL (0.3-1.2); Blood Urea Nitrogen 15 mg/dL (9-23); Carbon Dioxide 26.2 mMol/L (20.0-31.0); Chloride 108 mMol/L (98-107); Creatinine (Component) 0.8 mg/dL (0.6-1.3); Globulin 1.3 gm/dL (2.3-3.5); Glucose 103 mg/dL (74-106); Osmolality,Calculated 287 (275-295); Potassium 3.4 mMol/L (3.4-5.1); Sodium 144 mMol/L (136-145); Total Protein 5.4 gm/dL (5.7-8.2); eGFR > 60 See Note
[2025-02-21 11:31] LABS: Basophils % (Auto) 0 % (0-2.5); Eosinophils # (Auto) 0.3 Thou/mm3 (0.0-0.5); Eosinophils % (Auto) 11 % (0-10); Hematocrit 27.7 % (36.0-46.0); Hemoglobin 9.2 g/dL (12.0-16.0); Immature Granulocytes % (Auto) 0 % (0-0); Immature Granulocytes Auto 0.01 Thou/mm3 (0.00-0.00); Lymphocytes # (Auto) 0.2 Thou/mm3 (1.0-4.8); Lymphocytes % (Auto) 8 % (10-50); Mean Corpuscular HGB Conc 33.2 g/dl (31.0-37.0); Mean Corpuscular Hemoglobin 31.8 pg (25.0-35.0); Mean Corpuscular Volume 96 fL (80-100); Monocytes % (Auto) 0 % (0-12); Neutrophils # (Auto) 2.4 Thou/mm3 (1.8-7.7); Neutrophils % (Auto) 81 % (37-80); Nucleated Red Blood Cell % 0 /100 WBC (0); Platelet Count 102 Thou/mm3 (140-440); Red Blood Count 2.89 Miln/mm3 (4.00-5.20)
[2025-02-21 11:48] LABS: Alanine Aminotransferase 24 U/L (10-49); Albumin, Serum 3.4 gm/dL (3.4-4.8); Albumin/Globulin Ratio 3.1 (1.2-2.2); Alkaline Phosphatase 54 U/L (46-116); Anion Gap 8 (7-16); Aspartate Amino Transferase 19 U/L (0-34); BUN/Creatinine Ratio 30 Ratio (12-20); Bilirubin,Total 0.4 mg/dL (0.3-1.2); Blood Urea Nitrogen 18 mg/dL (9-23); Calcium 7.9 mg/dL (8.3-10.6); Calcium (Corrected) 8.4 mg/dL (8.5-10.1); Chloride 104 mMol/L (98-107); Creatinine (Component) 0.6 mg/dL (0.6-1.3); Globulin 1.1 gm/dL (2.3-3.5); Glucose 143 mg/dL (74-106); Osmolality,Calculated 288 (275-295); Potassium 3.4 mMol/L (3.4-5.1); Sodium 143 mMol/L (136-145); Total Protein 4.5 gm/dL (5.7-8.2); eGFR > 60 See Note
[2025-03-07 15:14] LABS: Basophils % (Auto) 1 % (0-2.5); Eosinophils % (Auto) 0 % (0-10); Hematocrit 28.9 % (36.0-46.0); Hemoglobin 9.4 g/dL (12.0-16.0); Immature Granulocytes % (Auto) 4 % (0-0); Immature Granulocytes Auto 0.28 Thou/mm3 (0.00-0.00); Lymphocytes # (Auto) 0.7 Thou/mm3 (1.0-4.8); Lymphocytes % (Auto) 11 % (10-50); Mean Corpuscular HGB Conc 32.5 g/dl (31.0-37.0); Mean Corpuscular Hemoglobin 32.1 pg (25.0-35.0); Mean Corpuscular Volume 99 fL (80-100); Monocytes % (Auto) 14 % (0-12); Neutrophils # (Auto) 4.9 Thou/mm3 (1.8-7.7); Neutrophils % (Auto) 71 % (37-80); Nucleated Red Blood Cell % 0 /100 WBC (0); Platelet Count 315 Thou/mm3 (140-440); RDW Standard Deviation 52.2 fL (36.4-46.3); Red Blood Count 2.93 Miln/mm3 (4.00-5.20); White Blood Count 6.9 Thou/mm3 (3.6-11.0)
[2025-03-07 15:43] LABS: Alanine Aminotransferase 10 U/L (10-49); Albumin/Globulin Ratio 2.4 (1.2-2.2); Alkaline Phosphatase 98 U/L (46-116); Anion Gap 7 (7-16); Aspartate Amino Transferase 11 U/L (0-34); BUN/Creatinine Ratio 23 Ratio (12-20); Bilirubin,Total 0.2 mg/dL (0.3-1.2); Blood Urea Nitrogen 14 mg/dL (9-23); Calcium 8.7 mg/dL (8.3-10.6); Calcium (Corrected) 8.7 mg/dL (8.5-10.1); Carbon Dioxide 26.6 mMol/L (20.0-31.0); Chloride 110 mMol/L (98-107); Creatinine (Component) 0.6 mg/dL (0.6-1.3); Globulin 1.7 gm/dL (2.3-3.5); Glucose 102 mg/dL (74-106); Osmolality,Calculated 287 (275-295); Sodium 144 mMol/L (136-145); Total Protein 5.7 gm/dL (5.7-8.2); eGFR > 60 See Note
== END 2025-03-07 23:59 | disposition home or self-care (01) ==
LOC: SCTC 14:30
PROVIDERS: PCP Internal Medicine Hematology; Referring Provider Internal Medicine Hematology; Visit Provider Internal Medicine Hematology & Oncology
DX: C83.38 Diffuse large B-cell lymphoma, lymph nodes of multiple sites (principal)
CPT/HCPCS: 36591; 80053; 85025; 96360; A4216; J1642; J7030

== ENCOUNTER 2025-03-09 11:20 | Emergency (ER) | payer OTHER, MEDICAID, SELFPAY ==
[2025-03-09 11:28] VITALS: BP 91/51; PULSE 60; RESP 16; TEMP 36.7; O2SAT 96
--- NOTE | 2025-03-09 11:36 | EKG_ITS ---
[facility] Test Date: 2025-03-09 Pat Name: BASHIR RDZ Department: Room: - Gender: Female Cra: : 1950 Requested By: Julio C Keane Order Number: [id number] Reading MD: Julio C Keane Measurements Intervals [place]ay Rate: 61 P: 20 WA: 157 QRS: 12 QRSD: 88 T: 47 QT: 428 QTc: 434 Interpretive Statements SINUS RHYTHM No previous ECG available for comparison /store/S0/[id number]/ecg/[id number]
--- NOTE | 2025-03-09 11:36 | EDRME_ITS ---
Rapid Medical Screening Exam [facility] Arrival date/time: 03/09/25 11:20 74-year-old female with a history of hypertension, hyperlipidemia presents to the emergency room with a chief complaint of hypotension, dizziness, weakness x 3 hours. Patient accidentally took her morning and afternoon doses of her hypertensive medication. Patient was seen by her primary care provider this morning had multiple hypotensive blood pressure readings and was sent to the emergency room I have greeted and performed a focused initial assessment of this patient. A comprehensive ED assessment and evaluation of the patient, analysis of all test results, and completion of the medical decision making process will be conducted by additional ED providers. Chief Complaint: General Adult/Misc Complain Time Seen by Provider: 03/09/25 11:31 Vital signs: Vital Signs Temperature 98.1 F 03/09/25 11:28 Pulse Rate 60 03/09/25 11:28 Respiratory Rate 16 03/09/25 11:28 Blood Pressure 91/51 L 03/09/25 11:28 Pulse Oximetry (%) 96 03/09/25 11:28 Oxygen Delivery Method Room Air 03/09/25 11:28 Vital signs reviewed by provider: Yes
[2025-03-09 11:56] LABS: Basophils # (Auto) 0.0 Thou/mm3 (0.0-0.2); Basophils % (Auto) 1 % (0-2.5); Eosinophils # (Auto) 0.0 Thou/mm3 (0.0-0.5); Eosinophils % (Auto) 0 % (0-10); Hematocrit 29.1 % (36.0-46.0); Hemoglobin 9.4 g/dL (12.0-16.0); Immature Granulocytes Auto 0.08 Thou/mm3 (0.00-0.00); Lymphocytes # (Auto) 0.6 Thou/mm3 (1.0-4.8); Lymphocytes % (Auto) 12 % (10-50); Mean Corpuscular HGB Conc 32.3 g/dl (31.0-37.0); Mean Corpuscular Hemoglobin 32.0 pg (25.0-35.0); Mean Corpuscular Volume 99 fL (80-100); Monocytes # (Auto) 0.6 Thou/mm3 (0.0-0.8); Monocytes % (Auto) 11 % (0-12); Neutrophils # (Auto) 3.6 Thou/mm3 (1.8-7.7); Neutrophils % (Auto) 74 % (37-80); Nucleated Red Blood Cell # 0.00 Thou/mm3 (0.00-0.00); Nucleated Red Blood Cell % 0 /100 WBC (0); Platelet Count 345 Thou/mm3 (140-440); RDW Standard Deviation 52.1 fL (36.4-46.3); Red Blood Count 2.94 Miln/mm3 (4.00-5.20); White Blood Count 4.9 Thou/mm3 (3.6-11.0)
[2025-03-09 12:16] LABS: B-Type Natriuretic Peptide 61 pg/mL (0-100)
[2025-03-09 12:21] LABS: Collection Type, Urine Clean Catch; Squamous Epithelial Cell,Urine 0 /hpf (0-5)
[2025-03-09 12:23] LABS: Bilirubin,Urine Negative (Negative); Blood,Urine Negative (Negative); Clarity,Urine Clear (Clear/Hazy); Color,Urine Lt-Yellow (Lt Yel-Yel); Glucose, Urine Negative (Negative); Hyaline Casts,Urine < 1 /hpf (0-1); Ketones,Urine Negative (Negative); Leukocyte Esterase,Urine Negative (Negative); Nitrite,Urine Negative (Negative); PH,Urine 6.0 (5.0-7.0); Protein,Urine Negative (Neg - Trace); RBC,Urine 3 /hpf (0-3); Specific Gravity,Urine 1.022 (1.001-1.035); Urobilinogen,Urine Negative mg/dL (0.0-1.0); WBC,Urine 1 /hpf (0-5)
[2025-03-09 12:28] LABS: Alanine Aminotransferase 8 U/L (10-49); Albumin, Serum 4.0 gm/dL (3.4-4.8); Albumin/Globulin Ratio 2.5 (1.2-2.2); Alkaline Phosphatase 89 U/L (46-116); Anion Gap 7 (7-16); Aspartate Amino Transferase 11 U/L (0-34); BUN/Creatinine Ratio 16 Ratio (12-20); Bilirubin,Total 0.2 mg/dL (0.3-1.2); Blood Urea Nitrogen 14 mg/dL (9-23); Calcium 8.9 mg/dL (8.3-10.6); Calcium (Corrected) 8.9 mg/dL (8.5-10.1); Carbon Dioxide 25.4 mMol/L (20.0-31.0); Chloride 110 mMol/L (98-107); Creatinine (Component) 0.9 mg/dL (0.6-1.3); Globulin 1.6 gm/dL (2.3-3.5); Glucose 134 mg/dL (74-106); Osmolality,Calculated 285 (275-295); Potassium 4.1 mMol/L (3.4-5.1); Sodium 142 mMol/L (136-145); Total Protein 5.6 gm/dL (5.7-8.2); Troponin I < 0.020 ng/mL (0.0-0.045); eGFR > 60 See Note
[2025-03-09 14:05] VITALS: BP 129/65; PULSE 65; RESP 18; TEMP 36.6; O2SAT 95
--- NOTE | 2025-03-09 14:19 | EDNOTE_ITS ---
<Statement entered by Hillary Holm MD - 03/18/25 19:19> As co-signing physician, I was present and available for consult prn. I concur with the plan and care as documented by the midlevel provider. ED General RME/HPI General Chief complaint: General Adult/Misc Complain Stated complaint: TOOK TOO MUCH BP MED; BP LOW; SENT BY PCP Time Seen by Provider: 03/09/25 11:31 Arrival date/time: 03/09/25 11:20 RME / HPI RME / HPI narrative: 03/09/25 11:20 74-year-old female with a history of hypertension, hyperlipidemia presents to the emergency room with a chief complaint of hypotension, dizziness, weakness x 3 hours. Patient accidentally took her morning and afternoon doses of her hypertensive medication. Patient was seen by her primary care provider this morning had multiple hypotensive blood pressure readings and was sent to the emergency room I have greeted and performed a focused initial assessment of this patient. A comprehensive ED assessment and evaluation of the patient, analysis of all test results, and completion of the medical decision making process will be conducted by additional ED providers. DR. HOLM MAIN ED EVALUATION 74 year old female with history of hypertension, hyperlipidemia, metastatic breast cancer undergoing chemotherapy at [facility] presents to the ED for evaluation of dizziness and feeling globally weak after taking double dose of her hyperten shayna medication. States she had taken her morning and noon dose together. No other injuries reported. Denies fever, chills, sweating. Denies chest pain, cough, shortness of breath. Denies nausea, vomiting, diarrhea, constipation. Denies dysuria, urinary frequency and urgency. Related Data Previous Rx's ?Medication ?Instructions ?Recorded amlodipine 5 mg tablet 5 mg PO QDAY #30 tabs atorvastatin 20 mg tablet 20 mg PO HS #30 tabs 5 lisinopril 40 mg tablet 40 mg PO QDAY #30 tabs 09/30 melatonin 3 mg tablet 3 mg PO HS PRN Sleep #30 tab s 09/30/24 pantoprazole 40 mg tablet,delayed 40 mg PO QDAY #14 ta bs 09/30/24 release (Protonix) blood pressure monitor (Blood #1 ea 10/01/24 Pressure Kit) mineral oil (Dsfrl-Ni-Aej Enema 118 ml VT QDAY PRN con stipation 01/22/25 (mineral oil)) #133 mL Allergies Allergy/AdvReac Type Severity Reaction Status Date / Time No Known Allergies Allergy Verified 03/09/25 11:23 Review of Systems Review of Systems Systems Reviewed: All systems reviewed, normal except as documented Past Medical History Past Medical History NEUROLOGIC: Negative Neurological Disorders CARDIAC: Negative Cardiac Disorders GASTROINTESTINAL: Negative Gastrointestinal Disorders GENITOURINARY: Negative Genitourinary Disorders MUSCULOSKELETAL: Negative Musculoskeletal Disorders ENDOCRINE: Negative Endocrine Disorders Family History FAMILY HISTORY: Positive Family Cancer (pt's mom throat cancer) Social History SMOKING STATUS: Former smoker SUBSTANCE USE: former substance user ED Exam Narrative Physical exam: GENERAL APPEARANCE:? alert and oriented x 4, well-developed, well-nourished, no acute distress HEENT: normocephalic, atraumatic NECK: supple LUNGS: no respiratory distress, normal effort HEART: good peripheral perfusion ABDOMEN: non distended EXTREMITIES:? atraumatic NEUROLOGIC: awake; alert and oriented x4; cranial nerves II-XII grossly intact PSYCHIATRIC:? appropriate mood and affect SKIN: warm, dry, normal color; no rashes Course Quality Measures none Orders Category Date Time Status EKG (ED ONLY) *Do not use* NOW Care 03/09/25 11:36 Completed EKG (ED Only) Stat Exams 03/09/25 11:36 Draft B-Type Natriuretic Peptide Stat Lab 03/09/25 11:41 Completed CBC Stat Lab 03/09/25 11:41 Completed Comprehensive Metabolic Panel Stat Lab 03/09/25 11:41 Completed Troponin I Stat Lab 03/09/25 11:41 Completed Urinalysis Stat Lab 03/09/25 12:12 Completed Vital Signs Vital signs: Vital Signs Temperature 98.1 F 03/09/25 11:28 Pulse Rate 60 03/09/25 11:28 Respiratory Rate 16 03/09/25 11:28 Blood Pressure 91/51 L 03/09/25 11:28 Pulse Oximetry (%) 96 03/09/25 11:28 Oxygen Delivery Method Room Air 03/09/25 11:28 Pulse ox is 96% on room air which is adequate. Discharge Plan Plan Patient Disposition: HOME (Self Care) Prescriptions/Referrals Prescriptions/Med Rec: No Action atorvastatin 20 mg Tablet 20 mg PO HS Qty: 30 0RF amlodipine 5 mg Tablet 5 mg PO QDAY Qty: 30 0RF lisinopril 40 mg tablet 40 mg PO QDAY Qty: 30 0RF melatonin 3 mg Tablet 3 mg PO HS PRN (Reason: Sleep) Qty: 30 0RF pantoprazole [Protonix] 40 mg tablet,delayed release (DR/EC) 40 mg PO QDAY Qty: 14 0RF (DME) blood pressure monitor [Blood Pressure Kit] Kit See Rx Instructions .Route Qty: 1 0RF Rx Instructions: As directed mineral oil [Znysv-Hl-Hfb Enema (min oil)] Enema 118 ml VT QDAY PRN (Reason: constipation) Qty: 133 2RF Rx Instructions: discard any unused portion Referrals: Barbara Parekh FNP-C [Primary Care Provider] - In 1 week Problem List Clinical Impression: Medication administered at wrong time, Low blood pressure reading Patient/Caregiver Discharge Instructions Education Materials: Tips for Taking Medicines Print Language: Polish Stand Alone Forms: Jennifer Award Info., Patient Portal Info Letter MDM Narrative [facility] hospital course: Valarie Tadeo am scribing for and in the presence of Dr. Holm. On reassessment, patient reported feeling improved and requesting to go home. Clinical Information Provided by patient Medical Records Reviewed [facility] I reviewed ED visit on 01/22/2025 for fecal impaction. Meds/Rx Considered, not Ordered None Labs/Rad/Tests considered, not Ordered None Chronic Illness/Social Conditions which may negatively complicate care or outcome(s)-explain: None or not applicable EKG Interpretation EKG #1: Date/time of EK03/09/25 11:42 AM EKG interpretation: Normal sinus rhythm, rate 61, no acute ischemic changes, no STEMI. Lab Interpretation Labs: interpreted by va Lab(s) interpretation(s): No leukocytosis UA negative for infection Imaging Imaging interpretation: none Medication Administration(s) none Diagnosis Most likely dx, and/or detailed dx discussion: Medication administration at wrong time Low blood pressure reading Dispositon Disposition: Discharge Home
== END 2025-03-09 14:40 | disposition home or self-care (01) ==
PROVIDERS: Nurse Practitioner Family; Emergency Provider Emergency Medicine; PCP Nurse Practitioner Family
DX: T46.4X1A Poisoning by angiotensin-converting-enzyme inhibitors, accidental (unintentional), initial encounter (principal); R03.1 Nonspecific low blood-pressure reading
CPT/HCPCS: 36415; 80053; 81001; 83880; 84484; 85025; 93005; 99283

== ENCOUNTER 2025-03-16 16:04 | Outpatient (RCR) | payer OTHER, MEDICAID, SELFPAY ==
[2025-03-14 13:58] LABS: Basophils # (Auto) 0.1 Thou/mm3 (0.0-0.2); Basophils % (Auto) 1 % (0-2.5); Eosinophils # (Auto) 0.1 Thou/mm3 (0.0-0.5); Eosinophils % (Auto) 1 % (0-10); Hematocrit 29.2 % (36.0-46.0); Hemoglobin 9.4 g/dL (12.0-16.0); Immature Granulocytes Auto 0.02 Thou/mm3 (0.00-0.00); Lymphocytes # (Auto) 0.6 Thou/mm3 (1.0-4.8); Lymphocytes % (Auto) 14 % (10-50); Mean Corpuscular HGB Conc 32.2 g/dl (31.0-37.0); Mean Corpuscular Hemoglobin 32.0 pg (25.0-35.0); Mean Corpuscular Volume 99 fL (80-100); Monocytes # (Auto) 0.6 Thou/mm3 (0.0-0.8); Monocytes % (Auto) 15 % (0-12); Neutrophils # (Auto) 2.7 Thou/mm3 (1.8-7.7); Neutrophils % (Auto) 67 % (37-80); Nucleated Red Blood Cell # 0.00 Thou/mm3 (0.00-0.00); Nucleated Red Blood Cell % 0 /100 WBC (0); Platelet Count 270 Thou/mm3 (140-440); RDW Standard Deviation 52.1 fL (36.4-46.3); Red Blood Count 2.94 Miln/mm3 (4.00-5.20); White Blood Count 4.0 Thou/mm3 (3.6-11.0)
[2025-03-14 14:29] LABS: Alanine Aminotransferase 8 U/L (10-49); Albumin, Serum 3.9 gm/dL (3.4-4.8); Albumin/Globulin Ratio 2.4 (1.2-2.2); Alkaline Phosphatase 78 U/L (46-116); Anion Gap 10 (7-16); Aspartate Amino Transferase 13 U/L (0-34); BUN/Creatinine Ratio 27 Ratio (12-20); Bilirubin,Total 0.3 mg/dL (0.3-1.2); Blood Urea Nitrogen 19 mg/dL (9-23); Calcium 8.7 mg/dL (8.3-10.6); Calcium (Corrected) 8.8 mg/dL (8.5-10.1); Carbon Dioxide 28.8 mMol/L (20.0-31.0); Chloride 109 mMol/L (98-107); Creatinine (Component) 0.7 mg/dL (0.6-1.3); Globulin 1.6 gm/dL (2.3-3.5); Glucose 106 mg/dL (74-106); Osmolality,Calculated 296 (275-295); Potassium 3.9 mMol/L (3.4-5.1); Sodium 148 mMol/L (136-145); Total Protein 5.5 gm/dL (5.7-8.2); eGFR > 60 See Note
--- NOTE | 2025-03-27 18:06 | CTCFLWUP_ITS ---
Patient: BASHIR RDZ : 1950 Page 4 of 4 FOLLOW UP NOTE DATE OF SERVICE: 03/16/2025 NAME: BASHIR RDZ ACCOUNT: [id number] : 1950 AGE: 75 INTERVAL HISTORY: Patient is here to follow up. Completing chemotherapy . 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 - presented initially with right sided upper abdominal/ rib pain - CT C/A/P from outside facility showed right axillary lymphadenopathy, 16 mm retro-areolar breast mass with thickening of the right chest wall, numerous pulmonary nodules, 16 mm splenic leSIon, - Unden/vent colonoscopy which showed large, partially obstructing mass in sigmoid colon .biopsy or right breast mass/ axilla. 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 MYC-IGH, BCLZ. BCL6 rearrangements present by FISH. Ki-67 moderately h gh, 70-80%. 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 Patient also on prophylaxis with acyclovir Bactrim Friday and tumor lysis prophylaxis with allopurinol OTHER MEDICAL HISTORY/CONDITIONS: HIGH?BLOOD?PRESSURE DENIES FAMILY HISTORY: Mother:?THROAT?/??1980S Sibling:?SISTER/??THROAT Cancer?History:?NIECE???COLON/ SOCIAL HISTORY: Occupational?History:?[employer] Education?Level:?Completed High School Marital?Status:?Single Tobacco?Pack?per?Day:?0 Tobacco?Use?Years:?60 ETOH?Use:?DENIES Drug?Note:?DENIES Social History Note:?LIVES WITH DAUGHTER DIRECTOR OF STUDENT AFFAIRS HISTORY: Menarche?-?Age:?11 Menopause:?50 Hormone?Use:??USED?BCP??UNKNOWN :?4 Live?Births:?4 Age?1st?:?16 MEDICATIONS: 1. acyclovir - 200 mg As directed 2. allopurinol - 300 mg Daily 3. Claritin - 10 mg Daily 4. fluconazole - 200 mg Daily 5. hydralazine - 500 mg Daily 6. hydrocodone-acetaminophen - 5-325 mg 1 tab Daily 7. levofloxacin - 50 mg Three times a day 8. potassium chloride - 20 mEq 1 tab Daily 9. Protonix - 40 mg 1 tab Daily 10. sulfamethoxazole - 160 mg As directed Medications Last Reconciled by Ana Clement MA on 11/18/2024 (Reconcile on Approval: ?) ALLERGIES: REVIEW OF SYSTEMS: A complete 14-point review of systems was performed and is negative except as noted in interval history. PHYSICAL EXAMINATION: VITAL SIGNS: PAIN: 0 - No pain ECOG Performance Status: 0 - Asymptomatic and fully active GENERAL APPEARANCE: Appears well, in no apparent distress, appropriately interactive. HEENT: Normocephalic, no temporal wasting, normal conjunctiva, no scleral icterus, normal hearing, lips without lesions, neck normal range of motion. CARDIOVASCULAR: Not assessed. PULMONARY: Normal respiratory effort, no respiratory distress or use of accessory muscles, speaking in full sentences, no tachypnea. EXTREMITIES: No pedal edema or cyanosis. SKIN: Normal skin appearance. NEUROLOGIC: Alert and oriented x4. PSHYCHIATRIC: Appropriate affect, mood normal, behavior normal, intact thought and speech. LABORATORY DATA: I have personally reviewed and interpreted each of the patient?s relevant lab tests, abnormal findings are below: Date 03/09/25 03/14/25 ??WHITE?BLOOD?COUNT?(Thou/mm3) 4.9 4.0 ??RED?BLOOD?COUNT?(Miln/mm3) 2.94?L 2.94?L ??HEMOGLOBIN?(gm/dl) 9.4?L 9.4?L ??HEMATOCRIT?(%) 29.1?L 29.2?L ??PLATELET?COUNT?(Thou/mm3) 345 270 ??NEUTROPHILS?%,?AUTO?(%) 74 67 ??LYMPH?%,?AUTO?(%) 12 14 ??NEUTROPHILS,?AUTO?(Thou/mm3) 3.6 2.7 ??GLUCOSE,RANDOM?(mg/dL) 134?H 106 ??BLOOD?UREA?NITROGEN?(mg/dL) 14 19 ??CREATININE?(mg/dL) 0.90 0.70 ??SODIUM?(mmol/L) 142 148?H ??POTASSIUM?(mmol/L) 4.1 3.9 ??CHLORIDE?(mmol/L) 110?H 109?H ??CrCl?(CandG)?(ml/min) 77.60 99.56 ??AST/SGOT?(Unit/L) 11 13 ??ALT/SGPT?(Unit/L) 8?L 8?L ??ALKALINE?PHOSPHATASE?(Unit/L) 89 78 ??BILIRUBIN,?TOTAL?(mg/dL) 0.2?L 0.3 ??PROTEIN?TOTAL?(gm/dl) 5.6?L 5.5?L ??ALBUMIN,?SERUM?(gm/dl) 4.0 3.9 ??GLOBULIN?(gm/dl) 1.6?L 1.6?L ??ALBUMIN/GLOBULIN?RATIO 2.5?H 2.4?H ??CALCIUM,?SERUM?(mg/dL) 8.9 8.7 ??CALCIUM?SERUM?(CORRECTED)?(mg/dL) 8.9 8.8 ASSESSMENT/PLAN: Diffuse large B-cell lymphoma triple hit Patient completed adjusted R-EPOCH and intrathecal chemotherapy 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 PET scan ordered ORDERS: Order # Description [id number] MD Follow Up + MD Follow Up 3 Months + CBC with Auto Diff + Comprehensive Metabolic Panel - 12 + Uric Acid, Serum [id number] Lactate Dehydrogenase (LDH) RETURN TO CLINIC: I reviewed the diagnosis, prognosis, and recommended treatment/procedure options with the patient (and/or their legal financial representative), including the potential benefits, risks, side effects and alternative therapies. We also discussed the option of no treatment and the possibility of clinical trial participation, if applicable. All questions were addressed, and they demonstrated understanding. They provided informed consent to proceed with the proposed plan of care. BILLING AND COMPLIANCE: I reviewed external records from providers outside my specialty as summarized above. I spent a total of 50 minutes on this patient?s care on the day of their visit excluding time spent related to any billed procedures. This time includes time spent with the patient as well as time spent documenting in the medical record, reviewing patients records and tests, obtaining history, placing orders, communicating with other healthcare professionals, counseling the patient, family or caregiver, and/or care coordination for the diagnoses above. Electronically Signed by: {Object.Sanct_ID*PnP.NameFL@M}, {Object.Sanct_ID*PnP.Suffix@U} D: {Object.Sanct_Date} T: {Object.Sanct_Time} CC: PCP: Yvon Mclean Referring: Preston Ny This document was completed utilizing speech recognition software. Grammatical errors, random word insertions, pronoun errors, and incomplete sentences are an occasional consequence of this system due to software limitations, ambient noise, and hardware issues. Any formal questions or concerns about the content, text or information contained within the body of this dictation should be directly addressed to the provider for clarification.
== END 2025-04-07 23:59 | disposition home or self-care (01) ==
LOC: SCTC 16:04
PROVIDERS: PCP Internal Medicine Hematology; Referring Provider Internal Medicine Hematology; Visit Provider Internal Medicine Hematology & Oncology
DX: C83.38 Diffuse large B-cell lymphoma, lymph nodes of multiple sites (principal)
CPT/HCPCS: 36591; 80053; 85025; 99212; A4216; J1642; G0463

== ENCOUNTER → 2025-05-23 | Outpatient (CLI) | payer OTHER, MEDICAID, SELFPAY ==
--- NOTE | 2025-05-23 09:00 | XR_ITS ---
Examination: Ultrasound soft tissue extremity left lower back TECHNIQUE: Grayscale sonographic images soft tissue left lower back Date and time: May 23, 2025 0936 hours INDICATIONS: Palpable lump in the left lower back several months. FINDINGS: Hyperechoic mass in the lower back 7 x 4 x 11 mm most consistent with lipoma IMPRESSION: Probable lipomatous mass in the soft tissue at the area concern, consider 6 month follow-up ultrasound soft tissue
== END | disposition home or self-care (01) ==
PROVIDERS: PCP Nurse Practitioner Family; Referring Provider Nurse Practitioner Family; Visit Provider Nurse Practitioner Family
DX: R22.2 Localized swelling, mass and lump, trunk (principal)
CPT/HCPCS: 76882

== ENCOUNTER → 2025-05-27 | Outpatient (CLI) | payer OTHER, MEDICAID, SELFPAY ==
--- NOTE | 2025-05-27 09:30 | ECHO_ITS ---
Transthoracic Echo Report Ht (in): 59 Wt (lb): 205 Exam Location: Echo Lab Status: Outpatient Water Proofer: Giuliana Rodas Indications: Procedure Performed: BP: 189 / 121 HR: 61 MEASUREMENTS (Male / Female) Normal Values 2D ECHO LV Diastolic Diameter PLAX 4.2 cm 4.2 - 5.9 / 3.9 - 5.3 cm LV Systolic Diameter PLAX 2.7 cm IVS Diastolic Thickness 1.1 cm 0.6 - 1.0 / 0.6 - 0.9 cm LVPW Diastolic Thickness 1.1 cm 0.6 - 1.0 / 0.6 - 0.9 cm LV Relative Wall Thickness 0.5 LVOT Diameter 1.9 cm Ascending Aorta Diameter 2.8 cm M-MODE AV Cusp Separation MM 1.2 cm DOPPLER MV Area PHT 2.5 cm? Mitral E Point Velocity 117.0 cm/s Mitral A Point Velocity 127.0 cm/s Mitral E to A Ratio 0.9 TR Peak Velocity 227.0 cm/s TR Peak Gradient 20.6 mmHg TV Peak E Velocity 6.0 cm/s PV Peak Velocity 95.0 cm/s PV Peak Gradient 3.6 mmHg FINDINGS Left Ventricle Normal left ventricular size, wall thickness, systolic function with no obvious regional wall motion abnormalities.There is Grade I diastolic dysfunction of the left ventricle (impaired relaxation pattern). The ejection fraction is visually estimated at 55-60 %. Right Ventricle The right ventricle is normal in size and systolic function. The estimated right ventricular systolic pressure, 24 mmHg. Left Atrium The left atrial cavity size is mildly increased. Right Atrium The right atrium is normal by two-dimensional imaging, color flow and Doppler imaging with no structural abnormalities, no thrombus formation present. Atrial Septum The interatrial septum appears normal with no evidence of a shunt. Aorta The aorta is normal by two-dimensional, color flow and Doppler interrogation. Mitral Valve The mitral valve is normal by two-dimensional, color flow and Doppler interrogation. Trace mitral regurgitation. Aortic Valve The aortic valve is trileaflet and normal by two-dimensional, color flow and Doppler interrogation. There is no significant aortic valve regurgitation. Tricuspid Valve The tricuspid valve is normal by two-dimensional, color flow and Doppler interrogation. There is trace tricuspid valve regurgitation. Pulmonic Valve The pulmonic valve is not well visualized. There is no significant pulmonic valve regurgitation. Vessels The pulmonary artery appears normal. The inferior vena cava pulmonary and hepatic veins appear normal. Pericardium The pericardium is normal by two-dimensional imaging. There is no significant pericardial effusion. CONCLUSIONS Indication: diffuse larg B-cell lymphoma Normal left ventricular size and function. Approximate ejection fraction is 55- 60%. Grade I diastolic dysfunction. EF estimated at 55-60% Normal Right ventricular size and function.Normal RVSP Mild dilated LA. Trace TR and MR. No pericardial effusion. Tapan Chi (Electronically Signed) Final Date: 27 May 2025 16:21
--- NOTE | 2025-05-27 09:34 | XR_ITS ---
Examination: Cervical spine 4 views TECHNIQUE: AP, lateral, swimmer's lateral, coned AP odontoid cervical spine 4 views Date and time: May 27, 2025, 0941 hours, comparison November 21, 2014 INDICATIONS: Neck pain radiating to both shoulders one year. FINDINGS: Straightening normal cervical lordosis. No cervical fracture. Intact odontoid. Advanced disc narrowing C3-C4, C4-C5, C5-C6, C6-C7 IMPRESSION: Advanced degenerative disc disease C3-C4, C4-C5, C5-C6, C6-C7
== END | disposition home or self-care (01) ==
PROVIDERS: PCP Nurse Practitioner Family; Referring Provider Internal Medicine Hematology & Oncology; Visit Provider Internal Medicine Hematology & Oncology
DX: M50.31 Other cervical disc degeneration, high cervical region (principal); I50.30 Unspecified diastolic (congestive) heart failure; I08.1 Rheumatic disorders of both mitral and tricuspid valves
CPT/HCPCS: 72040; 93306

== ENCOUNTER 2025-06-14 13:00 | Outpatient (RCR) | payer OTHER, MEDICAID, SELFPAY ==
[2025-06-13 10:34] LABS: Basophils # (Auto) 0.0 Thou/mm3 (0.0-0.2); Basophils % (Auto) 1 % (0-2.5); Eosinophils # (Auto) 0.1 Thou/mm3 (0.0-0.5); Eosinophils % (Auto) 3 % (0-10); Hematocrit 35.3 % (36.0-46.0); Hemoglobin 11.5 g/dL (12.0-16.0); Immature Granulocytes Auto 0.03 Thou/mm3 (0.00-0.00); Lymphocytes # (Auto) 0.6 Thou/mm3 (1.0-4.8); Lymphocytes % (Auto) 17 % (10-50); Mean Corpuscular HGB Conc 32.6 g/dl (31.0-37.0); Mean Corpuscular Hemoglobin 29.9 pg (25.0-35.0); Mean Corpuscular Volume 92 fL (80-100); Monocytes # (Auto) 0.5 Thou/mm3 (0.0-0.8); Monocytes % (Auto) 14 % (0-12); Neutrophils # (Auto) 2.0 Thou/mm3 (1.8-7.7); Neutrophils % (Auto) 63 % (37-80); Nucleated Red Blood Cell # 0.00 Thou/mm3 (0.00-0.00); Nucleated Red Blood Cell % 0 /100 WBC (0); Platelet Count 151 Thou/mm3 (140-440); RDW Standard Deviation 43.4 fL (36.4-46.3); Red Blood Count 3.84 Miln/mm3 (4.00-5.20); White Blood Count 3.2 Thou/mm3 (3.6-11.0)
[2025-06-13 10:53] LABS: Alanine Aminotransferase 14 U/L (10-49); Albumin, Serum 4.0 gm/dL (3.4-4.8); Albumin/Globulin Ratio 2.9 (1.2-2.2); Alkaline Phosphatase 84 U/L (46-116); Anion Gap 9 (7-16); Aspartate Amino Transferase 18 U/L (0-34); BUN/Creatinine Ratio 19 Ratio (12-20); Bilirubin,Total 0.4 mg/dL (0.3-1.2); Blood Urea Nitrogen 13 mg/dL (9-23); Calcium 8.8 mg/dL (8.3-10.6); Calcium (Corrected) 8.8 mg/dL (8.5-10.1); Carbon Dioxide 26.0 mMol/L (20.0-31.0); Chloride 111 mMol/L (98-107); Creatinine (Component) 0.7 mg/dL (0.6-1.3); Globulin 1.4 gm/dL (2.3-3.5); Glucose 131 mg/dL (74-106); LDH (Lactate Dehydrogenase) 265 U/L (120-246); Osmolality,Calculated 292 (275-295); Potassium 3.7 mMol/L (3.4-5.1); Sodium 146 mMol/L (136-145); Total Protein 5.4 gm/dL (5.7-8.2); Uric Acid 5.4 mg/dL (3.1-7.8); eGFR > 60 See Note
== END 2025-07-08 23:59 | disposition home or self-care (01) ==
LOC: SCTC 13:00
PROVIDERS: PCP Internal Medicine Hematology; Referring Provider Internal Medicine Hematology; Visit Provider Internal Medicine Hematology & Oncology
DX: C83.38 Diffuse large B-cell lymphoma, lymph nodes of multiple sites (principal); Z92.21 Personal history of antineoplastic chemotherapy
CPT/HCPCS: 36591; 80053; 83615; 84550; 85025; 99212; A4216; J1642; G0463